=== PATIENT | male | born 1960 ===

== ENCOUNTER 2019-04-30 00:10 | Inpatient (IN) | payer OTHER ==
--- NOTE | 2019-04-30 02:48 | PDOC ---
Attending Attestation - Resident Resident Name: SrinathPaul - ED Attending Attestation I have performed the following: I have examined & evaluated the patient, The case was reviewed & discussed with the resident, I agree w/resident's findings & plan - HPI HPI: 04/30/19 04:22 see resident hpi - Physicial Exam PE: 04/30/19 04:22 agree with resident exam - Medical Decision Making 04/30/19 04:22 58-year-old male with pain and swelling to the left foot Patient has chronic swelling and ulceration to the left great toe but states he had a new injury while visiting [place] Is now painful and swollen On exam foot is vascularly intact but is discolored with deformity and discoloration extending into the distal great toe with ulcer formation Patient will require admission and IV antibiotics
[2019-04-30] MEDS ORDERED: SODIUM CHLORIDE IV ONE (03:00)
--- NOTE | 2019-04-30 03:00 | PDOC ---
History of Present Illness - General Chief Complaint: Edema Stated Complaint: L FOOT SWOLLEN Time Seen by Provider: 04/30/19 02:33 History Source: Patient Exam Limitations: No Limitations - History of Present Illness Initial Comments: 58M PMH IDDM, CAD s/p 5 stents, HTN presenting with pain and swelling of the left foot, especially the great toe, w/ radiation up the salvatore-medial aspect of the LLE since getting off the plane today. Pt was in [place], 2 weeks ago stepped on something that puncture his left great toe, saw MD there and was given abx. Sister at bedside states that left great toe is starting to smell. Pain and swelling started after the plane ride. Endorses 3 days of cough, f/c, and reduced appetite. Denies cp/sob, h/o VTE. No hemoptysis, recent surgery. NKDA No PCP current smoker denies etoh and drugs Past History - Past Medical History Allergies/Adverse Reactions: Allergies Allergy/AdvReac Type Severity Reaction Status Date / Time No Known Allergies Allergy Verified 04/30/19 02:29 Home Medications: Ambulatory Orders Alcohol Antiseptic Pads [Alcohol Prep Pad] 1 each TP TID #50 med..pad 05/04/19 Amoxicillin/Potassium Clav [Augmentin 875-125 Tablet] 1 each PO BID #14 tablet 05/04/19 Aspirin [ASA -] 81 mg PO DAILY #30 tab.chew 05/04/19 Atorvastatin Ca [Lipitor] 40 mg PO DAILY #30 tablet 05/04/19 Insulin Regular [Novolin R Vial -] 14 unit SQ DAILY 30 Days units 05/04/19 Insulin Sliding Scale [Novolog Vial Sliding Scale -] 1 vial SQ ACHS #2 units Lancets 1 each MC AC #50 each 05/04/19 Lisinopril [Zestril] 2.5 mg PO DAILY #30 tablet 05/04/19 Miscellaneous Medical Supply [Glucometer Device] 1 each SQ ASDIR #1 kit Miscellaneous Medical Supply [Glucometer Test Strips #100] 1 each SQ ASDIR #1 box 05/04/19 Mupirocin Ointment [Bactroban] 1 applic TP TID #1 tube 05/04/19 Pen Needle, Diabetic [Lawtey] 1 each MC TID #50 dis.needle 05/04/19 metFORMIN HCL [Metformin HCl] 500 mg PO BID 30 Days #60 tablet 05/04/19 - Psycho Social/Smoking Cessation Hx Smoking History: Never smoked Review of Systems - Review of Systems Able to Perform ROS?: Yes Comments:: CONSTITUTIONAL: Endorses F / C HEENT: Denies sore throat, rhinorrhea RESP: Endorses cough. Denies SOB CARD: Denies chest pain, palpitations GI: Endorses reduced appetite. Denies N / V / D, abdominal pain, bloody stool, inability to tolerate PO : Denies dysuria, hematuria, frequency SKIN: Denies rashes NEURO: Denies numbness, tingling, weakness MSK: Endorses left foot pain and swelling *Physical Exam - Vital Signs Last Vital Signs Temp Pulse Resp BP Pulse Ox 99 F 102 H 18 129/83 98 04/30/19 00:15 04/30/19 00:15 04/30/19 00:15 04/30/19 00:15 04/30/19 00:15 - Physical Exam VS: fever GEN: NAD, comfortable. AAOx3. HEENT: NC/AT. No facial asymmetry. Normal voice. Supple neck w/ FROM. CV: S1/S2, RRR, no m/r/g LUNG: CTAB, no wheezes, crackles, rales, rhonchi. GI: Soft, ndnt, +BS, no guarding, no rebound. No masses. EXTREMITIES: Left foot vascularly intact, swollen w/ 2+ edema w/o crepitus, TTP over the dorsal aspect of the left foot and anteromedial aspect of the ruffin. There is an dry nondraining ulcer at the tip of the left great toe, left great toe is dark compared to rest of foot, there is no sensation of the left great toe. Sensation is intact of the remainder of the LLE. RLE is unremarkable, no ulcers, no discoloration, no TTP, intact sensation, no swelling. No calf tenderness b/l. SKIN: Warm, dry, no rashes appreciated. PSYCH: Normal mood and affect. NEURO: Moving all extremities ED Treatment Course - LABORATORY CBC & Chemistry Diagram: 05/04/19 08:50 05/04/19 08:50 Medical Decision Making - Medical Decision Making 04/30/19 03:00 58M PMH IDDM, CAD s/p 5 stents, HTN presenting with left foot pain and swelling x 1 day in setting of puncturing his left great toe 2 weeks ago. +f/c. +TTP anteromedial aspect of the left ruffin, dorsum of the left foot, edema of the left foot. Dark left great toe w/ nondraining ulcer w/o sensation. DDx - eval for sepsis; concern for OM, septic arthritis, cellulitis, gangrene of the left great toe/foot - sepsis labs - ESR, CRP - fluids - vanc/zosyn (+pseudomonal coverage) - XR left foot 04/30/19 05:47 labs reviewed - WBC 11.7 - CRP 11.8 - Trop 0.06 EKG HR 91 VA 184 QRS 98 QTc 435 NSR, TWI inversions III and aVF; no priors to compare XR concerning for OM - admit med/surg vs tele 04/30/19 06:[address] Raza Discharge - Discharge Information Problems reviewed: Yes Clinical Impression/Diagnosis: Osteomyelitis Qualifiers: Osteomyelitis type: other Osteomyelitis location: foot Laterality: unspecified laterality Qualified Code(s): M86.8X7 - Other osteomyelitis, ankle and foot Condition: Good - Follow up/Referral - Patient Discharge Instructions - Post Discharge Activity
[2019-04-30 04:07] LABS: BASO % 0.8 % (0-2.0); EOS % 0.3 % (0-4.5); HEMATOCRIT 38.4 % (35.4-49); HEMOGLOBIN 12.6 GM/dL (11.7-16.9); LYMPH % 9.2 % (8-40); MCH 26.7 pg (25.7-33.7); MCHC 32.9 g/dl (32.0-35.9); MEAN CELL VOLUME 81.3 fl (80-96); MEAN PLT VOLUME 8.2 fl (7.5-11.1); MONO % 11.5 % (3.8-10.2); NEUT % 78.2 % (42.8-82.8); PLATELET COUNT 383 K/MM3 (134-434); RBC 4.72 M/mm3 (4.00-5.60); RDW 12.7 % (11.9-15.9); WHITE BLOOD COUNT 11.7 K/mm3 (4.0-10.0)
[2019-04-30 04:08] LABS: VENOUS PC02 44.5 mmHg (38-52); VENOUS PH 7.39 (7.31-7.41)
[2019-04-30 04:09] LABS: VENOUS PO2 < 49 mmHg (28-48)
[2019-04-30] MEDS ORDERED: VANCOMYCIN HCL 1,500 MG in DEXTROSE 5%-WATER - 500 ML IVPB ONE (04:12)
[2019-04-30] MEDS ORDERED: PIPERACILLIN/TAZOB 4.5 GM 4.5 GM in DEXTROSE 5%-WATER 100 ML IVPB ONE (04:13)
[2019-04-30] MEDS ORDERED: ACETAMINOPHEN 1000 MG/100 ML VIAL (NON FORMULARY) IVPB ONE (04:16)
[2019-04-30 04:22] LABS: INR 1.23 (0.83-1.09); PROTHROMBIN TIME (PATIENT) 14.6 SEC (9.7-13.0)
[2019-04-30 04:24] LABS: ACTIVATED PTT 31.1 SECONDS (25.2-36.5)
[2019-04-30 04:33] LABS: BILIRUBIN,TOTAL 0.5 mg/dL (0.2-1); BLOOD UREA NITROGEN 14.6 mg/dL (7-18); CALCIUM 8.7 mg/dL (8.5-10.1); CREATININE 1.1 mg/dL (0.55-1.3); POTASSIUM 4.4 mmol/L (3.5-5.1)
[2019-04-30] MEDS ORDERED: PIPERACILLIN/TAZOB 4.5 GM 4.5 GM/100 ML BAG IVPB ONE ×2 (06:18→11:37)
--- NOTE | 2019-04-30 06:59 | PDOC ---
*Physical Exam - Vital Signs Last Vital Signs Temp Pulse Resp BP Pulse Ox 100.3 F H 102 H 18 129/83 98 04/30/19 03:59 04/30/19 00:15 04/30/19 00:15 04/30/19 00:15 04/30/19 00:15 ED Treatment Course - LABORATORY CBC & Chemistry Diagram: 04/30/19 03:40 04/30/19 03:40 - ADDITIONAL ORDERS Additional order review: Laboratory Results 04/30/19 04/30/19 04/30/19 03:40 03:40 03:40 PT with INR INR PTT (Actin FS) VBG pH 7.39 POC VBG pCO2 44.5 POC VBG pO2 < 49 H VBG HCO3 26.5 VBG O2 Sat (Genna) 41.2 L VBG Base Excess 1.8 Sodium Potassium Chloride Carbon Dioxide Anion Gap BUN Creatinine Est GFR (CKD-EPI)AfAm Est GFR (CKD-EPI)NonAf Random Glucose Lactic Acid Calcium Total Bilirubin AST ALT Alkaline Phosphatase Troponin I 0.06 H C-Reactive Protein 11.8 H Total Protein Albumin 04/30/19 04/30/19 04/30/19 03:40 03:40 03:40 PT with INR 14.60 H INR 1.23 H PTT (Actin FS) 31.1 VBG pH POC VBG pCO2 POC VBG pO2 VBG HCO3 VBG O2 Sat (Genna) VBG Base Excess Sodium 130 L Potassium 4.4 Chloride 96 L Carbon Dioxide 28 Anion Gap 6 L BUN 14.6 Creatinine 1.1 Est GFR (CKD-EPI)AfAm 86.52 Est GFR (CKD-EPI)NonAf 74.65 Random Glucose 273 H Lactic Acid 1.2 Calcium 8.7 Total Bilirubin 0.5 AST 14 L ALT 17 Alkaline Phosphatase 85 Troponin I C-Reactive Protein Total Protein 8.0 Albumin 3.0 L 04/30/19 03:40 RBC 4.72 MCV 81.3 MCHC 32.9 RDW 12.7 MPV 8.2 Neutrophils % 78.2 Lymphocytes % 9.2 Monocytes % 11.5 H Eosinophils % 0.3 Basophils % 0.8 - Medications Given in the ED: ED Medications Discontinued Medications Generic Name Dose Route Start Last Admin Trade Name Freq PRN Reason Stop Dose Admin Sodium Chloride 2,478 mls @ 1,239 mls/hr 04/30/19 03:00 04/30/19 04:10 Normal Saline - 30 ml/kg infuse over 2 hr (2478 ml) 04/30/19 04:59 1,239 mls/hr IV Administration ONCE ONE Piperacillin Sod/Tazobactam 100 mls @ 200 mls/hr 04/30/19 04:13 04/30/19 06: 26 Sod 4.5 gm/ Dextrose IVPB 04/30/19 04:42 200 mls/hr ONCE ONE Administration Protocol Medical Decision Making - Medical Decision Making 04/30/19 06:55 Pt received on sign out from Dr. Yo. Pt from [place], had wound to left toe. On flight yesterday and subsequently developed LLE swelling. Absent sensation of left toe. XR shows likely osteo of left toe. CPR elevated 11.8. Trop elevated 0.06. EKG shows T wave inversions in leads III and aVF. Given vanc/zosyn pseudomonal dose. -admit to medicine -2nd trop 04/30/19 0900 D/w the hospitalist team who accepts the patient for admission. Discharge - Discharge Information Problems reviewed: Yes Clinical Impression/Diagnosis: Osteomyelitis Condition: Fair - Admission Yes - Follow up/Referral - Patient Discharge Instructions - Post Discharge Activity
--- NOTE | 2019-04-30 09:08 | HP ---
CHIEF COMPLAINT: L. foot pain and swelling PCP: unknown HISTORY OF PRESENT ILLNESS: Pt. is a 58 y.o. M w. PMHx. of DM2 with peripheral neuropathy(diagnosed 25 years ago), CAD( s/p 5 stents 5-6 years ago), and HTN presents for left hallux pain and swelling over the last 2 weeks. Pt. states that around 2 weeks ago he stepped on something but does not remember what or when. He noticed that his big toes was getting more swollen and had burning sensation at that time so her went to a Physician in [place] who gave him a 5 day course of an antibiotic that he took twice a day (Augmentin). Pt. states that 3 days ago he started to develop cough, fever, chills and decreased PO intake. 2 days ago he started to develop nausea and vomiting. Pt. states that while in [place] and after his big toe injury he did step in sand, soil and water without shoes. Per Pt. sister at bedside, Pt. is an avid diana and frequently gets into accidents from this. Pt. had a left big toe injury 5-6 years ago which required IV antibitics and I&D. Pt. endorses pain that travels from his left toe to just below the medial aspect of his left leg. Pt. states that he has had a flu vaccine but is unsure if he had a tetanus vaccine. Pt. has never had a Pneumonia vaccine or colonoscopy. Pt. has strong family history in his parents and siblings for heart disease and diabetes. Pt. father at 46 from massive LA. Pt. endorses slight numbness on his left foot compared to his right. Pt. currently denies any shortness of breath, chest pain, lower extremity weakness, abdominal pain, diarrhea or constipation. ER course was notable for: (1)Vanc/ Zosyn, BCx., UCx. (2)Foot X-ray, CXR (3) Recent Travel: Just returned from [place] Yesterday PAST MEDICAL HISTORY: As above PAST SURGICAL HISTORY: L. Big toe I&D Social History: SmokinPPD x 30years Alcohol: Denies Drugs: Denies Allergies No Known Allergies Allergy (Verified 04/30/19 02:29) HOME MEDICATIONS: Home Medications Medication Instructions Recorded Aspirin [ASA -] 81 mg PO DAILY 04/30/19 Insulin Regular [NOVOLIN R VIAL 14 unit SQ DAILY 04/30/19 *IVPUSH / ER / ICU Only*] REVIEW OF SYSTEMS As above. PHYSICAL EXAMINATION Vital Signs - 24 hr 04/30/19 04/30/19 04/30/19 00:15 03:59 06:57 Temperature 99 F 100.3 F H 98.3 F Pulse Rate 102 H Pulse Rate [ 88 Left Radial] Respiratory 18 15 Rate Blood Pressure 129/83 Blood Pressure 145/85 [Right Arm] O2 Sat by Pulse 98 98 Oximetry (%) GENERAL: Awake, alert, and fully oriented, in no acute distress. HEAD: Normal with no signs of trauma. EYES: Extraocular movements intact, sclera anicteric, conjunctiva clear. EARS, NOSE, THROAT: Ears normal, nares patent, moist mucous membranes. LUNGS: Breath sounds equal, clear to auscultation bilaterally. No wheezes, and no crackles. No accessory muscle use. HEART: Regular rate and rhythm, normal S1 and S2 without murmur ABDOMEN: Soft, nontender, not distended, normoactive bowel sounds, no guarding, no rebound, no masses. MUSCULOSKELETAL: Normal range of motion at all joints. UPPER EXTREMITIES: 2+ radial pulses, warm, well-perfused. No cyanosis. No clubbing. No peripheral edema. LOWER EXTREMITIES: 2+ dorsal pedal pulses, warm, well-perfused. Tenderness present from the dorsum of the lower extremity to the medial aspect of the left leg to just below the knee. L. Hallux swollen, darkened to metatarsal, non- draining with opened wound, no crepitus palpated NEUROLOGICAL: 5/5 strength througout, mild numbness in Left foot. Sensation intact in upper extremities PSYCHIATRIC: Cooperative. Good eye contact. Appropriate mood and affect. SKIN: Warm, dry, normal turgor, no rashes or lesions noted, normal capillary refill. Laboratory Results - last 24 hr 04/30/19 04/30/19 04/30/19 03:40 03:40 03:40 WBC 11.7 H RBC 4.72 Hgb 12.6 Hct 38.4 MCV 81.3 MCH 26.7 MCHC 32.9 RDW 12.7 Plt Count 383 MPV 8.2 Absolute Neuts (auto) 9.2 H Neutrophils % 78.2 Lymphocytes % 9.2 Monocytes % 11.5 H Eosinophils % 0.3 Basophils % 0.8 Nucleated RBC % 0 ESR PT with INR INR PTT (Actin FS) VBG pH POC VBG pCO2 POC VBG pO2 VBG HCO3 VBG O2 Sat (Genna) VBG Base Excess Sodium 130 L Potassium 4.4 Chloride 96 L Carbon Dioxide 28 Anion Gap 6 L BUN 14.6 Creatinine 1.1 Est GFR (CKD-EPI)AfAm 86.52 Est GFR (CKD-EPI)NonAf 74.65 Random Glucose 273 H Lactic Acid 1.2 Calcium 8.7 Total Bilirubin 0.5 AST 14 L ALT 17 Alkaline Phosphatase 85 Troponin I C-Reactive Protein Total Protein 8.0 Albumin 3.0 L 04/30/19 04/30/19 04/30/19 03:40 03:40 03:40 WBC RBC Hgb Hct MCV MCH MCHC RDW Plt Count MPV Absolute Neuts (auto) Neutrophils % Lymphocytes % Monocytes % Eosinophils % Basophils % Nucleated RBC % ESR PT with INR 14.60 H INR 1.23 H PTT (Actin FS) 31.1 VBG pH 7.39 POC VBG pCO2 44.5 POC VBG pO2 < 49 H VBG HCO3 26.5 VBG O2 Sat (Genna) 41.2 L VBG Base Excess 1.8 Sodium Potassium Chloride Carbon Dioxide Anion Gap BUN Creatinine Est GFR (CKD-EPI)AfAm Est GFR (CKD-EPI)NonAf Random Glucose Lactic Acid Calcium Total Bilirubin AST ALT Alkaline Phosphatase Troponin I 0.06 H C-Reactive Protein Total Protein Albumin 04/30/19 04/30/19 03:40 03:40 WBC RBC Hgb Hct MCV MCH MCHC RDW Plt Count MPV Absolute Neuts (auto) Neutrophils % Lymphocytes % Monocytes % Eosinophils % Basophils % Nucleated RBC % ESR 72 H PT with INR INR PTT (Actin FS) VBG pH POC VBG pCO2 POC VBG pO2 VBG HCO3 VBG O2 Sat (Genna) VBG Base Excess Sodium Potassium Chloride Carbon Dioxide Anion Gap BUN Creatinine Est GFR (CKD-EPI)AfAm Est GFR (CKD-EPI)NonAf Random Glucose Lactic Acid Calcium Total Bilirubin AST ALT Alkaline Phosphatase Troponin I C-Reactive Protein 11.8 H Total Protein Albumin ASSESSMENT/PLAN: Pt. is a 58 y.o. M w. PMHx. of DM2 with peripheral neuropathy(diagnosed 25 years ago), CAD( s/p 5 stents 5-6 years ago), and HTN presents for left hallux pain and swelling over the last 2 weeks. #Diabetic Foot infection Foot X-ray: highly suggestive of OM, with soft tissue air ESR: 72 CRP: 11.8 LA: 1.2 will continue with Vancomycin and Zosyn, because of broad differential of pathogens given multiple environments that Pt. exposed his foot to including Pseudomonas which requires Zosyn at 4.5gm Q6H ID Consult to Dr. Sneed appreiciated Podiatry Consult to Dr. Weiss appreciated Wound Care Consult to Dr. John appreciated #DM2- uncontrolled Initial Glucose 273 Pt. states that in [place] his Glucose was 300, but he only checked once, [place] glucose is usually in the 250s. Will start Insulin sliding scale and calculate a long acting dose to better control glucose levels. Pt. will require outpatient Podiatry and Ophthalmology follow-up. f/u UA for proteinuria #Nicotine Dependance f/u Low dose Chest CT will give Nicotine Patch #CAD (s/p 5-6 stents) Pt. states that he takes ASA 81 mg only and was discontinued off another "blood thinner" by his doctor c/w ASA 81mg #HTN Pt. denies taking any medications for blood pressure. Will continue to monitor, Pt. will likely need to be started on an RIC/ARB prior to discharge for renal protection. f/u Urine Cr. ratio as Pt. has 2+ protein in UA #FEN no IVF, encourage PO intake monitor electrolytes and replete as needed Diabetic Diet #DVT Ppx. Hep SQ TID Visit type - Emergency Visit Emergency Visit: Yes ED Registration Date: 04/30/19 Care time: The patient presented to the Emergency Department on the above date and was hospitalized for further evaluation of their emergent condition. - New Patient This patient is new to me today: Yes Date on this admission: 04/30/19 - Critical Care Critical Care patient: No ATTENDING PHYSICIAN STATEMENT I saw and evaluated the patient. I reviewed the resident's note and discussed the case with the resident. I agree with the resident's findings and plan as documented. SUBJECTIVE: OBJECTIVE: ASSESSMENT AND PLAN:
[2019-04-30] MEDS ORDERED: PIPERACILLIN/TAZOB 4.5 GM 4.5 GM in DEXTROSE 5%-WATER - 100 ML IVPB SCH (10:00)
[2019-04-30] MEDS ORDERED: TETANUS AND DIPHTHERIA TOXOID 0.5 ML DISP.SYRIN IM ONE (10:08)
[2019-04-30] MEDS ORDERED: TETANUS IMMUNE GLOBULIN 250 UNITS DISP.SYRIN IM ONE ×2 (10:45→11:00)
[2019-04-30] MEDS ORDERED: TETANUS TOXOID ADSORBED IM ONE (11:00)
[2019-04-30] MEDS: INSULIN SLIDING SCALE (NOVOLOG) 1 VIAL SQ SCH ×3 (11:30→21:41)
[2019-04-30] MEDS: HEPARIN NA (PORCINE) 5,000 UNITS/ML 1ML VIAL SQ SCH ×2 (11:30→18:38)
[2019-04-30] MEDS: ASPIRIN 81 MG CHEWABLE TABLETS PO SCH (11:30)
[2019-04-30] MEDS ORDERED: ASPIRIN 81 MG CHEWABLE TABLETS ONE (11:36)
[2019-04-30] MEDS ORDERED: HEPARIN NA (PORCINE) 5,000 UNITS/ML 1ML VIAL ONE ×2 (11:36→18:18)
[2019-04-30] MEDS ORDERED: DIPHTH,PERTUSS(ACELL),TET 0.5 ML DISP.SYRIN IM ONE (11:41)
[2019-04-30] MEDS ORDERED: PIPERACILLIN/TAZOB 4.5 GM 4.5 GM in DEXTROSE 5%-WATER 100 ML IVPB SCH (12:00)
--- NOTE | 2019-04-30 12:36 | EKG ---
Test Reason : Blood Pressure : / mmHG Vent. Rate : 091 BPM Atrial Rate : 091 BPM P-R Int : 184 ms QRS Dur : 098 ms QT Int : 354 ms P-R-T Axes : 068 037 006 degrees QTc Int : 435 ms NORMAL SINUS RHYTHM LOW VOLTAGE QRS POSSIBLE INFERIOR INFARCT , AGE UNDETERMINED ABNORMAL ECG Confirmed by MD ARLENE, JULIO ([id number]) on 04/30/2019 12:35:34 PM Referred By: Confirmed By:JULIO JACOBS MD
[2019-04-30 12:46] LABS: URINE APPEARANCE Clear; URINE BILIRUBIN Negative (NEGATIVE); URINE COLOR Yellow; URINE GLUCOSE (UA) 2+ (NEGATIVE); URINE KETONE 1+ (NEGATIVE); URINE LEUK ESTERASE Negative (NEGATIVE); URINE NITRITE Negative (NEGATIVE); URINE PROTEIN 2+ (NEGATIVE); URINE UROBILINOGEN 0.2 mg/dL (0.2-1.0)
[2019-04-30 13:24] LABS: URINE RBC 6.9 /hpf (0-4); URINE WBC 4.1 /hpf (0-5)
[2019-04-30 13:25] LABS: EPI CELLS 1.9 /HPF (0-5/HPF); HYALINE CASTS 0.73 /lpf (0-8); URINE BACTERIA 13.6 /hpf (NEGATIVE)
--- NOTE | 2019-04-30 15:08 | PN ---
Progress Note (short form) - Note Progress Note: ID consult dictated imp/reccd 58 yo man with longstanding DM just returned from [place] with infection of his left first toe was taking oral antiibotics for 5 days piror to admission +fevers and chills [place] foot became more swollen abscess first toe left foot r/o osteo surgery to debride the ulcer mri r/o osteo vanco/zosyn f/u cultures Problem List - Problems (1) Diabetic infection of left foot Code(s): E11.628 - TYPE 2 DIABETES MELLITUS WITH OTHER SKIN COMPLICATIONS; L08.9 - LOCAL INFECTION OF THE SKIN AND SUBCUTANEOUS TISSUE, UNSP (2) Osteomyelitis Code(s): M86.9 - OSTEOMYELITIS, UNSPECIFIED
[2019-04-30] MEDS: PIPERACILLIN/TAZOB 4.5 GM 4.5 GM in DEXTROSE 5%-WATER 100 ML IVPB SCH ×3 (17:16→18:38)
--- NOTE | 2019-04-30 18:43 | PN ---
Teaching Attending Note Name of Resident: Paul Trivedi ATTENDING PHYSICIAN STATEMENT I saw and evaluated the patient. I reviewed the resident's note and discussed the case with the resident. I agree with the resident's findings and plan as documented. SUBJECTIVE: Complains of discomfort L great toe, extending up foot. OBJECTIVE: Low grade fever, Tmax 100.3 Last Vital Signs Temp Pulse Resp BP Pulse Ox 99.9 F H 86 18 118/68 99 04/30/19 17:19 04/30/19 18:39 04/30/19 18:39 04/30/19 18:39 04/30/19 18:39 HEENT - Atraumatic, Normocephalic. Heart - S1, S2, RRR Lungs - clear to auscultation Abdomen - Soft, non-tender. Bowel Sounds normal. Extremities - L foot swelling extending correction up ruffin. Ulcer L great toe with swelling/tenderness and some drainage. No evidence of subcutaneous air in foot clinically. Neuro - AAO x 3. Tone/Power normal all extremities. Laboratory Results - last 24 hr 04/30/19 04/30/19 04/30/19 03:40 03:40 03:40 WBC 11.7 H RBC 4.72 Hgb 12.6 Hct 38.4 MCV 81.3 MCH 26.7 MCHC 32.9 RDW 12.7 Plt Count 383 MPV 8.2 Absolute Neuts (auto) 9.2 H Neutrophils % 78.2 Lymphocytes % 9.2 Monocytes % 11.5 H Eosinophils % 0.3 Basophils % 0.8 Nucleated RBC % 0 ESR PT with INR INR PTT (Actin FS) VBG pH POC VBG pCO2 POC VBG pO2 VBG HCO3 VBG O2 Sat (Genna) VBG Base Excess Sodium 130 L Potassium 4.4 Chloride 96 L Carbon Dioxide 28 Anion Gap 6 L BUN 14.6 Creatinine 1.1 Est GFR (CKD-EPI)AfAm 86.52 Est GFR (CKD-EPI)NonAf 74.65 POC Glucometer Random Glucose 273 H Lactic Acid 1.2 Calcium 8.7 Total Bilirubin 0.5 AST 14 L ALT 17 Alkaline Phosphatase 85 Troponin I C-Reactive Protein Total Protein 8.0 Albumin 3.0 L Urine Color Urine Appearance Urine pH Ur Specific [place] Urine Protein Urine Glucose (UA) Urine Ketones Urine Blood Urine Nitrite Urine Bilirubin Urine Urobilinogen Ur Leukocyte Esterase Urine WBC (Auto) Urine RBC (Auto) Urine Casts (Auto) U Epithel Cells (Auto) Urine Bacteria (Auto) 04/30/19 04/30/19 04/30/19 03:40 03:40 03:40 WBC RBC Hgb Hct MCV MCH MCHC RDW Plt Count MPV Absolute Neuts (auto) Neutrophils % Lymphocytes % Monocytes % Eosinophils % Basophils % Nucleated RBC % ESR PT with INR 14.60 H INR 1.23 H PTT (Actin FS) 31.1 VBG pH 7.39 POC VBG pCO2 44.5 POC VBG pO2 < 49 H VBG HCO3 26.5 VBG O2 Sat (Genna) 41.2 L VBG Base Excess 1.8 Sodium Potassium Chloride Carbon Dioxide Anion Gap BUN Creatinine Est GFR (CKD-EPI)AfAm Est GFR (CKD-EPI)NonAf POC Glucometer Random Glucose Lactic Acid Calcium Total Bilirubin AST ALT Alkaline Phosphatase Troponin I 0.06 H C-Reactive Protein Total Protein Albumin Urine Color Urine Appearance Urine pH Ur Specific [place] Urine Protein Urine Glucose (UA) Urine Ketones Urine Blood Urine Nitrite Urine Bilirubin Urine Urobilinogen Ur Leukocyte Esterase Urine WBC (Auto) Urine RBC (Auto) Urine Casts (Auto) U Epithel Cells (Auto) Urine Bacteria (Auto) 04/30/19 04/30/19 04/30/19 03:40 03:40 08:37 WBC RBC Hgb Hct MCV MCH MCHC RDW Plt Count MPV Absolute Neuts (auto) Neutrophils % Lymphocytes % Monocytes % Eosinophils % Basophils % Nucleated RBC % ESR 72 H PT with INR INR PTT (Actin FS) VBG pH POC VBG pCO2 POC VBG pO2 VBG HCO3 VBG O2 Sat (Genna) VBG Base Excess Sodium Potassium Chloride Carbon Dioxide Anion Gap BUN Creatinine Est GFR (CKD-EPI)AfAm Est GFR (CKD-EPI)NonAf POC Glucometer Random Glucose Lactic Acid Calcium Total Bilirubin AST ALT Alkaline Phosphatase Troponin I 0.06 H C-Reactive Protein 11.8 H Total Protein Albumin Urine Color Urine Appearance Urine pH Ur Specific [place] Urine Protein Urine Glucose (UA) Urine Ketones Urine Blood Urine Nitrite Urine Bilirubin Urine Urobilinogen Ur Leukocyte Esterase Urine WBC (Auto) Urine RBC (Auto) Urine Casts (Auto) U Epithel Cells (Auto) Urine Bacteria (Auto) 04/30/19 04/30/19 04/30/19 08:37 11:32 12:00 WBC RBC Hgb Hct MCV MCH MCHC RDW Plt Count MPV Absolute Neuts (auto) Neutrophils % Lymphocytes % Monocytes % Eosinophils % Basophils % Nucleated RBC % ESR PT with INR INR PTT (Actin FS) VBG pH POC VBG pCO2 POC VBG pO2 VBG HCO3 VBG O2 Sat (Genna) VBG Base Excess Sodium Potassium Chloride Carbon Dioxide Anion Gap BUN Creatinine Est GFR (CKD-EPI)AfAm Est GFR (CKD-EPI)NonAf POC Glucometer 227 Random Glucose Lactic Acid 1.2 Calcium Total Bilirubin AST ALT Alkaline Phosphatase Troponin I C-Reactive Protein Total Protein Albumin Urine Color Yellow Urine Appearance Clear Urine pH 6.0 Ur Specific [place] 1.020 Urine Protein 2+ H Urine Glucose (UA) 2+ H Urine Ketones 1+ H Urine Blood Trace-lysed Urine Nitrite Negative Urine Bilirubin Negative Urine Urobilinogen 0.2 Ur Leukocyte Esterase Negative Urine WBC (Auto) 4.1 Urine RBC (Auto) 6.9 Urine Casts (Auto) 0.73 U Epithel Cells (Auto) 1.9 Urine Bacteria (Auto) 13.6 04/30/19 04/30/19 12:45 17:52 WBC RBC Hgb Hct MCV MCH MCHC RDW Plt Count MPV Absolute Neuts (auto) Neutrophils % Lymphocytes % Monocytes % Eosinophils % Basophils % Nucleated RBC % ESR PT with INR INR PTT (Actin FS) VBG pH POC VBG pCO2 POC VBG pO2 VBG HCO3 VBG O2 Sat (Genna) VBG Base Excess Sodium Potassium Chloride Carbon Dioxide Anion Gap BUN Creatinine Est GFR (CKD-EPI)AfAm Est GFR (CKD-EPI)NonAf POC Glucometer 251 Random Glucose Lactic Acid Calcium Total Bilirubin AST ALT Alkaline Phosphatase Troponin I 0.07 H C-Reactive Protein Total Protein Albumin Urine Color Urine Appearance Urine pH Ur Specific [place] Urine Protein Urine Glucose (UA) Urine Ketones Urine Blood Urine Nitrite Urine Bilirubin Urine Urobilinogen Ur Leukocyte Esterase Urine WBC (Auto) Urine RBC (Auto) Urine Casts (Auto) U Epithel Cells (Auto) Urine Bacteria (Auto) Current Medications Generic Name Dose Route Start Last Admin Trade Name Freq PRN Reason Stop Dose Admin Aspirin 81 mg 04/30/19 10:45 04/30/19 11:30 Asa - PO 81 mg DAILY DORIAN Administration Heparin Sodium (Porcine) 5,000 unit 04/30/19 10:00 04/30/19 18:38 Heparin - SQ 5,000 unit Q8H-IV DORIAN Administration Vancomycin HCl 1,250 mg/ 250 mls @ 166.667 mls/hr 04/30/19 19:00 Dextrose IVPB Q12H DORIAN Protocol Piperacillin Sod/Tazobactam 100 mls @ 200 mls/hr 04/30/19 18:00 04/30/19 18: 38 Sod 4.5 gm/ Dextrose IVPB 200 mls/hr Q8H-IV DORIAN Administration Protocol Insulin Aspart 1 vial 04/30/19 11:00 04/30/19 18:00 Novolog Vial Sliding Scale - SQ 4 units ACHS DORIAN Administration Protocol Nicotine 7 mg 04/30/19 13:00 Nicoderm Patch - TD DAILY [facility] Home Medications Medication Instructions Recorded Aspirin [ASA -] 81 mg PO DAILY 04/30/19 Insulin Regular [NOVOLIN R VIAL 14 unit SQ DAILY 04/30/19 *IVPUSH / ER / ICU Only*] ASSESSMENT AND PLAN: 58 year old male with DM2 with peripheral neuropathy, CAD (s/p 5 stents 5-6 years ago), and HTN presents with pain/swelling/tenderness L great toe with associated fever/chills after traumatic injury/puncture 2 weeks ago. 1. Infected L Great Toe with Cellulitis and concern for OM Xray L foot - findings suggestive of OM distal phalynx MRI pending Continue Zosyn/Vanco Wound Cx/Blood Cx ordered ID following Podiatry/Wound Care eval requested. 2. DM 2, uncontrolled. Maintain on Insulin sliding scale. 3. CAD s/p PCI/Stent x 5 Continue Aspirin. Not on Statin, reason unclear. Mild flat elevation in Troponins. Cardiology eval for optimization of medications. 4. 6mm calcified RUL granloma, unclear past TB exposure. No active pulmonary disease currently. For Pulm eval as out-patient. DVT Px - Heparin SQ
[2019-04-30] MEDS ORDERED: VANCOMYCIN 1,500 MG in DEXTROSE 5%-WATER - 500 ML IVPB SCH (19:00)
[2019-04-30] MEDS ORDERED: VANCOMYCIN HCL 1,500 MG in DEXTROSE 5%-WATER - 500 ML IVPB SCH (19:15)
[2019-04-30] MEDS: CLINDAMYCIN 600MG PREMIX IVPB 600 MG/50 ML BAG IVPB SCH (19:58)
[2019-04-30] MEDS: NICOTINE 7 MG/24 HOURS TOPICAL PATCH TD SCH (19:58)
[2019-04-30] MEDS: VANCOMYCIN 1,250 MG in DEXTROSE 5%-WATER - 250 ML IVPB SCH (20:28)
[2019-04-30] MEDS ORDERED: MORPHINE SULFATE 2 MG/ML VIAL IVPUSH PRN (20:38)
[2019-04-30] MEDS ORDERED: SODIUM CHLORIDE 1,000 ML IV SCH (20:45)
[2019-05-01 00:11] VITALS: BMI 25.1
[2019-05-01] MEDS ORDERED: DEXTROSE 5%-WATER 100 ML IVPB ONE ×3 (01:24→17:47)
[2019-05-01] MEDS ORDERED: PIPERACILLIN/TAZOBACTAM 4.5 GM VIAL IVPB ONE ×3 (01:24→17:47)
[2019-05-01] MEDS: PIPERACILLIN/TAZOB 4.5 GM 4.5 GM in DEXTROSE 5%-WATER 100 ML IVPB SCH ×3 (01:29→18:01)
[2019-05-01] MEDS: HEPARIN NA (PORCINE) 5,000 UNITS/ML 1ML VIAL SQ SCH ×3 (01:38→21:24)
[2019-05-01] MEDS: CLINDAMYCIN 600MG PREMIX IVPB 600 MG/50 ML BAG IVPB SCH ×2 (02:04→09:36)
[2019-05-01] MEDS: VANCOMYCIN 1,250 MG in DEXTROSE 5%-WATER - 250 ML IVPB SCH ×2 (06:03→18:47)
[2019-05-01] MEDS: INSULIN SLIDING SCALE (NOVOLOG) 1 VIAL SQ SCH ×4 (06:05→21:24)
[2019-05-01 08:01] LABS: INR 1.29 (0.83-1.09); PROTHROMBIN TIME (PATIENT) 15.3 SEC (9.7-13.0)
[2019-05-01 08:04] LABS: BASO % 0.6 % (0-2.0); EOS % 1.3 % (0-4.5); HEMATOCRIT 31.7 % (35.4-49); HEMOGLOBIN 10.5 GM/dL (11.7-16.9); LYMPH % 11.1 % (8-40); MCH 26.7 pg (25.7-33.7); MCHC 33.2 g/dl (32.0-35.9); MEAN CELL VOLUME 80.4 fl (80-96); MEAN PLT VOLUME 8.2 fl (7.5-11.1); MONO % 12.1 % (3.8-10.2); NEUT % 74.9 % (42.8-82.8); PLATELET COUNT 347 K/MM3 (134-434); RBC 3.95 M/mm3 (4.00-5.60); RDW 12.6 % (11.9-15.9); WHITE BLOOD COUNT 11.4 K/mm3 (4.0-10.0)
[2019-05-01 08:31] LABS: ALBUMIN 2.2 g/dl (3.4-5.0); BILIRUBIN,TOTAL 0.5 mg/dL (0.2-1); BLOOD UREA NITROGEN 12.1 mg/dL (7-18); CALCIUM 7.9 mg/dL (8.5-10.1); CREATININE 0.9 mg/dL (0.55-1.3); MAGNESIUM 1.8 mg/dL (1.8-2.4); PHOSPHOROUS 2.3 mg/dL (2.5-4.9); POTASSIUM 4.5 mmol/L (3.5-5.1); TOT PROT 6.2 g/dl (6.4-8.2)
[2019-05-01] MEDS ORDERED: SODIUM PHOSPHATE - 15 MM in SODIUM CHLORIDE 250 ML IVPB ONE (10:00)
[2019-05-01] MEDS: ASPIRIN 81 MG CHEWABLE TABLETS PO SCH ×2 (10:06→10:27)
[2019-05-01] MEDS: NICOTINE 7 MG/24 HOURS TOPICAL PATCH TD SCH (10:06)
--- NOTE | 2019-05-01 10:15 | CONSULT ---
- Consultation REQUESTING PROVIDER: CONSULT REQUEST: We have been asked to surgically evaluate this patient for Vascular evaluation Lt great toe wound PCP:Omar Scott MD HISTORY OF PRESENT ILLNESS: 58yo M was admitted for Lt great toe wound and swelling. Pt states that he has been having on going wound on Lt great toe for several months had multiple debridements of toe in the past, both in [place]. Pt states that the swelling and pain got worse so came to the ED for evaluation. Pt has history of DM that is not well controlled. Pt also smokes 1ppd for 35yrs. Pt denies fever, chills , n/v. PMHx: DM Home Medications Medication Instructions Recorded Aspirin [ASA -] 81 mg PO DAILY 04/30/19 Insulin Regular [NOVOLIN R VIAL 14 unit SQ DAILY 04/30/19 *IVPUSH / ER / ICU Only*] Allergies Allergy/AdvReac Type Severity Reaction Status Date / Time No Known Allergies Allergy Verified 04/30/19 02:29 PHYSICAL EXAM: GENERAL: Awake, alert, and fully oriented, in no acute distress. HEAD: Normal with no signs of trauma. EYES: PERRL, sclera anicteric, conjunctiva clear. NECK: Normal ROM, supple without lymphadenopathy, JVD, or masses. LUNGS:Breathing comfortably HEART: Regular rate and rhythm. UPPER EXTREMITIES: warm, well-perfused. No cyanosis. Cap refill <2 seconds. No peripheral edema. LOWER EXTREMITIES: 2+ pulses, warm, well-perfused. No calf tenderness. No peripheral edema. Left great toe is boggy and swollen, tender to palpation, + erythema NEUROLOGICAL: Normal speech, gait not observed. PSYCH: Cooperative. Good eye contact. Appropriate mood and affect. SKIN: Warm, dry, normal turgor, no rashes or lesions noted. Vital Signs Temperature 98.5 F 05/01/19 06:00 Pulse Rate 76 05/01/19 06:00 Respiratory Rate 20 05/01/19 06:00 Blood Pressure 119/69 05/01/19 06:00 O2 Sat by Pulse Oximetry (%) 99 04/30/19 19:30 Lab Results WBC 11.4 K/mm3 (4.0-10.0) H 05/01/19 07:24 RBC 3.95 M/mm3 (4.00-5.60) L 05/01/19 07:24 Hgb 10.5 GM/dL (11.7-16.9) L 05/01/19 07:24 Hct 31.7 % (35.4-49) L D 05/01/19 07:24 MCV 80.4 fl (80-96) 05/01/19 07:24 MCHC 33.2 g/dl (32.0-35.9) 05/01/19 07:24 RDW 12.6 % (11.9-15.9) 05/01/19 07:24 Plt Count 347 K/MM3 (134-434) 05/01/19 07:24 Sodium 133 mmol/L (136-145) L 05/01/19 07:24 Potassium 4.5 mmol/L (3.5-5.1) 05/01/19 07:24 Chloride 101 mmol/L (98-107) 05/01/19 07:24 Carbon Dioxide 26 mmol/L (21-32) 05/01/19 07:24 Anion Gap 6 MMOL/L (8-16) L 05/01/19 07:24 BUN 12.1 mg/dL (7-18) 05/01/19 07:24 Creatinine 0.9 mg/dL (0.55-1.3) 05/01/19 07:24 Random Glucose 175 mg/dL (74-106) H 05/01/19 07:24 Calcium 7.9 mg/dL (8.5-10.1) L 05/01/19 07:24 INR 1.29 (0.83-1.09) H 05/01/19 07:24 Problem List - Problems (1) Diabetic infection of left foot Assessment/Plan: Plan -no signs of vascular disease, but pt will need debridement of great toe recommend Podiatry consult. -advised pt to quit tobacco and tight glycemic control to improve wound healing -pt may follow up with wound clinic as outpatient Pt discussed with Dr. John who agrees with plan. Code(s): E11.628 - TYPE 2 DIABETES MELLITUS WITH OTHER SKIN COMPLICATIONS; L08.9 - LOCAL INFECTION OF THE SKIN AND SUBCUTANEOUS TISSUE, UNSP
--- NOTE | 2019-05-01 10:47 | PN ---
Progress Note (short form) - Note Progress Note: Podiatry Consultation: 58 year old poorly controlled diabetic (Hga1c in hospital 12.1%) presents for admission for left great toe diabetic infection. Patient endorses a history of injury to the left great toe while he was hunting in his home country of [place] 2 weeks prior. He noted increased drainage to the toe where a puncture site is. He was prescribed PO abx while in [place] and the condition did not improve. He reported fever/chills while away. Currently afebrile. PMHx: poorly controlled diabetes mellitus, diabetic neuropathy, HTN, CAD s/p stent 5-6 years ago Meds: noted ALL: NKMA MANOLO: L foot: pedal pulses palpable 2/4, TG warm-warm, CFT brisk to all toes. There is a diabetic ulcer distal tuft of the left hallux, probing to bone, (+) purulence noted, (+) digital swelling noted, no soft tissue crepitus, no streaking cellulitis. Minimal tenderness to palpation of the left great toe. MRI: (+) osteomyelitis left hallux L foot XR: destructive process left hallux proximal and distal phalanx Imp: 58 year old poorly controlled diabetic male with left hallux diabetic infection and osteomyelitis 1. IV abx per infectious disease 2. Continue local care 3. Vascular input appreciated 4. Discussed treatment options at length with patient. He does not want to lose the toe and wishes to proceed with I&D with bone biopsy. He understands that he will need intravenous abx for 6 weeks. Will take deep cultures/path and follow perioperatively. Patient is currently NPO. Will plan for surgery around 2 PM today. Thank you for the courtesy of this consultation. Chet Weiss DPM
[2019-05-01] MEDS ORDERED: INSULIN (NOVOLOG) ASPART 100 UNITS/ML 10ML VIAL ONE (11:04)
[2019-05-01] MEDS ORDERED: PT OWN MED DRAWER 7, Y5N ONE ×2 (11:28→18:45)
--- NOTE | 2019-05-01 11:34 | CON.CARD ---
Consult Consult Specialty:: Cardiology Referred by:: Medicine Reason for Consultation:: preop, hx CAD - History of Present Illness Chief Complaint: foot pain History of Present Illness: 58M h/o DM, CAD s/p 5 stents 5-6 years ago, HTN p/w foot pain and swelling for two weeks. 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 Injured his foot while out hunting. Has osteomyelitis of toe with plan for debridement. - Alcohol/Substance Use Hx Alcohol Use: No - Smoking History Smoking history: Never smoked Home Medications - Allergies Allergies/Adverse Reactions: Allergies Allergy/AdvReac Type Severity Reaction Status Date / Time No Known Allergies Allergy Verified 04/30/19 02:29 - Home Medications Home Medications: Ambulatory Orders Aspirin [ASA -] 81 mg PO DAILY 04/30/19 Insulin Regular [NOVOLIN R VIAL *IVPUSH / ER / ICU Only*] 14 unit SQ DAILY 04/30 Family Medical History Family History: Unremarkable Review of Systems - Review of Systems Constitutional: reports: No Symptoms Eyes: reports: No Symptoms HENT: reports: No Symptoms Neck: reports: No Symptoms Cardiovascular: reports: No Symptoms Respiratory: reports: No Symptoms Gastrointestinal: reports: No Symptoms Genitourinary: reports: No Symptoms Musculoskeletal: reports: No Symptoms Integumentary: reports: No Symptoms Neurological: reports: No Symptoms Endocrine: reports: No Symptoms Hematology/Lymphatic: reports: No Symptoms Psychiatric: reports: No Symptoms Vital Signs: Vital Signs Temperature 98.5 F 05/01/19 06:00 Pulse Rate 76 05/01/19 06:00 Respiratory Rate 05/01/19 06:00 Blood Pressure 119/69 05/01/19 06:00 O2 Sat by Pulse Oximetry (%) 99 04/30/19 19:30 Constitutional: Yes: Well Nourished, No Distress, Calm Eyes: Yes: Conjunctiva Clear, EOM Intact HENT: Yes: Atraumatic, Normocephalic Neck: Yes: Supple, Trachea Midline Respiratory: Yes: Regular, CTA Bilaterally Gastrointestinal: Yes: Normal Bowel Sounds, Soft Cardiovascular: Yes: Regular Rate and Rhythm JVD: No Heart Sounds: Yes: S1, S2 Edema: No Integumentary: No: Jaundice Neurological: Yes: Alert, Oriented Psychiatric: No: Agitated - Other Data Labs, Other Data: CBC, BMP 05/01/19 07:24 05/01/19 07:24 INR, PTT INR 1.29 (0.83-1.09) H 05/01/19 07:24 Troponin, BNP 04/30/19 04/30/19 12:45 21:00 Troponin I 0.07 H 0.06 H Troponin, BNP 04/30/19 04/30/19 12:45 21:00 Troponin I 0.07 H 0.06 H Assessment/Plan EKG: sinus, low voltage, old inf infarct no prior CT chest: calcification of coronary arteries, RUL nodule CAD s/p stents, elevated trop - no recent cardiac follow up - trop 0.06 indeterminate range, flat trend - likely demand in setting of osteomyelitis - check echo - cont aspirin, start statin (was not taking in the past, not sure why not) DM foot infection, preop evaluation - plan for debridement of foot today - abx per ID - if benign findings on echo above, no contraindication to debridement smoking - encouraged cessation DM - manage per primary HTN - stable, not on meds
--- NOTE | 2019-05-01 13:22 | PN ---
Progress Note (short form) - Note Progress Note: awaiting surgery no complaints cor-rrr lungs clear abd soft,nt ext foot is the aysha no crepitance noted a/p abscess first toe left foot osteo diabetes surgery to debride the ulcer today vanco/zosyn f/u cultures Problem List - Problems (1) Diabetic infection of left foot Code(s): E11.628 - TYPE 2 DIABETES MELLITUS WITH OTHER SKIN COMPLICATIONS; L08.9 - LOCAL INFECTION OF THE SKIN AND SUBCUTANEOUS TISSUE, UNSP (2) Osteomyelitis Code(s): M86.9 - OSTEOMYELITIS, UNSPECIFIED
--- NOTE | 2019-05-01 13:49 | ECHO ---
Name: BENOIT SHEFFIELD Exam:Adult Echocardiogram Study Date: 05/01/2019 11:55 AM Age: 58 yrs Height: 70 in Weight: 175 lb BSA: 2.0 m2 MMode/2D Measurements & Calculations IVSd: 1.2 cm Ao root diam: 2.8 cm LVIDd: 4.2 cm LA dimension: 4.1 cm LVIDs: 2.8 cm ACS: 1.8 cm LVPWd: 0.93 cm EDV(Teich): 80.0 ml LVOT diam: 1.8 cm ESV(Teich): 29.8 ml RV S Gómez: 9.5 cm/sec Doppler Measurements & Calculations MV E max gómez: 86.9 cm/sec Ao V2 max: 120.9 cm/sec MV A max gómez: 84.4 cm/sec Ao max P.8 mmHg MV E/A: 1.0 Ao V2 mean: 90.5 cm/sec MV dec time: 0.16 sec Ao mean P.4 mmHg Ao V2 VTI: 25.6 cm KIERAN(I,D): 1.9 cm2 KIERAN(V,D): 1.7 cm2 LV V1 max P.5 mmHg MR max gómez: 198.9 cm/sec LV V1 mean P.4 mmHg MR max P.8 mmHg LV V1 max: 79.0 cm/sec LV V1 mean: 57.4 cm/sec LV V1 VTI: 18.4 cm SV(LVOT): 49.2 ml TR max gómez: 181.9 cm/sec TR max P.2 mmHg PA V2 max: 59.2 cm/sec Med Peak E' Gómez: 10.0 cm/sec PA max P.4 mmHg Med E/e': 8.7 Lat Peak E' Gómez: 16.0 cm/sec Lat E/e': 5.4 Procedure A two-dimensional transthoracic echocardiogram with color flow and Doppler was performed. Left Ventricle The left ventricular size, thickness and function are normal. The left ventricular ejection fraction is normal. Left Ventricular Filling pattern is normal for age. The left ventricular wall motion is roxana l. Right Ventricle The right ventricle is normal in size and function. Atria The left atrium is mildly dilated. The right atrium is mildly dilated. Mitral Valve The mitral valve is normal in structure and function. There is no mitral valve stenosis. There is tra ce mitral regurgitation. Tricuspid Valve The tricuspid valve is normal in structure and function. There is no tricuspid stenosis. There is tra ce tricuspid regurgitation. Right ventricular systolic pressure is normal. Aortic Valve The aortic valve is normal in structure and function. No hemodynamically significant valvular aortic stenosis. No aortic regurgitation is present. Pulmonic Valve The pulmonic valve is not well visualized. Great Vessels The aortic root is normal size. Pericardium/Pleura There is no pericardial effusion. Interpretation Summary The left ventricular size, thickness and function are normal The left ventricular ejection fraction is normal. The left ventricular wall motion is normal. The left atrium is mildly dilated. The right atrium is mildly dilated. Left Ventricular Filling pattern is normal for age. There is trace mitral regurgitation. There is trace tricuspid regurgitation. Right ventricular systolic pressure is normal. MD Sinan Turcios 05/01/2019 01:48 PM
[2019-05-01] MEDS ORDERED: ONDANSETRON 4 MG/2 ML VIAL IVPUSH PRN ×4 (13:52→15:45)
[2019-05-01] MEDS ORDERED: LACTATED RINGERS SOLUTION 1,000 ML IV SCH ×2 (14:00→15:45)
[2019-05-01] MEDS ORDERED: LIDOCAINE HCL 2% (20ML MULTI-DOSE VIAL) ONE (14:05)
[2019-05-01] MEDS ORDERED: SUCCINYLCHOLINE CHLORIDE 200 MG/10 ML SYRINGE ONE (14:13)
[2019-05-01] MEDS ORDERED: PROPOFOL 20 ML ONE (14:13)
[2019-05-01] MEDS ORDERED: MIDAZOLAM HCL 2 MG/2 ML SINGLE DOSE VIAL ONE (14:13)
--- NOTE | 2019-05-01 14:14 | PN ---
Progress Note (short form) - Note Progress Note: DISCUSSED CASE AND FINDINGS WITH PATIENT AGAIN AT LENGTH GIVEN EXTENT OF SOFT TISSUE DESTRUCTION WILL PLAN FOR HALLUX AMP AND PATIENT AGREES; WANTS BEST SHOT FOR GETTING INFECTION CLEARED AND NOT TO HAVE TO GO ON IV ABX. FOR AMPUATION TO OR NPO VERIFIED
[2019-05-01] MEDS ORDERED: oxyCODONE HCL 5 MG TABLET PO PRN (15:17)
[2019-05-01] MEDS ORDERED: PROMETHAZINE HCL 25 MG/1 ML VIAL IVPUSH PRN ×2 (15:17→15:45)
--- NOTE | 2019-05-01 15:21 | OP ---
Operative Note - Note: Operative Date: 05/01/19 Pre-Operative Diagnosis: Left foot osteo; abscess Operation: Left hallux amputatoin , I and D Findings: see dictation Post-Operative Diagnosis: Same as Pre-op Surgeon: Amilcar Pratt Anesthesia: Local, MAC Estimated Blood Loss (mls): 5 Operative Report Dictated: Yes
[2019-05-01] MEDS ORDERED: LIDOCAINE HCL 2% (50ML VIAL) INF ONE (15:22)
--- NOTE | 2019-05-01 15:57 | OP ---
DATE OF OPERATION: 05/01/2019 PREOPERATIVE DIAGNOSIS: Left foot hallux osteomyelitis/abscess. POSTOPERATIVE DIAGNOSIS: Left foot hallux osteomyelitis/abscess. PROCEDURE PERFORMED: Left foot hallux amputation with further incision and drainage. SURGEON: Amilcar Pratt DPM ANESTHESIA: Local with IV sedation. INDICATIONS: Patient is a 58-year-old male with the above-mentioned diagnosis. Patient exhausted all forms of conservative treatment at this time and requires immediate surgical interventions for the conditions listed above. After careful explanation of risks, benefits for the procedure, the patient signed the consent form. All questions, concerns were addressed at this time. Prior to taking the patient to the OR, n.p.o. status was verified, and preoperative antibiotics had been given on the floor. DESCRIPTION OF PROCEDURE: Patient brought to the operating room and placed on operative table in supine position. A pneumatic ankle tourniquet was utilized for the patient's left ankle in supramalleolar position at 250 mmHg given patient's good vascular status. At this time following anesthesia, a local injection of 17 mL of 2% lidocaine plain was injected in a local block-type fashion in the left hallux in [facility]. After local anesthetic, the left foot was prepped and draped in normal sterile manner and procedure began. Procedure number 1, left foot incision and drainage and hallux amputation. At this time, attention was directed to the patient's left hallux where there was grossly noted to be a deformed hallux with pruritic draining from the distal tip and the distal aspect of the hallux a roughly 3.5-cm long incision was made starting from the midshaft of the hallux dorsomedially carried distally fish mouthing around the hallux. The incision was then carried deep, and the hallux was exposed. All soft tissue attachments were freed from the base of the proximal phalanx, and the hallux was disarticulated at the 1st metatarsophalangeal joint. It was noted there was a gross amount of soft tissue disturbance. The soft tissue was noted to be in liquefactive present, and there was a gross amount of purulence noted to be draining from the surgical site. This tracked along medially along the 1st metatarsal as well as into the 1st interspace, so with manual decompression and use of a [place] elevator, all sinus tracts were explored, and all purulence was manually decompressed as much as possible. Following this, a pulse lavage was used to fully irrigate the area, 3 L of saline with bacteria mixed in was utilized. Prior to this though, it should be noted that a microbiology sample was taken and sent for cultures to identify bacteria in the wound. Following the pulse lavage, the head of the 1st metatarsal was then resected and passed from the operative field. This will be sent for pathology and microbiology for evaluation of proximal margins of bone to rule out osteomyelitis proximally. At this time, the decision was made given the gross amount of purulence that was in the wound to leave the wound partially open distally, so the wound was 3/[address] with 3-0 Prolene in normal sterile manner and left open distally to allow for draining. The wound was packed with 1/4-inch iodoform packing to allow for any absorption of bleeding and/or further purulent formation. At this time, prognosis is guarded given the fact of destructive nature of the process, and discussion was had with the patient after procedure for possible need to go back down to the OR early next week for a further flush, incision and drainage, and possible closure of the wound. POSTOPERATIVE CONDITION: Patient tolerated anesthesia and procedure well and was transferred to recovery room with vital signs stable, neurovascular status intact to the left foot. This patient will be followed on the floor as previously discussed. JOSÉ JERNIGAN/[id number]
[2019-05-01] MEDS: SODIUM CHLORIDE 1,000 ML IV SCH (16:36)
--- NOTE | 2019-05-01 16:42 | PN ---
Physical Exam: SUBJECTIVE: Patient seen and examined 58 y/o M pmh of DM2 with peripheral neuropathy(diagnosed 25 years ago), CAD( s/ p 5 stents 5-6 years ago), and HTN presents for left hallux pain and swelling over the last 2 weeks admitted for osteomylitis of the toe confirmed on MRI. Pt is well and c/o of only mild pain. Admits to decreased sensation of the toe. Pt is afebrile and symptomatic without any overnight events. Denies f/c/n/v/d/ chest pain. OBJECTIVE: Vital Signs Period Temp Pulse Resp BP Sys/Ohara Pulse Ox Last 24 Hr 97.2 F-99.9 F 68-88 14-20 118-145/60-82 98-100 GENERAL: The patient is awake, alert, and fully oriented, in no acute distress. EYES: PERRL, extraocular movements intact, No ptosis. ENT:oropharynx clear without exudates, moist mucous membranes. NECK: Trachea midline, supple. LUNGS: Breath sounds equal, clear to auscultation bilaterally, no wheezes, no crackles HEART: Regular rate and rhythm, S1, S2 without murmur, rub or gallop. ABDOMEN: Soft, nontender, nondistended, normoactive bowel sounds, no guarding, EXTREMITIES: Right LE: 2+ pulses, warm, well-perfused, no edema. Left LE: erythema, swelling and tenderness beginning mid calf and extends to the first big toe. Great toe appears necrotic and dry, with peeling skin and a small eschar present. Decreased sensation on the toe. NEUROLOGICAL: Normal speech, gait not observed. SKIN: Warm, dry, normal turgor, no rashes or lesions noted Laboratory Results - last 24 hr CBC,CMP WBC 11.4 K/mm3 (4.0-10.0) H 05/01/19 07:24 RBC 3.95 M/mm3 (4.00-5.60) L 05/01/19 07:24 Hgb 10.5 GM/dL (11.7-16.9) L 05/01/19 07:24 Hct 31.7 % (35.4-49) L D 05/01/19 07:24 MCV 80.4 fl (80-96) 05/01/19 07:24 MCH 26.7 pg (25.7-33.7) 05/01/19 07:24 MCHC 33.2 g/dl (32.0-35.9) 05/01/19 07:24 RDW 12.6 % (11.9-15.9) 05/01/19 07:24 Plt Count 347 K/MM3 (134-434) 05/01/19 07:24 MPV 8.2 fl (7.5-11.1) 05/01/19 07:24 Absolute Neuts (auto) 8.5 K/mm3 (1.5-8.0) H 05/01/19 07:24 Neutrophils % 74.9 % (42.8-82.8) 05/01/19 07:24 Lymphocytes % 11.1 % (8-40) D 05/01/19 07:24 Monocytes % 12.1 % (3.8-10.2) H 05/01/19 07:24 Eosinophils % 1.3 % (0-4.5) D 05/01/19 07:24 Basophils % 0.6 % (0-2.0) 05/01/19 07:24 Nucleated RBC % 0 % (0-0) 05/01/19 07:24 ESR 72 mm/hr (0-20) H 04/30/19 03:40 Sodium 133 mmol/L (136-145) L 05/01/19 07:24 Potassium 4.5 mmol/L (3.5-5.1) 05/01/19 07:24 Chloride 101 mmol/L (98-107) 05/01/19 07:24 Carbon Dioxide 26 mmol/L (21-32) 05/01/19 07:24 Anion Gap 6 MMOL/L (8-16) L 05/01/19 07:24 BUN 12.1 mg/dL (7-18) 05/01/19 07:24 Creatinine 0.9 mg/dL (0.55-1.3) 05/01/19 07:24 Est GFR (CKD-EPI)AfAm 110.27 05/01/19 07:24 Est GFR (CKD-EPI)NonAf 95.14 05/01/19 07:24 POC Glucometer 173 UNITS (80-120) 05/01/19 11:06 Random Glucose 175 mg/dL (74-106) H 05/01/19 07:24 Hemoglobin A1c % 12.1 % (4.2-6.3) H 04/30/19 03:40 Lactic Acid 1.2 mmol/L (0.4-2.0) 04/30/19 08:37 Calcium 7.9 mg/dL (8.5-10.1) L 05/01/19 07:24 Phosphorus 2.3 mg/dL (2.5-4.9) L 05/01/19 07:24 Magnesium 1.8 mg/dL (1.8-2.4) 05/01/19 07:24 Total Bilirubin 0.5 mg/dL (0.2-1) 05/01/19 07:24 AST 10 U/L (15-37) L 05/01/19 07:24 ALT 15 U/L (13-61) 05/01/19 07:24 Alkaline Phosphatase 61 U/L (45-117) 05/01/19 07:24 Troponin I 0.06 ng/ml (0.00-0.05) H 04/30/19 21:00 C-Reactive Protein 11.8 MG/DL (0.00-0.3) H 04/30/19 03:40 Total Protein 6.2 g/dl (6.4-8.2) L 05/01/19 07:24 Albumin 2.2 g/dl (3.4-5.0) L 05/01/19 07:24 Active Medications Current Medications Aspirin (Asa -) 81 mg PO DAILY [facility] Atorvastatin Calcium (Lipitor -) 40 mg PO HS [facility] Fentanyl (Sublimaze Injection -) 50 mcg IVPUSH Q5M PRN PRN Reason: PAIN-PACU ORDER X 4 DOSES ONLY Fentanyl (Sublimaze Injection -) 50 mcg IVPUSH Q5M PRN PRN Reason: PAIN-PACU ORDER X 4 DOSES ONLY Heparin Sodium (Porcine) (Heparin -) 5,000 unit SQ TID [facility] Sodium Chloride (Normal Saline -) 1,000 mls @ 100 mls/hr IV ASDIR [facility] Vancomycin HCl 1,250 mg/ (Dextrose) 250 mls @ 166.667 mls/hr IVPB Q12H [facility]; Protocol Piperacillin Sod/Tazobactam (Sod 4.5 gm/ Dextrose) 100 mls @ 200 mls/hr IVPB Q8H-IV [facility]; Protocol Insulin Aspart (Novolog Vial Sliding Scale -) 1 vial SQ ACHS [facility]; Protocol Insulin Aspart (Novolog Vial) 14 units SQ ACBK [facility] Morphine Sulfate (Morphine Sulfate) 2 mg IVPUSH Q4H PRN PRN Reason: PAIN LEVEL 4 - 6 Nicotine (Nicoderm Patch -) 7 mg TD DAILY [facility] Ondansetron HCl (Zofran Injection) 4 mg IVPUSH Q6H PRN PRN Reason: NAUSEA AND/OR VOMITING Oxycodone HCl (Roxicodone -) 10 mg PO Q4H PRN PRN Reason: PAIN LEVEL 6-10 Stop: 05/02/19 15:16 Promethazine HCl (Phenergan Injection -) 12.5 mg IVPUSH Q6H PRN PRN Reason: NAUSEA-FOR RESCUE AFTER 15 MIN Home Medications Medication Instructions Recorded Aspirin [ASA -] 81 mg PO DAILY 04/30/19 Insulin Regular [NOVOLIN R VIAL 14 unit SQ DAILY 04/30/19 *IVPUSH / ER / ICU Only*] Microbiology 04/30/19 12:00 Urine - Urine Clean Catch Urine Culture - Preliminary Group D Strep Or Entero Coccus 04/30/19 03:40 Blood - Peripheral Venous Blood Culture - Preliminary NO GROWTH OBTAINED AFTER 24 HOURS, INCUBATION TO CONTINUE FOR 4 DAYS. 04/30/19 03:40 Blood - Peripheral Venous Blood Culture - Preliminary NO GROWTH OBTAINED AFTER 24 HOURS, INCUBATION TO CONTINUE FOR 4 DAYS. ASSESSMENT/PLAN: 58 y/o M pmh of DM2 with peripheral neuropathy(diagnosed 25 years ago), CAD( s/ p 5 stents 5-6 years ago), and HTN presents for left hallux pain and swelling over the last 2 weeks admitted for osteomylitis of the toe confirmed on MRI #Osteomylelitis of the left Hallux MRI confirmed osteomylelitis ID recommended clindamycin one dose but then d/nicole On zosyn and vanc Podiatry consulted- will perform amputation of the toe, pt agrees. Cardiology cleared pt for OR if echo comes back negative ECHO- normal findings, no acute pathology seen Pt is undergoing procedure. Oxycodone for pain #CAD s/p PCI Started on ASA and atorvastatin 40 #DM Maintain on Insulin sliding scale. Cardiology consulted- pending #RUL Granuloma seen on imaging TB exposure unclear- likely due to travel from [place] Pulm eval as out-patient. DVT Ppx Heparin SQ FEN IVF @ 100 monitor lytes Diabetic diet Dispo: f/u s/p surgery, cont abx, discuss with podiatry for likely d/c Visit type - Emergency Visit Emergency Visit: Yes ED Registration Date: 04/30/19 Care time: The patient presented to the Emergency Department on the above date and was hospitalized for further evaluation of their emergent condition. - New Patient This patient is new to me today: Yes Date on this admission: 05/02/19 - Critical Care Critical Care patient: No - Discharge Referral Referred to [facility] No ATTENDING PHYSICIAN STATEMENT I saw and evaluated the patient. I reviewed the resident's note and discussed the case with the resident. I agree with the resident's findings and plan as documented. SUBJECTIVE: OBJECTIVE: ASSESSMENT AND PLAN:
--- NOTE | 2019-05-01 17:20 | PN ---
Teaching Attending Note Name of Resident: Omer Beach ATTENDING PHYSICIAN STATEMENT I saw and evaluated the patient. I reviewed the resident's note and discussed the case with the resident. I agree with the resident's findings and plan as documented. SUBJECTIVE: Complains of ongoing discomfort L great toe, extending up foot. OBJECTIVE: Low grade fever resolved. Hemodynamically stable. Last Vital Signs Temp Pulse Resp BP Pulse Ox 97.2 F L 68 14 139/72 99 05/01/19 15:58 05/01/19 15:58 05/01/19 15:58 05/01/19 15:58 05/01/19 15:58 Heart - S1, S2, RRR Lungs - clear to auscultation Abdomen - Soft, non-tender. Bowel Sounds normal. Extremities - L foot swelling extending usp up ruffin. Ulcer on tip of L great toe with cutaneous destruction and some drainage. No evidence of subcutaneous air in foot clinically. Neuro - AAO x 3. Tone/Power normal all extremities. Laboratory Results - last 24 hr 04/30/19 04/30/19 04/30/19 03:40 17:52 21:00 WBC RBC Hgb Hct MCV MCH MCHC RDW Plt Count MPV Absolute Neuts (auto) Neutrophils % Lymphocytes % Monocytes % Eosinophils % Basophils % Nucleated RBC % PT with INR INR Sodium Potassium Chloride Carbon Dioxide Anion Gap BUN Creatinine Est GFR (CKD-EPI)AfAm Est GFR (CKD-EPI)NonAf POC Glucometer 251 Random Glucose Hemoglobin A1c % 12.1 H Calcium Phosphorus Magnesium Total Bilirubin AST ALT Alkaline Phosphatase Troponin I 0.06 H Total Protein Albumin U Random Total Protein Urine Creatinine Protein/Creatinin Ratio 04/30/19 05/01/19 05/01/19 21:40 06:04 06:07 WBC RBC Hgb Hct MCV MCH MCHC RDW Plt Count MPV Absolute Neuts (auto) Neutrophils % Lymphocytes % Monocytes % Eosinophils % Basophils % Nucleated RBC % PT with INR INR Sodium Potassium Chloride Carbon Dioxide Anion Gap BUN Creatinine Est GFR (CKD-EPI)AfAm Est GFR (CKD-EPI)NonAf POC Glucometer 259 142 398 Random Glucose Hemoglobin A1c % Calcium Phosphorus Magnesium Total Bilirubin AST ALT Alkaline Phosphatase Troponin I Total Protein Albumin U Random Total Protein Urine Creatinine Protein/Creatinin Ratio 05/01/19 05/01/19 05/01/19 06:24 07:24 07:24 WBC 11.4 H RBC 3.95 L Hgb 10.5 L Hct 31.7 L D MCV 80.4 MCH 26.7 MCHC 33.2 RDW 12.6 Plt Count 347 MPV 8.2 Absolute Neuts (auto) 8.5 H Neutrophils % 74.9 Lymphocytes % 11.1 D Monocytes % 12.1 H Eosinophils % 1.3 D Basophils % 0.6 Nucleated RBC % 0 PT with INR 15.30 H INR 1.29 H Sodium Potassium Chloride Carbon Dioxide Anion Gap BUN Creatinine Est GFR (CKD-EPI)AfAm Est GFR (CKD-EPI)NonAf POC Glucometer Random Glucose Hemoglobin A1c % Calcium Phosphorus Magnesium Total Bilirubin AST ALT Alkaline Phosphatase Troponin I Total Protein Albumin U Random Total Protein 34.4 H Urine Creatinine 86.0 Protein/Creatinin Ratio 0.4 05/01/19 05/01/19 05/01/19 07:24 11:06 16:32 WBC RBC Hgb Hct MCV MCH MCHC RDW Plt Count MPV Absolute Neuts (auto) Neutrophils % Lymphocytes % Monocytes % Eosinophils % Basophils % Nucleated RBC % PT with INR INR Sodium 133 L Potassium 4.5 Chloride 101 Carbon Dioxide 26 Anion Gap 6 L BUN 12.1 Creatinine 0.9 Est GFR (CKD-EPI)AfAm 110.27 Est GFR (CKD-EPI)NonAf 95.14 POC Glucometer 173 149 Random Glucose 175 H Hemoglobin A1c % Calcium 7.9 L Phosphorus 2.3 L Magnesium 1.8 Total Bilirubin 0.5 AST 10 L ALT 15 Alkaline Phosphatase 61 Troponin I Total Protein 6.2 L Albumin 2.2 L U Random Total Protein Urine Creatinine Protein/Creatinin Ratio Current Medications Generic Name Dose Route Start Last Admin Trade Name Freq PRN Reason Stop Dose Admin Aspirin 81 mg 05/02/19 10:00 Asa - PO DAILY [facility] Atorvastatin Calcium 40 mg 05/01/19 22:00 Lipitor - PO HS DORIAN Fentanyl 50 mcg 05/01/19 15:45 Sublimaze Injection - IVPUSH Q5M PRN PAIN-PACU ORDER X 4 DOSES ONLY Fentanyl 50 mcg 05/01/19 15:45 Sublimaze Injection - IVPUSH Q5M PRN PAIN-PACU ORDER X 4 DOSES ONLY Heparin Sodium (Porcine) 5,000 unit 05/01/19 22:00 Heparin - SQ TID [facility] Sodium Chloride 1,000 mls @ 100 mls/hr 05/01/19 15:45 05/01/19 16:36 Normal Saline - IV 100 mls/hr ASDIR DORIAN Administration Vancomycin HCl 1,250 mg/ 250 mls @ 166.667 mls/hr 05/01/19 19:00 Dextrose IVPB Q12H [facility] Protocol Piperacillin Sod/Tazobactam 100 mls @ 200 mls/hr 05/01/19 18:00 Sod 4.5 gm/ Dextrose IVPB Q8H-IV [facility] Protocol Insulin Aspart 1 vial 05/01/19 16:30 05/01/19 16:33 Novolog Vial Sliding Scale - SQ Not Given ACHS [facility] Protocol Insulin Aspart 14 units 05/02/19 07:00 Novolog Vial SQ ACBK [facility] Morphine Sulfate 2 mg 05/01/19 15:45 Morphine Sulfate IVPUSH Q4H PRN PAIN LEVEL 4 - 6 Nicotine 7 mg 05/02/19 10:00 Nicoderm Patch - TD DAILY [facility] Ondansetron HCl 4 mg 05/01/19 15:45 Zofran Injection IVPUSH Q6H PRN NAUSEA AND/OR VOMITING Oxycodone HCl 10 mg 05/01/19 15:45 Roxicodone - PO 05/02/19 15:16 Q4H PRN PAIN LEVEL 6-10 Promethazine HCl 12.5 mg 05/01/19 15:45 Phenergan Injection - IVPUSH Q6H PRN NAUSEA-FOR RESCUE AFTER 15 MIN Home Medications Medication Instructions Recorded Aspirin [ASA -] 81 mg PO DAILY 04/30/19 Insulin Regular [NOVOLIN R VIAL 14 unit SQ DAILY 04/30/19 *IVPUSH / ER / ICU Only*] ASSESSMENT AND PLAN: 58 year old male with DM2 with peripheral neuropathy, CAD (s/p 5 stents 5-6 years ago), and HTN presents with pain/swelling/tenderness L great toe with associated fever/chills after traumatic injury/puncture 2 weeks ago. 1. Acute Osteomyelitis L Great Toe with Cellulitis Xray L foot - findings suggestive of OM distal phalynx MRI - soft tissue swelling 1st toe and bone marrow edema consistent with OM. Wound Cx pending. Blood Cx negative. ID and Podiatry following. Scheduled for toe amputation today. Continue Zosyn/Vanco 2. DM 2, uncontrolled. A1C 12.8 Maintain on Insulin sliding scale. 3. CAD s/p PCI/Stent x 5 Continue Aspirin. Not on Statin, reason unclear. Mild flat elevation in Troponins. Cardiology eval for optimization of medications - recommend Echo and starting Statin. 4. 6mm calcified RUL granuloma, unclear past TB exposure. No active pulmonary disease currently. For Pulm eval as out-patient. 5. Hypophosphatemia - repleted. DVT Px - Heparin SQ
[2019-05-01] MEDS ORDERED: HEPARIN NA (PORCINE) 5,000 UNITS/ML 1ML VIAL SQ SCH (18:00)
[2019-05-01] MEDS: oxyCODONE HCL 5 MG TABLET PO PRN (18:11)
[2019-05-01] MEDS: ATORVASTATIN CA 40 MG TABLET (FP) PO SCH (21:20)
[2019-05-01] MEDS: MORPHINE SULFATE 2 MG/ML VIAL IVPUSH PRN (21:34)
[2019-05-01] MEDS ORDERED: ATORVASTATIN CA 40 MG TABLET (FP) PO SCH (22:00)
[2019-05-02] MEDS ORDERED: PIPERACILLIN/TAZOBACTAM 4.5 GM VIAL IVPB ONE ×5 (01:52→18:01)
[2019-05-02] MEDS ORDERED: DEXTROSE 5%-WATER 100 ML IVPB ONE ×5 (01:52→18:01)
[2019-05-02] MEDS: PIPERACILLIN/TAZOB 4.5 GM 4.5 GM in DEXTROSE 5%-WATER 100 ML IVPB SCH ×3 (02:06→18:10)
[2019-05-02] MEDS: oxyCODONE HCL 5 MG TABLET PO PRN (02:07)
[2019-05-02] MEDS ORDERED: PT OWN MED DRAWER 7, Y5N ONE ×4 (05:24→22:18)
[2019-05-02] MEDS: HEPARIN NA (PORCINE) 5,000 UNITS/ML 1ML VIAL SQ SCH ×3 (05:46→22:53)
[2019-05-02] MEDS: INSULIN (NOVOLOG) ASPART 100 UNITS/ML 10ML VIAL SQ SCH (06:05)
[2019-05-02] MEDS: INSULIN SLIDING SCALE (NOVOLOG) 1 VIAL SQ SCH ×4 (06:06→23:00)
[2019-05-02] MEDS: VANCOMYCIN 1,250 MG in DEXTROSE 5%-WATER - 250 ML IVPB SCH ×2 (06:06→20:00)
[2019-05-02 07:37] LABS: HEMATOCRIT 30.8 % (35.4-49); HEMOGLOBIN 10.1 GM/dL (11.7-16.9); MCH 26.5 pg (25.7-33.7); MCHC 32.8 g/dl (32.0-35.9); MEAN CELL VOLUME 80.7 fl (80-96); PLATELET COUNT 363 K/MM3 (134-434); RBC 3.82 M/mm3 (4.00-5.60); RDW 12.4 % (11.9-15.9); WHITE BLOOD COUNT 11.2 K/mm3 (4.0-10.0)
[2019-05-02 08:12] LABS: BILIRUBIN,TOTAL 0.5 mg/dL (0.2-1); BLOOD UREA NITROGEN 9.9 mg/dL (7-18); CALCIUM 7.8 mg/dL (8.5-10.1); POTASSIUM 3.9 mmol/L (3.5-5.1)
[2019-05-02] MEDS: NICOTINE 7 MG/24 HOURS TOPICAL PATCH TD SCH (09:24)
[2019-05-02] MEDS: ASPIRIN 81 MG CHEWABLE TABLETS PO SCH (09:24)
--- NOTE | 2019-05-02 09:57 | PN ---
Progress Note (short form) - Note Progress Note: Podiatry F/U: Seen/evaluated at bedside NAD. Denies F/V/N/C/SOB/CP. Low grade temp, currently afebrile. Notes pain is controlled to the left foot with PO medication. S/p left hallux amputation for diabetic infection and osteomyelitis POD#1. MANOLO: L foot: Dressing clean, dry, intact; no active bleeding, no bandage strikethrough. Pedal pulses 2/4, TG wnl. Sutures are well coapted, packing in place. There is no postoperative dehiscence noted, no purulent drainage, no fluctuance, no soft tissue crepitus, no streaking cellulitis, no signs of acute infection. There is some slough distally at the packing site. Mild tenderness to palpation. OR Cx: pending Imp: 58 year old poorly controlled diabetic male s/p left hallux amputation POD# 1 1. IV abx per infectious disease 2. Packing removed, DSD L foot placed 3. Physical therapy: partial WB left heel with surgical shoe 4. F/u OR cultures 5. Will follow Chet Weiss DPM
[2019-05-02] MEDS ORDERED: INSULIN REGULAR SQ SCH (10:00)
--- NOTE | 2019-05-02 15:31 | PN ---
Physical Exam: SUBJECTIVE: Patient seen and examined. Pt is afebrile and asymptomatic. Pt states he has mild pain but otherwise he is doing well. Denies f/c/n/v/d/sob/ chest pain. OBJECTIVE: Vital Signs Period Temp Pulse Resp BP Sys/Ohara Pulse Ox Last 24 Hr 97.2 F-99.6 F 68-83 14-20 113-145/59-82 99-100 GENERAL: The patient is awake, alert, and fully oriented, in no acute distress. EYES: PERRL, extraocular movements intact, No ptosis. ENT:oropharynx clear without exudates, moist mucous membranes. NECK: Trachea midline, supple. LUNGS: Breath sounds equal, clear to auscultation bilaterally, no wheezes, no crackles HEART: Regular rate and rhythm, S1, S2 without murmur, rub or gallop. ABDOMEN: Soft, nontender, nondistended, normoactive bowel sounds, no guarding, EXTREMITIES: Right LE: 2+ pulses, warm, well-perfused, no edema. Left LE: Foot is wrapped, POD2, LE is still erythematous and tender NEUROLOGICAL: Normal speech, gait not observed. SKIN: Warm, dry, normal turgor, no rashes or lesions noted Laboratory Results - last 24 hr CBC,CMP WBC 11.2 K/mm3 (4.0-10.0) H 05/02/19 07:00 RBC 3.82 M/mm3 (4.00-5.60) L 05/02/19 07:00 Hgb 10.1 GM/dL (11.7-16.9) L 05/02/19 07:00 Hct 30.8 % (35.4-49) L 05/02/19 07:00 MCV 80.7 fl (80-96) 05/02/19 07:00 MCH 26.5 pg (25.7-33.7) 05/02/19 07:00 MCHC 32.8 g/dl (32.0-35.9) 05/02/19 07:00 RDW 12.4 % (11.9-15.9) 05/02/19 07:00 Plt Count 363 K/MM3 (134-434) 05/02/19 07:00 MPV 8.0 fl (7.5-11.1) 05/02/19 07:00 Absolute Neuts (auto) 8.5 K/mm3 (1.5-8.0) H 05/01/19 07:24 Neutrophils % 74.9 % (42.8-82.8) 05/01/19 07:24 Lymphocytes % 11.1 % (8-40) D 05/01/19 07:24 Monocytes % 12.1 % (3.8-10.2) H 05/01/19 07:24 Eosinophils % 1.3 % (0-4.5) D 05/01/19 07:24 Basophils % 0.6 % (0-2.0) 05/01/19 07:24 Nucleated RBC % 0 % (0-0) 05/01/19 07:24 ESR 72 mm/hr (0-20) H 04/30/19 03:40 Sodium 132 mmol/L (136-145) L 05/02/19 07:00 Potassium 3.9 mmol/L (3.5-5.1) 05/02/19 07:00 Chloride 100 mmol/L (98-107) 05/02/19 07:00 Carbon Dioxide 27 mmol/L (21-32) 05/02/19 07:00 Anion Gap 5 MMOL/L (8-16) L 05/02/19 07:00 BUN 9.9 mg/dL (7-18) 05/02/19 07:00 Creatinine 1.0 mg/dL (0.55-1.3) 05/02/19 07:00 Est GFR (CKD-EPI)AfAm 97.08 05/02/19 07:00 Est GFR (CKD-EPI)NonAf 83.76 05/02/19 07:00 POC Glucometer 208 UNITS (80-120) 05/02/19 13:05 Random Glucose 161 mg/dL (74-106) H 05/02/19 07:00 Hemoglobin A1c % 12.1 % (4.2-6.3) H 04/30/19 03:40 Lactic Acid 1.2 mmol/L (0.4-2.0) 04/30/19 08:37 Calcium 7.8 mg/dL (8.5-10.1) L 05/02/19 07:00 Phosphorus 2.3 mg/dL (2.5-4.9) L 05/01/19 07:24 Magnesium 2.0 mg/dL (1.8-2.4) 05/02/19 07:00 Total Bilirubin 0.5 mg/dL (0.2-1) 05/02/19 07:00 AST 9 U/L (15-37) L 05/02/19 07:00 ALT 13 U/L (13-61) 05/02/19 07:00 Alkaline Phosphatase 60 U/L (45-117) 05/02/19 07:00 Troponin I 0.06 ng/ml (0.00-0.05) H 04/30/19 21:00 C-Reactive Protein 11.8 MG/DL (0.00-0.3) H 04/30/19 03:40 Total Protein 6.0 g/dl (6.4-8.2) L 05/02/19 07:00 Albumin 2.0 g/dl (3.4-5.0) L 05/02/19 07:00 Active Medications Current Medications Aspirin (Asa -) 81 mg PO DAILY [facility] Last Admin: 05/02/19 09:24 Dose: 81 mg Atorvastatin Calcium (Lipitor -) 40 mg PO HS [facility] Last Admin: 05/01/19 21:20 Dose: 40 mg Fentanyl (Sublimaze Injection -) 50 mcg IVPUSH Q5M PRN PRN Reason: PAIN-PACU ORDER X 4 DOSES ONLY Fentanyl (Sublimaze Injection -) 50 mcg IVPUSH Q5M PRN PRN Reason: PAIN-PACU ORDER X 4 DOSES ONLY Heparin Sodium (Porcine) (Heparin -) 5,000 unit SQ TID [facility] Last Admin: 05/02/19 14:56 Dose: 5,000 unit Sodium Chloride (Normal Saline -) 1,000 mls @ 100 mls/hr IV ASDIR [facility] Last Admin: 05/01/19 16:36 Dose: 100 mls/hr Vancomycin HCl 1,250 mg/ (Dextrose) 250 mls @ 166.667 mls/hr IVPB Q12H [facility]; Protocol Last Admin: 05/02/19 06:06 Dose: 166.667 mls/hr Piperacillin Sod/Tazobactam (Sod 4.5 gm/ Dextrose) 100 mls @ 200 mls/hr IVPB Q8H-IV [facility]; Protocol Last Admin: 05/02/19 09:23 Dose: 200 mls/hr Insulin Aspart (Novolog Vial Sliding Scale -) 1 vial SQ ACHS [facility]; Protocol Last Admin: 05/02/19 13:16 Dose: 4 units Insulin Aspart (Novolog Vial) 14 units SQ ACBK [facility] Last Admin: 05/02/19 06:05 Dose: 14 units Morphine Sulfate (Morphine Sulfate) 2 mg IVPUSH Q4H PRN PRN Reason: PAIN LEVEL 4 - 6 Last Admin: 05/01/19 21:34 Dose: 2 mg Nicotine (Nicoderm Patch -) 7 mg TD DAILY [facility] Last Admin: 05/02/19 09:24 Dose: 7 mg Ondansetron HCl (Zofran Injection) 4 mg IVPUSH Q6H PRN PRN Reason: NAUSEA AND/OR VOMITING Promethazine HCl (Phenergan Injection -) 12.5 mg IVPUSH Q6H PRN PRN Reason: NAUSEA-FOR RESCUE AFTER 15 MIN Home Medications Medication Instructions Recorded Aspirin [ASA -] 81 mg PO DAILY 04/30/19 Insulin Regular [NOVOLIN R VIAL 14 unit SQ DAILY 04/30/19 *IVPUSH / ER / ICU Only*] Microbiology 04/30/19 12:00 Urine - Urine Clean Catch Urine Culture - Final Enterococcus Faecalis 04/30/19 03:40 Blood - Peripheral Venous Blood Culture - Preliminary NO GROWTH OBTAINED AFTER 48 HOURS, INCUBATION TO CONTINUE FOR 3 DAYS. 04/30/19 03:40 Blood - Peripheral Venous Blood Culture - Preliminary NO GROWTH OBTAINED AFTER 48 HOURS, INCUBATION TO CONTINUE FOR 3 DAYS. ASSESSMENT/PLAN: 58 y/o M pmh of DM2 with peripheral neuropathy(diagnosed 25 years ago), CAD( s/ p 5 stents 5-6 years ago), and HTN presents for left hallux pain and swelling over the last 2 weeks admitted for osteomylitis of the toe confirmed on MRI #Osteomylelitis of the left Hallux POD2 MRI confirmed osteomylelitis On zosyn and vanc Discussed with Dr. Pratt, who stated that the leg appeared worse during surgery than on radiological report, containing sinus tracts that extended up the LE. Will require pt to be monitored and might need a second look and wash out. Pending Pathology report for bx of the toe- pathology lab states likely monday for the result. Oxycodone for pain Fentanyl 50 mcg Zofran Promethazine Will need Physical therapy- partial WB left heel with surgical shoe #CAD s/p PCI Started on ASA and atorvastatin 40 #DM Maintain on Insulin sliding scale. Cardiology consulted- pending #RUL Granuloma seen on imaging TB exposure unclear- likely due to travel from [facility] as out-patient. DVT Ppx Heparin SQ FEN IVF @ 100 monitor lytes Diabetic diet Dispo: f/u s/p surgery, cont abx, discuss with podiatry for likely d/c Visit type - Emergency Visit Emergency Visit: Yes ED Registration Date: 04/30/19 Care time: The patient presented to the Emergency Department on the above date and was hospitalized for further evaluation of their emergent condition. - New Patient This patient is new to me today: Yes Date on this admission: 05/04/19 - Critical Care Critical Care patient: No - Discharge Referral Referred to [facility] No ATTENDING PHYSICIAN STATEMENT I saw and evaluated the patient. I reviewed the resident's note and discussed the case with the resident. I agree with the resident's findings and plan as documented. SUBJECTIVE: OBJECTIVE: ASSESSMENT AND PLAN:
--- NOTE | 2019-05-02 16:15 | PN ---
Teaching Attending Note Name of Resident: Omer Beach ATTENDING PHYSICIAN STATEMENT I saw and evaluated the patient. I reviewed the resident's note and discussed the case with the resident. I agree with the resident's findings and plan as documented. SUBJECTIVE: Complains of some ongoing discomfort L great toe surgical site, well controlled. POD 1 s/p L great toe amputation and I&D. OBJECTIVE: Low grade fever resolved. Hemodynamically stable. Last Vital Signs Temp Pulse Resp BP Pulse Ox 98.4 F 76 18 116/59 L 99 05/02/19 14:00 05/02/19 14:00 05/02/19 14:00 05/02/19 14:00 05/02/19 09:00 Heart - S1, S2, RRR Lungs - clear to auscultation Abdomen - Soft, non-tender. Bowel Sounds normal. Extremities - L foot swelling extending residential up ruffin. Surgical L great toe amputation site dressed. Neuro - AAO x 3. Tone/Power normal all extremities. Laboratory Results - last 24 hr 05/01/19 05/01/19 05/02/19 16:32 21:19 05:43 WBC RBC Hgb Hct MCV MCH MCHC RDW Plt Count MPV Sodium Potassium Chloride Carbon Dioxide Anion Gap BUN Creatinine Est GFR (CKD-EPI)AfAm Est GFR (CKD-EPI)NonAf POC Glucometer 149 335 152 Random Glucose Calcium Magnesium Total Bilirubin AST ALT Alkaline Phosphatase Total Protein Albumin 05/02/19 05/02/19 05/02/19 07:00 07:00 13:05 WBC 11.2 H RBC 3.82 L Hgb 10.1 L Hct 30.8 L MCV 80.7 MCH 26.5 MCHC 32.8 RDW 12.4 Plt Count 363 MPV 8.0 Sodium 132 L Potassium 3.9 Chloride 100 Carbon Dioxide 27 Anion Gap 5 L BUN 9.9 Creatinine 1.0 Est GFR (CKD-EPI)AfAm 97.08 Est GFR (CKD-EPI)NonAf 83.76 POC Glucometer 208 Random Glucose 161 H Calcium 7.8 L Magnesium 2.0 Total Bilirubin 0.5 AST 9 L ALT 13 Alkaline Phosphatase 60 Total Protein 6.0 L Albumin 2.0 L Current Medications Generic Name Dose Route Start Last Admin Trade Name Freq PRN Reason Stop Dose Admin Aspirin 81 mg 05/02/19 10:00 05/02/19 09:24 Asa - PO 81 mg DAILY [facility] Administration Atorvastatin Calcium 40 mg 05/01/19 22:00 05/01/19 21:20 Lipitor - PO 40 mg HS [facility] Administration Fentanyl 50 mcg 05/01/19 15:45 Sublimaze Injection - IVPUSH Q5M PRN PAIN-PACU ORDER X 4 DOSES ONLY Fentanyl 50 mcg 05/01/19 15:45 Sublimaze Injection - IVPUSH Q5M PRN PAIN-PACU ORDER X 4 DOSES ONLY Heparin Sodium (Porcine) 5,000 unit 05/01/19 22:00 05/02/19 14:56 Heparin - SQ 5,000 unit TID [facility] Administration Sodium Chloride 1,000 mls @ 100 mls/hr 05/01/19 15:45 05/01/19 16:36 Normal Saline - IV 100 mls/hr ASDIR [facility] Administration Vancomycin HCl 1,250 mg/ 250 mls @ 166.667 mls/hr 05/01/19 19:00 05/02/19 06: 06 Dextrose IVPB 166.667 mls/hr Q12H [facility] Administration Protocol Piperacillin Sod/Tazobactam 100 mls @ 200 mls/hr 05/01/19 18:00 05/02/19 09: 23 Sod 4.5 gm/ Dextrose IVPB 200 mls/hr Q8H-IV [facility] Administration Protocol Insulin Aspart 1 vial 05/01/19 16:30 05/02/19 13:16 Novolog Vial Sliding Scale - SQ 4 units ACHS [facility] Administration Protocol Insulin Aspart 14 units 05/02/19 07:00 05/02/19 06:05 Novolog Vial SQ 14 units ACBK [facility] Administration Morphine Sulfate 2 mg 05/01/19 15:45 05/01/19 21:34 Morphine Sulfate IVPUSH 2 mg Q4H PRN Administration PAIN LEVEL 4 - 6 Nicotine 7 mg 05/02/19 10:00 05/02/19 09:24 Nicoderm Patch - TD 7 mg DAILY [facility] Administration Ondansetron HCl 4 mg 05/01/19 15:45 Zofran Injection IVPUSH Q6H PRN NAUSEA AND/OR VOMITING Promethazine HCl 12.5 mg 05/01/19 15:45 Phenergan Injection - IVPUSH Q6H PRN NAUSEA-FOR RESCUE AFTER 15 MIN Home Medications Medication Instructions Recorded Aspirin [ASA -] 81 mg PO DAILY 04/30/19 Insulin Regular [NOVOLIN R VIAL 14 unit SQ DAILY 04/30/19 *IVPUSH / ER / ICU Only*] ASSESSMENT AND PLAN: 58 year old male with DM2 with peripheral neuropathy, CAD (s/p 5 stents 5-6 years ago), and HTN presents with pain/swelling/tenderness L great toe with associated fever/chills after traumatic injury/puncture 2 weeks ago. 1. Acute Osteomyelitis L Great Toe with Cellulitis - POD 1 s/p L great toe amputation/I and D Xray L foot - findings suggestive of OM distal phalynx MRI - soft tissue swelling 1st toe and bone marrow edema consistent with OM. Surgical Cultures pending. Blood Cx negative. Follow surgical pathology. Continue Zosyn/Vanco ID and Podiatry following - dressings and assessment for further intervention as per Podiatry. PT 2. DM 2, uncontrolled. A1C 12.8 Maintain on Insulin sliding scale. 3. CAD s/p PCI/Stent x 5 Continue Aspirin. Not on Statin, reason unclear. Mild flat elevation in Troponins. Echo - normal EF Evaluated by Cardio - recommend starting Statin. 4. 6mm calcified RUL granuloma, unclear past TB exposure. No active pulmonary disease currently. For Pulm eval as out-patient. 5. Hypophosphatemia - repleted. Repeat level pending. DVT Px - Heparin SQ
--- NOTE | 2019-05-02 16:29 | PN ---
Progress Note (short form) - Note Progress Note: s: no chest pain, palps, dizziness, dyspnea. s/p amputation of L hallux Current Medications Aspirin (Asa -) 81 mg PO DAILY [facility] Last Admin: 05/02/19 09:24 Dose: 81 mg Atorvastatin Calcium (Lipitor -) 40 mg PO HS [facility] Last Admin: 05/01/19 21:20 Dose: 40 mg Fentanyl (Sublimaze Injection -) 50 mcg IVPUSH Q5M PRN PRN Reason: PAIN-PACU ORDER X 4 DOSES ONLY Fentanyl (Sublimaze Injection -) 50 mcg IVPUSH Q5M PRN PRN Reason: PAIN-PACU ORDER X 4 DOSES ONLY Heparin Sodium (Porcine) (Heparin -) 5,000 unit SQ TID [facility] Last Admin: 05/02/19 14:56 Dose: 5,000 unit Sodium Chloride (Normal Saline -) 1,000 mls @ 100 mls/hr IV ASDIR [facility] Last Admin: 05/01/19 16:36 Dose: 100 mls/hr Vancomycin HCl 1,250 mg/ (Dextrose) 250 mls @ 166.667 mls/hr IVPB Q12H [facility]; Protocol Last Admin: 05/02/19 06:06 Dose: 166.667 mls/hr Piperacillin Sod/Tazobactam (Sod 4.5 gm/ Dextrose) 100 mls @ 200 mls/hr IVPB Q8H-IV [facility]; Protocol Last Admin: 05/02/19 09:23 Dose: 200 mls/hr Insulin Aspart (Novolog Vial Sliding Scale -) 1 vial SQ ACHS [facility]; Protocol Last Admin: 05/02/19 13:16 Dose: 4 units Insulin Aspart (Novolog Vial) 14 units SQ ACBK [facility] Last Admin: 05/02/19 06:05 Dose: 14 units Morphine Sulfate (Morphine Sulfate) 2 mg IVPUSH Q4H PRN PRN Reason: PAIN LEVEL 4 - 6 Last Admin: 05/01/19 21:34 Dose: 2 mg Nicotine (Nicoderm Patch -) 7 mg TD DAILY [facility] Last Admin: 05/02/19 09:24 Dose: 7 mg Ondansetron HCl (Zofran Injection) 4 mg IVPUSH Q6H PRN PRN Reason: NAUSEA AND/OR VOMITING Promethazine HCl (Phenergan Injection -) 12.5 mg IVPUSH Q6H PRN PRN Reason: NAUSEA-FOR RESCUE AFTER 15 MIN Vital Signs Period Temp Pulse Resp BP Sys/Ohara Pulse Ox Last 24 Hr 98 F-99.6 F 76-83 18-20 113-144/59-81 99 Constitutional: Yes: Well Nourished, No Distress, Calm Eyes: Yes: Conjunctiva Clear, EOM Intact HENT: Yes: Atraumatic, Normocephalic Neck: Yes: Supple, Trachea Midline Respiratory: Yes: Regular, CTA Bilaterally Gastrointestinal: Yes: Normal Bowel Sounds, Soft Cardiovascular: Yes: Regular Rate and Rhythm JVD: No Heart Sounds: Yes: S1, S2 Edema: No Integumentary: No: Jaundice Neurological: Yes: Alert, Oriented Psychiatric: No: Agitated Assessment/Plan EKG: sinus, low voltage, old inf infarct no prior echo 04/2019 nl LV/RV function, mildly dilated LA/RA, tr MR, tr TR CT chest: calcification of coronary arteries, RUL nodule CAD s/p stents, elevated trop - no recent cardiac follow up - trop 0.06 indeterminate range, flat trend - likely demand in setting of osteomyelitis - echo unremarkable - cont aspirin, started statin DM foot infection, preop evaluation - s/p L hallux amputation, tolerated well - abx per ID smoking - encouraged cessation DM - manage per primary HTN - stable, not on meds
[2019-05-02] MEDS: SODIUM CHLORIDE 1,000 ML IV SCH (18:12)
[2019-05-02] MEDS: MORPHINE SULFATE 2 MG/ML VIAL IVPUSH PRN ×2 (19:30→23:02)
[2019-05-02] MEDS: ATORVASTATIN CA 40 MG TABLET (FP) PO SCH (22:54)
[2019-05-03] MEDS ORDERED: DEXTROSE 5%-WATER 100 ML IVPB ONE ×4 (01:44→17:24)
[2019-05-03] MEDS ORDERED: PIPERACILLIN/TAZOBACTAM 4.5 GM VIAL IVPB ONE ×4 (01:44→17:23)
[2019-05-03] MEDS: PIPERACILLIN/TAZOB 4.5 GM 4.5 GM in DEXTROSE 5%-WATER 100 ML IVPB SCH ×3 (02:15→17:49)
[2019-05-03] MEDS: INSULIN (NOVOLOG) ASPART 100 UNITS/ML 10ML VIAL SQ SCH (06:38)
[2019-05-03] MEDS: HEPARIN NA (PORCINE) 5,000 UNITS/ML 1ML VIAL SQ SCH ×3 (06:38→21:01)
[2019-05-03] MEDS: INSULIN SLIDING SCALE (NOVOLOG) 1 VIAL SQ SCH ×4 (06:38→21:07)
[2019-05-03] MEDS: MORPHINE SULFATE 2 MG/ML VIAL IVPUSH PRN ×2 (06:39→19:41)
[2019-05-03] MEDS ORDERED: INSULIN (NOVOLOG) ASPART 100 UNITS/ML 10ML VIAL ONE ×2 (06:57→17:46)
[2019-05-03] MEDS ORDERED: PT OWN MED DRAWER 7, Y5N ONE ×2 (07:32→10:41)
[2019-05-03] MEDS: VANCOMYCIN 1,250 MG in DEXTROSE 5%-WATER - 250 ML IVPB SCH ×2 (07:37→19:40)
[2019-05-03 08:25] LABS: HEMATOCRIT 34.7 % (35.4-49); HEMOGLOBIN 11.6 GM/dL (11.7-16.9); MCHC 33.5 g/dl (32.0-35.9); MEAN CELL VOLUME 80.7 fl (80-96); MEAN PLT VOLUME 8.1 fl (7.5-11.1); PLATELET COUNT 417 K/MM3 (134-434); RBC 4.31 M/mm3 (4.00-5.60); RDW 12.6 % (11.9-15.9); WHITE BLOOD COUNT 7.7 K/mm3 (4.0-10.0)
[2019-05-03 08:53] LABS: ALBUMIN 2.1 g/dl (3.4-5.0); BILIRUBIN,TOTAL 0.3 mg/dL (0.2-1); BLOOD UREA NITROGEN 10.4 mg/dL (7-18); CALCIUM 8.4 mg/dL (8.5-10.1); CREATININE 1.2 mg/dL (0.55-1.3); POTASSIUM 4.3 mmol/L (3.5-5.1); TOT PROT 6.1 g/dl (6.4-8.2)
[2019-05-03] MEDS: ASPIRIN 81 MG CHEWABLE TABLETS PO SCH (10:58)
[2019-05-03] MEDS: NICOTINE 7 MG/24 HOURS TOPICAL PATCH TD SCH (10:59)
--- NOTE | 2019-05-03 11:55 | PATH ---
Surgical Pathology Report Patient Name: BENOIT SHEFFIELD Med. Rec. #: [id number] /Age/Gender: 1960 (Age: 58) / M Account: [id number] Location: [facility] MED/SURG Taken: 05/01/2019 Received: 05/02/2019 Reported: 05/03/2019 Physicians: Amilcar Pratt DPM Specimen(s) Received A: LEFT GREAT TOE B: LEFT METATARSAL PROXIMAL MARGIN Clinical History Left great toe osteomyelitis Final Diagnosis A. Left great toe, amputation: Gangrenous necrosis with acute osteomyelitis. SKIN AND SOFT TISSUE FROM MARGIN SHOWS GANGRENOUS NECROSIS. BONE FROM PROXIMAL ASPECT FREE OF OSTEOMYELITIS (see Specimen B for final bone margin). B. Bone, left great toe proximal margin, excision: Unremarkable bone and cartilage. No osteomyelitis identified. Electronically Signed Timo Walters M.D. Gross Description A. Received in formalin labeled "left great toe," is an 8.0 x 3.8 x 3.5 cm toe amputation. The distal aspect displays a 3.5 x 3.1 cm ulcerated lesion involving the underlying bone. The lesion appears to focally involve the skin and soft tissue margin. Strip Deburrer sections are submitted in 3 cassettes as follows: 1-lesion with underlying bone, following decalcification; 2-bone margin, following decalcification; 3-skin and soft tissue margin. B. Received in formalin labeled "proximal left great toe margin," is a 1.8 x 1.0 x 0.7 cm castro-yellow, irregular portion of bone which is partially surfaced by articular cartilage at one end. The specimen is serially sectioned and entirely submitted in one cassette, following decalcification. /05/02/2019 [facility]/05/02/2019
--- NOTE | 2019-05-03 14:24 | PN ---
Teaching Attending Note Name of Resident: Omer Beach ATTENDING PHYSICIAN STATEMENT I saw and evaluated the patient. I reviewed the resident's note and discussed the case with the resident. I agree with the resident's findings and plan as documented. SUBJECTIVE: Pain well controlled L great toe surgical site. POD 2 s/p L great toe amputation and I&D. OBJECTIVE: Low grade fever T 99.7 ovenight. Hemodynamically stable. Last Vital Signs Temp Pulse Resp BP Pulse Ox 98.3 F 75 18 133/77 99 05/03/19 11:04 05/03/19 11:04 05/03/19 11:04 05/03/19 11:04 05/03/19 09:00 Heart - S1, S2, RRR Lungs - clear to auscultation Abdomen - Soft, non-tender. Bowel Sounds normal. Extremities - Some improvement in L foot swelling/tenderness. Surgical L great toe amputation site dressed. Neuro - AAO x 3. Tone/Power normal all extremities. Laboratory Results - last 24 hr 05/02/19 05/02/19 05/03/19 17:16 19:00 06:34 WBC RBC Hgb Hct MCV MCH MCHC RDW Plt Count MPV Sodium Potassium Chloride Carbon Dioxide Anion Gap BUN Creatinine Est GFR (CKD-EPI)AfAm Est GFR (CKD-EPI)NonAf POC Glucometer 134 275 Random Glucose Calcium Total Bilirubin AST ALT Alkaline Phosphatase Total Protein Albumin Vancomycin Pre-Dose 13.4 L 05/03/19 05/03/19 05/03/19 07:42 07:42 11:38 WBC 7.7 RBC 4.31 Hgb 11.6 L Hct 34.7 L MCV 80.7 MCH 27.0 MCHC 33.5 RDW 12.6 Plt Count 417 MPV 8.1 Sodium 137 Potassium 4.3 Chloride 106 Carbon Dioxide 28 Anion Gap 4 L BUN 10.4 Creatinine 1.2 Est GFR (CKD-EPI)AfAm 77.88 Est GFR (CKD-EPI)NonAf 67.19 POC Glucometer 158 Random Glucose 206 H Calcium 8.4 L Total Bilirubin 0.3 AST 13 L ALT 14 Alkaline Phosphatase 60 Total Protein 6.1 L Albumin 2.1 L Vancomycin Pre-Dose Current Medications Generic Name Dose Route Start Last Admin Trade Name Freq PRN Reason Stop Dose Admin Aspirin 81 mg 05/02/19 10:00 05/03/19 10:58 Asa - PO 81 mg DAILY [facility]ORIAN Administration Atorvastatin Calcium 40 mg 05/01/19 22:00 05/02/19 22:54 Lipitor - PO 40 mg HS [facility] Administration Fentanyl 50 mcg 05/01/19 15:45 Sublimaze Injection - IVPUSH Q5M PRN PAIN-PACU ORDER X 4 DOSES ONLY Fentanyl 50 mcg 05/01/19 15:45 Sublimaze Injection - IVPUSH Q5M PRN PAIN-PACU ORDER X 4 DOSES ONLY Heparin Sodium (Porcine) 5,000 unit 05/01/19 22:00 05/03/19 06:38 Heparin - SQ 5,000 unit TID DORIAN Administration Sodium Chloride 1,000 mls @ 100 mls/hr 05/01/19 15:45 05/02/19 18:12 Normal Saline - IV 100 mls/hr ASDIR [facility] Administration Vancomycin HCl 1,250 mg/ 250 mls @ 166.667 mls/hr 05/01/19 19:00 05/03/19 07: 37 Dextrose IVPB 166.667 mls/hr Q12H [facility] Administration Protocol Piperacillin Sod/Tazobactam 100 mls @ 200 mls/hr 05/01/19 18:00 05/03/19 10: 58 Sod 4.5 gm/ Dextrose IVPB 200 mls/hr Q8H-IV [facility] Administration Protocol Insulin Aspart 1 vial 05/01/19 16:30 05/03/19 11:48 Novolog Vial Sliding Scale - SQ 2 units ACHS DORIAN Administration Protocol Insulin Aspart 14 units 05/02/19 07:00 05/03/19 06:38 Novolog Vial SQ 14 units ACBK [facility] Administration Morphine Sulfate 2 mg 05/01/19 15:45 05/03/19 06:39 Morphine Sulfate IVPUSH 2 mg Q4H PRN Administration PAIN LEVEL 4 - 6 Nicotine 7 mg 05/02/19 10:00 05/03/19 10:59 Nicoderm Patch - TD 7 mg DAILY [facility] Administration Ondansetron HCl 4 mg 05/01/19 15:45 Zofran Injection IVPUSH Q6H PRN NAUSEA AND/OR VOMITING Promethazine HCl 12.5 mg 05/01/19 15:45 Phenergan Injection - IVPUSH Q6H PRN NAUSEA-FOR RESCUE AFTER 15 MIN Home Medications Medication Instructions Recorded Aspirin [ASA -] 81 mg PO DAILY 04/30/19 Insulin Regular [NOVOLIN R VIAL 14 unit SQ DAILY 04/30/19 *IVPUSH / ER / ICU Only*] ASSESSMENT AND PLAN: 58 year old male with DM2 with peripheral neuropathy, CAD (s/p 5 stents 5-6 years ago), and HTN presents with pain/swelling/tenderness L great toe with associated fever/chills after traumatic injury/puncture 2 weeks ago. 1. Acute Osteomyelitis L Great Toe with Cellulitis - POD 2 s/p L great toe amputation/I and D Xray L foot - findings suggestive of OM distal phalynx MRI - soft tissue swelling 1st toe and bone marrow edema consistent with OM. Surgical Cultures polymicrobial - LFNB, GpD Strep, Proteus. Blood Cx negative. Surgical pathology - bone margins clear of osteomyelitis. Amutated toe pos for acute osteo and overlying skin necrosis/gangrene. Continue Zosyn/Vanco pending further ID eval. Podiatry following - dressings and assessment for further intervention as per Podiatry. Ongoing PT Dispo unclear due to need for PT/Wound Care with no insurance. 2. DM 2, uncontrolled. A1C 12.8 Maintain on Insulin sliding scale. 3. CAD s/p PCI/Stent x 5 Mild flat elevation in Troponins. Echo - normal EF Evaluated by Cardio - continued on Aspirin, started on Statin. 4. 6mm calcified RUL granuloma, unclear past TB exposure. No active pulmonary disease currently. For Pulm eval as out-patient. 5. Hypophosphatemia - repleted. Will recheck. DVT Px - Heparin SQ
--- NOTE | 2019-05-03 14:48 | PN ---
Physical Exam: SUBJECTIVE: Patient seen and examined. Pt is afebrile and asymptomatic. Pt states he has mild pain but otherwise he is doing well. Denies f/c/n/v/d/sob/ chest pain. OBJECTIVE: Vital Signs Period Temp Pulse Resp BP Sys/Ohara Pulse Ox Last 24 Hr 98.2 F-99.7 F 75-79 18-20 122-134/63-77 99-99 GENERAL: The patient is awake, alert, and fully oriented, in no acute distress. EYES: PERRL, extraocular movements intact, No ptosis. ENT:oropharynx clear without exudates, moist mucous membranes. NECK: Trachea midline, supple. LUNGS: Breath sounds equal, clear to auscultation bilaterally, no wheezes, no crackles HEART: Regular rate and rhythm, S1, S2 without murmur, rub or gallop. ABDOMEN: Soft, nontender, nondistended, normoactive bowel sounds, no guarding, EXTREMITIES: Right LE: 2+ pulses, warm, well-perfused, no edema. Left LE: Foot is wrapped, POD2, LE is still erythematous and tender NEUROLOGICAL: Normal speech, gait not observed. SKIN: Warm, dry, normal turgor, no rashes or lesions noted Laboratory Results - last 24 hr CBC,CMP WBC 7.7 K/mm3 (4.0-10.0) 05/03/19 07:42 RBC 4.31 M/mm3 (4.00-5.60) 05/03/19 07:42 Hgb 11.6 GM/dL (11.7-16.9) L 05/03/19 07:42 Hct 34.7 % (35.4-49) L 05/03/19 07:42 MCV 80.7 fl (80-96) 05/03/19 07:42 MCH 27.0 pg (25.7-33.7) 05/03/19 07:42 MCHC 33.5 g/dl (32.0-35.9) 05/03/19 07:42 RDW 12.6 % (11.9-15.9) 05/03/19 07:42 Plt Count 417 K/MM3 (134-434) 05/03/19 07:42 MPV 8.1 fl (7.5-11.1) 05/03/19 07:42 Absolute Neuts (auto) 8.5 K/mm3 (1.5-8.0) H 05/01/19 07:24 Neutrophils % 74.9 % (42.8-82.8) 05/01/19 07:24 Lymphocytes % 11.1 % (8-40) D 05/01/19 07:24 Monocytes % 12.1 % (3.8-10.2) H 05/01/19 07:24 Eosinophils % 1.3 % (0-4.5) D 05/01/19 07:24 Basophils % 0.6 % (0-2.0) 05/01/19 07:24 Nucleated RBC % 0 % (0-0) 05/01/19 07:24 ESR 72 mm/hr (0-20) H 04/30/19 03:40 Sodium 137 mmol/L (136-145) 05/03/19 07:42 Potassium 4.3 mmol/L (3.5-5.1) 05/03/19 07:42 Chloride 106 mmol/L (98-107) 05/03/19 07:42 Carbon Dioxide 28 mmol/L (21-32) 05/03/19 07:42 Anion Gap 4 MMOL/L (8-16) L 05/03/19 07:42 BUN 10.4 mg/dL (7-18) 05/03/19 07:42 Creatinine 1.2 mg/dL (0.55-1.3) 05/03/19 07:42 Est GFR (CKD-EPI)AfAm 77.88 05/03/19 07:42 Est GFR (CKD-EPI)NonAf 67.19 05/03/19 07:42 POC Glucometer 158 UNITS (80-120) 05/03/19 11:38 Random Glucose 206 mg/dL (74-106) H 05/03/19 07:42 Hemoglobin A1c % 12.1 % (4.2-6.3) H 04/30/19 03:40 Lactic Acid 1.2 mmol/L (0.4-2.0) 04/30/19 08:37 Calcium 8.4 mg/dL (8.5-10.1) L 05/03/19 07:42 Phosphorus 2.3 mg/dL (2.5-4.9) L 05/01/19 07:24 Magnesium 2.0 mg/dL (1.8-2.4) 05/02/19 07:00 Total Bilirubin 0.3 mg/dL (0.2-1) 05/03/19 07:42 AST 13 U/L (15-37) L 05/03/19 07:42 ALT 14 U/L (13-61) 05/03/19 07:42 Alkaline Phosphatase 60 U/L (45-117) 05/03/19 07:42 Troponin I 0.06 ng/ml (0.00-0.05) H 04/30/19 21:00 C-Reactive Protein 11.8 MG/DL (0.00-0.3) H 04/30/19 03:40 Total Protein 6.1 g/dl (6.4-8.2) L 05/03/19 07:42 Albumin 2.1 g/dl (3.4-5.0) L 05/03/19 07:42 Active Medications Current Medications Aspirin (Asa -) 81 mg PO DAILY [facility] Last Admin: 05/03/19 10:58 Dose: 81 mg Atorvastatin Calcium (Lipitor -) 40 mg PO HS [facility] Last Admin: 05/02/19 22:54 Dose: 40 mg Fentanyl (Sublimaze Injection -) 50 mcg IVPUSH Q5M PRN PRN Reason: PAIN-PACU ORDER X 4 DOSES ONLY Fentanyl (Sublimaze Injection -) 50 mcg IVPUSH Q5M PRN PRN Reason: PAIN-PACU ORDER X 4 DOSES ONLY Heparin Sodium (Porcine) (Heparin -) 5,000 unit SQ TID [facility] Last Admin: 05/03/19 06:38 Dose: 5,000 unit Sodium Chloride (Normal Saline -) 1,000 mls @ 100 mls/hr IV ASDIR [facility] Last Admin: 05/02/19 18:12 Dose: 100 mls/hr Vancomycin HCl 1,250 mg/ (Dextrose) 250 mls @ 166.667 mls/hr IVPB Q12H [facility]; Protocol Last Admin: 05/03/19 07:37 Dose: 166.667 mls/hr Piperacillin Sod/Tazobactam (Sod 4.5 gm/ Dextrose) 100 mls @ 200 mls/hr IVPB Q8H-IV [facility]; Protocol Last Admin: 05/03/19 10:58 Dose: 200 mls/hr Insulin Aspart (Novolog Vial Sliding Scale -) 1 vial SQ ACHS [facility]; Protocol Last Admin: 05/03/19 11:48 Dose: 2 units Insulin Aspart (Novolog Vial) 14 units SQ ACBK [facility] Last Admin: 05/03/19 06:38 Dose: 14 units Morphine Sulfate (Morphine Sulfate) 2 mg IVPUSH Q4H PRN PRN Reason: PAIN LEVEL 4 - 6 Last Admin: 05/03/19 06:39 Dose: 2 mg Nicotine (Nicoderm Patch -) 7 mg TD DAILY [facility] Last Admin: 05/03/19 10:59 Dose: 7 mg Ondansetron HCl (Zofran Injection) 4 mg IVPUSH Q6H PRN PRN Reason: NAUSEA AND/OR VOMITING Promethazine HCl (Phenergan Injection -) 12.5 mg IVPUSH Q6H PRN PRN Reason: NAUSEA-FOR RESCUE AFTER 15 MIN Home Medications Medication Instructions Recorded Aspirin [ASA -] 81 mg PO DAILY 04/30/19 Insulin Regular [NOVOLIN R VIAL 14 unit SQ DAILY 04/30/19 *IVPUSH / ER / ICU Only*] Microbiology 05/01/19 15:13 Bone Gram Stain - Final 05/01/19 15:13 Bone Tissue Culture - Preliminary 05/01/19 15:05 Toe - Left Hallux Gram Stain - Final 05/01/19 15:05 Toe - Left Hallux Wound Culture - Preliminary Lactose Fermenting Neg Bacilli Proteus Species Group D Strep Or Entero Coccus 04/30/19 03:40 Blood - Peripheral Venous Blood Culture - Preliminary NO GROWTH OBTAINED AFTER 72 HOURS, INCUBATION TO CONTINUE FOR 2 DAYS. 04/30/19 03:40 Blood - Peripheral Venous Blood Culture - Preliminary NO GROWTH OBTAINED AFTER 72 HOURS, INCUBATION TO CONTINUE FOR 2 DAYS. 04/30/19 12:00 Urine - Urine Clean Catch Urine Culture - Final Enterococcus Faecalis ASSESSMENT/PLAN: 58 y/o M pmh of DM2 with peripheral neuropathy(diagnosed 25 years ago), CAD( s/ p 5 stents 5-6 years ago), and HTN presents for left hallux pain and swelling over the last 2 weeks admitted for osteomylitis of the toe confirmed on MRI #Osteomylelitis of the left Hallux POD3 MRI confirmed osteomylelitis cont zosyn and vanc Discussed with Dr. Pratt, who stated that the leg appeared worse during surgery than on radiological report, containing sinus tracts that extended up the LE. Will require pt to be monitored and might need a second look and wash out. Wound Cx: lactose fermenting neg bacilli, proteus, Group D strep Urine Cx- entrococcus faecalis BCx neg x2 Surgical Pathology report: bone margins clear of osteomyelitis. Will need Physical therapy- partial WB left heel with surgical shoe #CAD s/p PCI Started on ASA and atorvastatin 40 #DM Maintain on Insulin sliding scale. Cardiology consult appreciated #RUL Granuloma seen on imaging TB exposure unclear- likely due to travel from [facility] as out-patient. DVT Ppx Heparin SQ FEN IVF @ 100 monitor lytes Diabetic diet Dispo: cont abx, discuss with podiatry for likely d/c Visit type - Emergency Visit Emergency Visit: Yes ED Registration Date: 04/30/19 Care time: The patient presented to the Emergency Department on the above date and was hospitalized for further evaluation of their emergent condition. - New Patient This patient is new to me today: Yes Date on this admission: 05/04/19 - Critical Care Critical Care patient: No - Discharge Referral Referred to [facility] Med P.C.: No ATTENDING PHYSICIAN STATEMENT I saw and evaluated the patient. I reviewed the resident's note and discussed the case with the resident. I agree with the resident's findings and plan as documented. SUBJECTIVE: OBJECTIVE: ASSESSMENT AND PLAN:
--- NOTE | 2019-05-03 15:34 | PN ---
Progress Note (short form) - Note Progress Note: s: no chest pain, palps, dizziness, dyspnea. Current Medications Generic Name Dose Route Start Last Admin Trade Name Freq PRN Reason Stop Dose Admin Aspirin 81 mg 05/02/19 10:00 05/03/19 10:58 Asa - PO 81 mg DAILY DORIAN Administration Atorvastatin Calcium 40 mg 05/01/19 22:00 05/02/19 22:54 Lipitor - PO 40 mg HS DORIAN Administration Fentanyl 50 mcg 05/01/19 15:45 Sublimaze Injection - IVPUSH Q5M PRN PAIN-PACU ORDER X 4 DOSES ONLY Fentanyl 50 mcg 05/01/19 15:45 Sublimaze Injection - IVPUSH Q5M PRN PAIN-PACU ORDER X 4 DOSES ONLY Heparin Sodium (Porcine) 5,000 unit 05/01/19 22:00 05/03/19 14:56 Heparin - SQ 5,000 unit TID DORIAN Administration Sodium Chloride 1,000 mls @ 100 mls/hr 05/01/19 15:45 05/02/19 18:12 Normal Saline - IV 100 mls/hr ASDIR DORIAN Administration Vancomycin HCl 1,250 mg/ 250 mls @ 166.667 mls/hr 05/01/19 19:00 05/03/19 07: 37 Dextrose IVPB 166.667 mls/hr Q12H DORIAN Administration Protocol Piperacillin Sod/Tazobactam 100 mls @ 200 mls/hr 05/01/19 18:00 05/03/19 10: 58 Sod 4.5 gm/ Dextrose IVPB 200 mls/hr Q8H-IV DORIAN Administration Protocol Insulin Aspart 1 vial 05/01/19 16:30 05/03/19 11:48 Novolog Vial Sliding Scale - SQ 2 units ACHS DORIAN Administration Protocol Insulin Aspart 14 units 05/02/19 07:00 05/03/19 06:38 Novolog Vial SQ 14 units ACBK DORIAN Administration Morphine Sulfate 2 mg 05/01/19 15:45 05/03/19 06:39 Morphine Sulfate IVPUSH 2 mg Q4H PRN Administration PAIN LEVEL 4 - 6 Nicotine 7 mg 05/02/19 10:00 05/03/19 10:59 Nicoderm Patch - TD 7 mg DAILY DORIAN Administration Ondansetron HCl 4 mg 05/01/19 15:45 Zofran Injection IVPUSH Q6H PRN NAUSEA AND/OR VOMITING Promethazine HCl 12.5 mg 05/01/19 15:45 Phenergan Injection - IVPUSH Q6H PRN NAUSEA-FOR RESCUE AFTER 15 MIN Vital Signs Period Temp Pulse Resp BP Sys/Ohara Pulse Ox Last 24 Hr 98.2 F-99.7 F 75-79 18-20 122-134/63-77 99-99 Constitutional: Yes: Well Nourished, No Distress, Calm Eyes: Yes: Conjunctiva Clear, EOM Intact HENT: Yes: Atraumatic, Normocephalic Neck: Yes: Supple, Trachea Midline Respiratory: Yes: Regular, CTA Bilaterally Gastrointestinal: Yes: Normal Bowel Sounds, Soft Cardiovascular: Yes: Regular Rate and Rhythm JVD: No Heart Sounds: Yes: S1, S2 Edema: No Integumentary: No: Jaundice Neurological: Yes: Alert, Oriented Psychiatric: No: Agitated CBC, BMP 05/03/19 07:42 05/03/19 07:42 Assessment/Plan EKG: sinus, low voltage, old inf infarct no prior echo 04/2019 nl LV/RV function, mildly dilated LA/RA, tr MR, tr TR CT chest: calcification of coronary arteries, RUL nodule CAD s/p stents, elevated trop - no recent cardiac follow up - trop 0.06 indeterminate range, flat trend - likely demand in setting of osteomyelitis - echo unremarkable - cont aspirin, started statin DM foot infection, preop evaluation - s/p L hallux amputation, tolerated well - abx per ID smoking - encouraged cessation DM - manage per primary HTN - stable, not on meds
--- NOTE | 2019-05-03 15:43 | PN ---
Progress Note (short form) - Note Progress Note: no complaints Vital Signs Period Temp Pulse Resp BP Sys/Ohara Pulse Ox Last 24 Hr 98.2 F-99.7 F 75-79 18-20 122-134/63-77 99-99 cor-rrr lungs clear abd soft,nt ext foot wound is clean and dry, sutures intact Microbiology 05/01/19 15:05 Toe - Left Hallux Gram Stain - Final 05/01/19 15:05 Toe - Left Hallux Wound Culture - Preliminary Lactose Fermenting Neg Bacilli Proteus Species Group D Strep Or Entero Coccus 05/01/19 15:13 Bone Gram Stain - Final 05/01/19 15:13 Bone Tissue Culture - Preliminary 04/30/19 03:40 Blood - Peripheral Venous Blood Culture - Preliminary NO GROWTH OBTAINED AFTER 72 HOURS, INCUBATION TO CONTINUE FOR 2 DAYS. 04/30/19 03:40 Blood - Peripheral Venous Blood Culture - Preliminary NO GROWTH OBTAINED AFTER 72 HOURS, INCUBATION TO CONTINUE FOR 2 DAYS. 04/30/19 12:00 Urine - Urine Clean Catch Urine Culture - Final Enterococcus Faecalis vanco 13.4 a/p s/p amputation of the first toe diabetes continue vanco/zosyn f/u cultures f/u pathology Problem List - Problems (1) Diabetic infection of left foot Code(s): E11.628 - TYPE 2 DIABETES MELLITUS WITH OTHER SKIN COMPLICATIONS; L08.9 - LOCAL INFECTION OF THE SKIN AND SUBCUTANEOUS TISSUE, UNSP (2) Osteomyelitis Code(s): M86.9 - OSTEOMYELITIS, UNSPECIFIED
[2019-05-03] MEDS: SODIUM CHLORIDE 1,000 ML IV SCH (17:57)
--- NOTE | 2019-05-03 17:59 | PN ---
Progress Note (short form) - Note Progress Note: Podiatry F/U: Seen/evaluated at bedside NAD. Denies F/V/N/C/SOB/CP. Doing well today.S/p amputation. Feeling much better. MANOLO: L foot: Dressing clean, dry, intact; no active bleeding, no bandage strikethrough. Pedal pulses 2/4, TG wnl. Sutures are well coapted, packing in place. There is no postoperative dehiscence noted, no purulent drainage, no fluctuance, no soft tissue crepitus, no streaking cellulitis, no signs of acute infection. There is some slough distally at the packing site and distallyleft open for drainage to occur if needed, OR Cx: pending Imp: 58 year old poorly controlled diabetic male s/p left hallux amputation POD# 1 Evaluated and reviewed f/u cultures for possible need for retirement iv abx surgical site looks very good; will not need to go down for secondary flush at this time Once cultures are in patietn is stable from pod point for d/c Will need to have f/u in the wound care center after d/c as well for continued care and wound healing. Will follow.
[2019-05-03] MEDS: ATORVASTATIN CA 40 MG TABLET (FP) PO SCH (21:01)
[2019-05-04] MEDS ORDERED: DEXTROSE 5%-WATER 100 ML IVPB ONE ×2 (01:17→10:15)
[2019-05-04] MEDS ORDERED: PIPERACILLIN/TAZOBACTAM 4.5 GM VIAL IVPB ONE ×2 (01:17→10:15)
[2019-05-04] MEDS: PIPERACILLIN/TAZOB 4.5 GM 4.5 GM in DEXTROSE 5%-WATER 100 ML IVPB SCH ×2 (01:25→10:18)
[2019-05-04] MEDS: MORPHINE SULFATE 2 MG/ML VIAL IVPUSH PRN (02:17)
[2019-05-04] MEDS: HEPARIN NA (PORCINE) 5,000 UNITS/ML 1ML VIAL SQ SCH ×2 (06:11→13:19)
[2019-05-04] MEDS: INSULIN SLIDING SCALE (NOVOLOG) 1 VIAL SQ SCH ×3 (06:11→18:10)
[2019-05-04] MEDS: INSULIN (NOVOLOG) ASPART 100 UNITS/ML 10ML VIAL SQ SCH (06:11)
[2019-05-04] MEDS: VANCOMYCIN 1,250 MG in DEXTROSE 5%-WATER - 250 ML IVPB SCH (06:20)
--- NOTE | 2019-05-04 07:02 | PN ---
Progress Note (short form) - Note Progress Note: Podiatry F/U: Seen/evaluated at bedside NAD. Pain controlled, denies F/V/N/C/SOB/CP. AFebrile. S/p Left hallux amputation. MANOLO: L foot: pedal pulses palpable, TG wnl. Dressing C/D/I, no active bleeding. Sutures coapted with some dehiscence distally, underlying fibrogranular base, regular borders, no probing to bone, no purulent drainage, no fluctuance, no streaking cellulitis, no signs of active infection. OR Cx: group d strep entero, proteus bone cx: pending OR Path: margins negative for osteomyelitis Imp: 58 year old diabetic male s/p left hallux amputation for osteomyelitis 1. Abx per ID 2. Can use bactroban to the incision site changed daily 3. Partial WB L heel with surgical shoe 4. Once insurance issues rectified okay for discharge from my standpoint. Can f/ u in wound healing center with me upon discharge. Chet Weiss DPM
[2019-05-04] MEDS ORDERED: PT OWN MED DRAWER 7, Y5N ONE ×2 (10:15→18:19)
[2019-05-04 10:16] LABS: HEMATOCRIT 37.3 % (35.4-49); HEMOGLOBIN 12.4 GM/dL (11.7-16.9); MCH 26.9 pg (25.7-33.7); MCHC 33.3 g/dl (32.0-35.9); MEAN CELL VOLUME 80.7 fl (80-96); MEAN PLT VOLUME 8.2 fl (7.5-11.1); PLATELET COUNT 471 K/MM3 (134-434); RBC 4.62 M/mm3 (4.00-5.60); RDW 12.6 % (11.9-15.9); WHITE BLOOD COUNT 8.5 K/mm3 (4.0-10.0)
[2019-05-04] MEDS: ASPIRIN 81 MG CHEWABLE TABLETS PO SCH (10:17)
[2019-05-04] MEDS: NICOTINE 7 MG/24 HOURS TOPICAL PATCH TD SCH (10:20)
[2019-05-04 10:30] LABS: ALBUMIN 2.4 g/dl (3.4-5.0); BILIRUBIN,TOTAL 0.3 mg/dL (0.2-1); BLOOD UREA NITROGEN 11.4 mg/dL (7-18); CALCIUM 8.7 mg/dL (8.5-10.1); CREATININE 1.4 mg/dL (0.55-1.3); MAGNESIUM 2.2 mg/dL (1.8-2.4); POTASSIUM 4.6 mmol/L (3.5-5.1); TOT PROT 6.9 g/dl (6.4-8.2)
--- NOTE | 2019-05-04 12:40 | PN ---
Teaching Attending Note Name of Resident: [place]mer [place] ATTENDING PHYSICIAN STATEMENT I saw and evaluated the patient. I reviewed the resident's note and discussed the case with the resident. I agree with the resident's findings and plan as documented. SUBJECTIVE: Pain well controlled L great toe surgical site. POD 3 s/p L great toe amputation and I&D. OBJECTIVE: Afebrile, Hemodynamically stable. Last Vital Signs Temp Pulse Resp BP Pulse Ox 98.0 F 76 20 157/86 99 05/03/19 19:52 05/03/19 19:52 05/03/19 22:47 05/03/19 19:52 05/03/19 22:47 Heart - S1, S2, RRR Lungs - clear to auscultation Abdomen - Soft, non-tender. Bowel Sounds normal. Extremities - Continued improvement in L foot swelling/tenderness. Surgical L great toe amputation site dressed. Neuro - AAO x 3. Tone/Power normal all extremities. Laboratory Results - last 24 hr 05/03/19 05/03/19 05/04/19 17:43 21:06 06:09 WBC RBC Hgb Hct MCV MCH MCHC RDW Plt Count MPV Sodium Potassium Chloride Carbon Dioxide Anion Gap BUN Creatinine Est GFR (CKD-EPI)AfAm Est GFR (CKD-EPI)NonAf POC Glucometer 264 338 193 Random Glucose Calcium Phosphorus Magnesium Total Bilirubin AST ALT Alkaline Phosphatase Total Protein Albumin 05/04/19 05/04/19 08:50 08:50 WBC 8.5 RBC 4.62 Hgb 12.4 Hct 37.3 MCV 80.7 MCH 26.9 MCHC 33.3 RDW 12.6 Plt Count 471 H MPV 8.2 Sodium 136 Potassium 4.6 Chloride 101 Carbon Dioxide 29 Anion Gap 5 L BUN 11.4 Creatinine 1.4 H Est GFR (CKD-EPI)AfAm 64.63 Est GFR (CKD-EPI)NonAf 55.77 POC Glucometer Random Glucose 177 H Calcium 8.7 Phosphorus 3.0 Magnesium 2.2 Total Bilirubin 0.3 AST 16 ALT 18 Alkaline Phosphatase 60 Total Protein 6.9 Albumin 2.4 L Current Medications Generic Name Dose Route Start Last Admin Trade Name Freq PRN Reason Stop Dose Admin Aspirin 81 mg 05/02/19 10:00 05/04/19 10:17 Asa - PO 81 mg DAILY DORIAN Administration Atorvastatin Calcium 40 mg 05/01/19 22:00 05/03/19 21:01 Lipitor - PO 40 mg HS DORIAN Administration Fentanyl 50 mcg 05/01/19 15:45 Sublimaze Injection - IVPUSH Q5M PRN PAIN-PACU ORDER X 4 DOSES ONLY Fentanyl 50 mcg 05/01/19 15:45 Sublimaze Injection - IVPUSH Q5M PRN PAIN-PACU ORDER X 4 DOSES ONLY Heparin Sodium (Porcine) 5,000 unit 05/01/19 22:00 05/04/19 06:11 Heparin - SQ 5,000 unit TID DORIAN Administration Sodium Chloride 1,000 mls @ 100 mls/hr 05/01/19 15:45 05/03/19 17:57 Normal Saline - IV 100 mls/hr ASDIR DORIAN Administration Vancomycin HCl 1,250 mg/ 250 mls @ 166.667 mls/hr 05/01/19 19:00 05/04/19 06: 20 Dextrose IVPB 166.667 mls/hr Q12H DORIAN Administration Protocol Piperacillin Sod/Tazobactam 100 mls @ 200 mls/hr 05/01/19 18:00 05/04/19 10: 18 Sod 4.5 gm/ Dextrose IVPB 200 mls/hr Q8H-IV DORIAN Administration Protocol Insulin Aspart 1 vial 05/01/19 16:30 05/04/19 12:39 Novolog Vial Sliding Scale - SQ 4 units ACHS DORIAN Administration Protocol Insulin Aspart 14 units 05/02/19 07:00 05/04/19 06:11 Novolog Vial SQ 14 units ACBK DORIAN Administration Morphine Sulfate 2 mg 05/01/19 15:45 05/04/19 02:17 Morphine Sulfate IVPUSH 2 mg Q4H PRN Administration PAIN LEVEL 4 - 6 Nicotine 7 mg 05/02/19 10:00 05/04/19 10:20 Nicoderm Patch - TD 7 mg DAILY DORIAN Administration Ondansetron HCl 4 mg 05/01/19 15:45 Zofran Injection IVPUSH Q6H PRN NAUSEA AND/OR VOMITING Promethazine HCl 12.5 mg 05/01/19 15:45 Phenergan Injection - IVPUSH Q6H PRN NAUSEA-FOR RESCUE AFTER 15 MIN Home Medications Medication Instructions Recorded Aspirin [ASA -] 81 mg PO DAILY 04/30/19 Insulin Regular [NOVOLIN R VIAL 14 unit SQ DAILY 04/30/19 *IVPUSH / ER / ICU Only*] RX: Atorvastatin Ca [Lipitor] 80 mg PO DAILY 05/03/19 RX: Lisinopril [Zestril] 2.5 mg PO DAILY 05/03/19 metFORMIN HCL [Metformin HCl] 500 mg PO BID 05/03/19 ASSESSMENT AND PLAN: 58 year old male with DM2 with peripheral neuropathy, CAD (s/p 5 stents 5-6 years ago), and HTN presents with pain/swelling/tenderness L great toe with associated fever/chills after traumatic injury/puncture 2 weeks ago. 1. Acute Osteomyelitis L Great Toe with Cellulitis - POD 3 s/p L great toe amputation/I and D Xray L foot - findings suggestive of OM distal phalynx MRI - soft tissue swelling 1st toe and bone marrow edema consistent with OM. Surgical Cultures polymicrobial - Proteus/Klebsiella/StrepB/Strep D or Enterococcus. Bone Cx pos for Proteus/Kelabsiella. Blood Cx negative. Surgical pathology - bone margins clear of osteomyelitis. Amputated toe pos for acute osteomyelitis and overlying skin necrosis/gangrene. On Zosyn/Vanco - Vanco stopped. Continued on Zosyn pending further ID eval. Podiatry following - dressings as per Podiatry with local bactroban. For out- patient wound care clinic as per Podiatry. Ongoing PT Dispo unclear due to need for ? IV Abx/PT/Wound Care with no insurance. 2. DM 2, uncontrolled. A1C 12.8 Maintain on Insulin sliding scale. 3. CAD s/p PCI/Stent x 5 Mild flat elevation in Troponins. Echo - normal EF Evaluated by Cardio - continued on Aspirin, started on Statin. 4. 6mm calcified RUL granuloma, unclear past TB exposure. No active pulmonary disease currently. For Pulm eval as out-patient. 5. Hypophosphatemia - repleted. 6. Mild elevation in Creat - will hydrate and monitor. Vancomycin discontinued. DVT Px - Heparin SQ
[2019-05-04] MEDS ORDERED: SODIUM CHLORIDE 1,000 ML IV STA (12:58)
--- NOTE | 2019-05-04 13:20 | PN ---
Progress Note (short form) - Note Progress Note: s: no chest pain, palps, dizziness, dyspnea. Current Medications Generic Name Dose Route Start Last Admin Trade Name Freq PRN Reason Stop Dose Admin Aspirin 81 mg 05/02/19 10:00 05/04/19 10:17 Asa - PO 81 mg DAILY DORIAN Administration Atorvastatin Calcium 40 mg 05/01/19 22:00 05/03/19 21:01 Lipitor - PO 40 mg HS DORIAN Administration Fentanyl 50 mcg 05/01/19 15:45 Sublimaze Injection - IVPUSH Q5M PRN PAIN-PACU ORDER X 4 DOSES ONLY Fentanyl 50 mcg 05/01/19 15:45 Sublimaze Injection - IVPUSH Q5M PRN PAIN-PACU ORDER X 4 DOSES ONLY Heparin Sodium (Porcine) 5,000 unit 05/01/19 22:00 05/04/19 13:19 Heparin - SQ 5,000 unit TID DORIAN Administration Sodium Chloride 1,000 mls @ 100 mls/hr 05/01/19 15:45 05/03/19 17:57 Normal Saline - IV 100 mls/hr ASDIR DORIAN Administration Piperacillin Sod/Tazobactam 100 mls @ 200 mls/hr 05/01/19 18:00 05/04/19 10: 18 Sod 4.5 gm/ Dextrose IVPB 200 mls/hr Q8H-IV DORIAN Administration Protocol Sodium Chloride 1,000 mls @ 1,000 mls/hr 05/04/19 12:58 05/04/19 13:15 Normal Saline - IV 05/04/19 13:57 1,000 mls/hr ASDIR STA Administration Insulin Aspart 1 vial 05/01/19 16:30 05/04/19 12:39 Novolog Vial Sliding Scale - SQ 4 units ACHS DORIAN Administration Protocol Insulin Aspart 14 units 05/02/19 07:00 05/04/19 06:11 Novolog Vial SQ 14 units ACBK DORIAN Administration Morphine Sulfate 2 mg 05/01/19 15:45 05/04/19 02:17 Morphine Sulfate IVPUSH 2 mg Q4H PRN Administration PAIN LEVEL 4 - 6 Nicotine 7 mg 05/02/19 10:00 05/04/19 10:20 Nicoderm Patch - TD 7 mg DAILY DORIAN Administration Ondansetron HCl 4 mg 05/01/19 15:45 Zofran Injection IVPUSH Q6H PRN NAUSEA AND/OR VOMITING Promethazine HCl 12.5 mg 05/01/19 15:45 Phenergan Injection - IVPUSH Q6H PRN NAUSEA-FOR RESCUE AFTER 15 MIN Vital Signs Period Temp Pulse Resp BP Sys/Ohara Pulse Ox Last 24 Hr 98.0 F-98.7 F 75-76 18-20 128-157/76-88 99 Constitutional: Yes: Well Nourished, No Distress, Calm Eyes: Yes: Conjunctiva Clear, EOM Intact HENT: Yes: Atraumatic, Normocephalic Neck: Yes: Supple, Trachea Midline Respiratory: Yes: Regular, CTA Bilaterally Gastrointestinal: Yes: Normal Bowel Sounds, Soft Cardiovascular: Yes: Regular Rate and Rhythm JVD: No Heart Sounds: Yes: S1, S2 Edema: No Integumentary: No: Jaundice Neurological: Yes: Alert, Oriented Psychiatric: No: Agitated CBC, BMP 05/04/19 08:50 05/04/19 08:50 Assessment/Plan EKG: sinus, low voltage, old inf infarct no prior echo 04/2019 nl LV/RV function, mildly dilated LA/RA, tr MR, tr TR CT chest: calcification of coronary arteries, RUL nodule CAD s/p stents, elevated trop - no recent cardiac follow up - trop 0.06 indeterminate range, flat trend - likely demand in setting of osteomyelitis - echo unremarkable - cont aspirin, started statin DM foot infection, preop evaluation - s/p L hallux amputation, tolerated well - abx per ID smoking - encouraged cessation DM - manage per primary HTN - stable, not on meds
--- NOTE | 2019-05-04 13:31 | PN ---
Progress Note, Physician History of Present Illness: AWAKE, ALERT NO C/O FOOT PAIN PATH REPORT SHOWS CLEAR BONE MARGINS - Current Medication List Current Medications: Active Medications Aspirin (Asa -) 81 mg PO DAILY [facility] Last Admin: 05/04/19 10:17 Dose: 81 mg Atorvastatin Calcium (Lipitor -) 40 mg PO HS [facility] Last Admin: 05/03/19 21:01 Dose: 40 mg Fentanyl (Sublimaze Injection -) 50 mcg IVPUSH Q5M PRN PRN Reason: PAIN-PACU ORDER X 4 DOSES ONLY Fentanyl (Sublimaze Injection -) 50 mcg IVPUSH Q5M PRN PRN Reason: PAIN-PACU ORDER X 4 DOSES ONLY Heparin Sodium (Porcine) (Heparin -) 5,000 unit SQ TID [facility] Last Admin: 05/04/19 13:19 Dose: 5,000 unit Sodium Chloride (Normal Saline -) 1,000 mls @ 100 mls/hr IV ASDIR [facility] Last Admin: 05/03/19 17:57 Dose: 100 mls/hr Sodium Chloride (Normal Saline -) 1,000 mls @ 1,000 mls/hr IV ASDIR STA Stop: 05/04/19 13:57 Last Admin: 05/04/19 13:15 Dose: 1,000 mls/hr Insulin Aspart (Novolog Vial Sliding Scale -) 1 vial SQ ACHS [facility]; Protocol Last Admin: 05/04/19 12:39 Dose: 4 units Insulin Aspart (Novolog Vial) 14 units SQ ACBK [facility] Last Admin: 05/04/19 06:11 Dose: 14 units Morphine Sulfate (Morphine Sulfate) 2 mg IVPUSH Q4H PRN PRN Reason: PAIN LEVEL 4 - 6 Last Admin: 05/04/19 02:17 Dose: 2 mg Nicotine (Nicoderm Patch -) 7 mg TD DAILY [facility] Last Admin: 05/04/19 10:20 Dose: 7 mg Ondansetron HCl (Zofran Injection) 4 mg IVPUSH Q6H PRN PRN Reason: NAUSEA AND/OR VOMITING Promethazine HCl (Phenergan Injection -) 12.5 mg IVPUSH Q6H PRN PRN Reason: NAUSEA-FOR RESCUE AFTER 15 MIN - Objective Vital Signs: Vital Signs Temperature 98.0 F 05/03/19 19:52 Pulse Rate 76 05/03/19 19:52 Respiratory Rate 20 05/03/19 22:47 Blood Pressure 157/86 05/03/19 19:52 O2 Sat by Pulse Oximetry (%) 99 05/03/19 22:47 Cardiovascular: Yes: Regular Rate and Rhythm, S1, S2 Respiratory: Yes: CTA Bilaterally Gastrointestinal: Yes: Normal Bowel Sounds, Soft. No: Tenderness Extremities: Yes: Other (GREAT TOE AMP SITE NO ERYTHEMA/ DRAINAGE) Labs: CBC, BMP 05/04/19 08:50 05/04/19 08:50 INR, PTT INR 1.29 (0.83-1.09) H 05/01/19 07:24 Assessment/Plan S/P AMPUTATION GREAT TOE PATH REPORT SHOWS CLEAR BONE MARGINS SUBSTITUTE PO AUGMENTIN 875MG PO BID X7D OUTPATIENT FOLLOW UP
[2019-05-04] MEDS: SODIUM CHLORIDE 1,000 ML IV SCH (15:39)
--- NOTE | 2019-05-04 17:11 | DS ---
Physical Exam: SUBJECTIVE: Patient seen and examined Pt is afebrile and asymptomatic. Pt states he has mild pain but otherwise he is doing well. Denies f/c/n/v/d/sob/chest pain. OBJECTIVE: Vital Signs Period Temp Pulse Resp BP Sys/Ohara Pulse Ox Last 24 Hr 98 F-98.2 F 68-76 18-20 114-157/62-88 99 PHYSICAL EXAM GENERAL: The patient is awake, alert, and fully oriented, in no acute distress. EYES: PERRL, extraocular movements intact, No ptosis. ENT:oropharynx clear without exudates, moist mucous membranes. NECK: Trachea midline, supple. LUNGS: Breath sounds equal, clear to auscultation bilaterally, no wheezes, no crackles HEART: Regular rate and rhythm, S1, S2 without murmur, rub or gallop. ABDOMEN: Soft, nontender, nondistended, normoactive bowel sounds, no guarding, EXTREMITIES: Right LE: 2+ pulses, warm, well-perfused, no edema. Left LE: Foot is wrapped, POD2, LE is still erythematous and tender NEUROLOGICAL: Normal speech, gait not observed. SKIN: Warm, dry, normal turgor, no rashes or lesions noted LABS Laboratory Results - last 24 hr 05/04/19 05/04/19 05/04/19 08:50 08:50 12:36 WBC 8.5 RBC 4.62 Hgb 12.4 Hct 37.3 MCV 80.7 MCH 26.9 MCHC 33.3 RDW 12.6 Plt Count 471 H MPV 8.2 Sodium 136 Potassium 4.6 Chloride 101 Carbon Dioxide 29 Anion Gap 5 L BUN 11.4 Creatinine 1.4 H Est GFR (CKD-EPI)AfAm 64.63 Est GFR (CKD-EPI)NonAf 55.77 POC Glucometer 230 Random Glucose 177 H Calcium 8.7 Phosphorus 3.0 Magnesium 2.2 Total Bilirubin 0.3 AST 16 ALT 18 Alkaline Phosphatase 60 Total Protein 6.9 Albumin 2.4 L Current Medications Amoxicillin/Clavulanate Potassium (Augmentin - 875mg Tablet) 1 tab PO BID@0800, 1730 [facility] Aspirin (Asa -) 81 mg PO DAILY [facility] Last Admin: 05/04/19 10:17 Dose: 81 mg Atorvastatin Calcium (Lipitor -) 40 mg PO HS [facility] Last Admin: 05/03/19 21:01 Dose: 40 mg Fentanyl (Sublimaze Injection -) 50 mcg IVPUSH Q5M PRN PRN Reason: PAIN-PACU ORDER X 4 DOSES ONLY Fentanyl (Sublimaze Injection -) 50 mcg IVPUSH Q5M PRN PRN Reason: PAIN-PACU ORDER X 4 DOSES ONLY Heparin Sodium (Porcine) (Heparin -) 5,000 unit SQ TID [facility] Last Admin: 05/04/19 13:19 Dose: 5,000 unit Sodium Chloride (Normal Saline -) 1,000 mls @ 100 mls/hr IV ASDIR [facility] Last Admin: 05/04/19 15:39 Dose: 100 mls/hr Insulin Aspart (Novolog Vial Sliding Scale -) 1 vial SQ ACHS [facility]; Protocol Last Admin: 05/04/19 12:39 Dose: 4 units Insulin Aspart (Novolog Vial) 14 units SQ ACBK [facility] Last Admin: 05/04/19 06:11 Dose: 14 units Nicotine (Nicoderm Patch -) 7 mg TD DAILY [facility] Last Admin: 05/04/19 10:20 Dose: 7 mg Ondansetron HCl (Zofran Injection) 4 mg IVPUSH Q6H PRN PRN Reason: NAUSEA AND/OR VOMITING Last Admin: 05/04/19 15:35 Dose: 4 mg Promethazine HCl (Phenergan Injection -) 12.5 mg IVPUSH Q6H PRN PRN Reason: NAUSEA-FOR RESCUE AFTER 15 MIN Home Medications Medication Instructions Recorded Alcohol Antiseptic Pads [Alcohol 1 each TP TID #50 med..pad 05/04/19 Prep Pad] Amoxicillin/Potassium Clav 1 each PO BID #14 tablet 05/04/19 [Augmentin 875-125 Tablet] Aspirin [ASA -] 81 mg PO DAILY #30 tab.chew 05/04/19 Atorvastatin Ca [Lipitor] 40 mg PO DAILY #30 tablet 05/04/19 Insulin Regular [Novolin R Vial -] 14 unit SQ DAILY 30 Days units 05/04/19 Insulin Sliding Scale [Novolog 1 vial SQ ACHS #2 units 05/04/19 Vial Sliding Scale -] Lancets 1 each MC AC #50 each 05/04/19 Lisinopril [Zestril] 2.5 mg PO DAILY #30 tablet 05/04/19 Miscellaneous Medical Supply 1 each SQ ASDIR #1 kit 05/04/19 [Glucometer Device] Miscellaneous Medical Supply 1 each SQ ASDIR #1 box 05/04/19 [Glucometer Test Strips #100] Mupirocin Ointment [Bactroban] 1 applic TP TID #1 tube 05/04/19 Pen Needle, Diabetic [[place]] 1 each MC TID #50 dis.needle 05/04/19 metFORMIN HCL [Metformin HCl] 500 mg PO BID 30 Days #60 tablet 05/04/19 Microbiology 05/01/19 15:05 Toe - Left Hallux Gram Stain - Final 05/01/19 15:05 Toe - Left Hallux Wound Culture - Preliminary Klebsiella Pneumoniae Proteus Mirabilis Strep Agalactiae Group B Group D Strep Or Entero Coccus 05/01/19 15:13 Bone Gram Stain - Final 05/01/19 15:13 Bone Tissue Culture - Preliminary Proteus Mirabilis Klebsiella Pneumoniae 05/01/19 15:13 Bone Anaerobic Culture - Final NO ANAEROBES WERE ISOLATED 04/30/19 03:40 Blood - Peripheral Venous Blood Culture - Preliminary NO GROWTH OBTAINED AFTER 96 HOURS, INCUBATION TO CONTINUE FOR 1 DAYS. 04/30/19 03:40 Blood - Peripheral Venous Blood Culture - Preliminary NO GROWTH OBTAINED AFTER 96 HOURS, INCUBATION TO CONTINUE FOR 1 DAYS. 04/30/19 12:00 Urine - Urine Clean Catch Urine Culture - Final Enterococcus Faecalis HOSPITAL COURSE: Date of Admission:04/30/19 58 y/o M pmh of DM2 with peripheral neuropathy(diagnosed 25 years ago), CAD( s/ p 5 stents 5-6 years ago), and HTN presents for left hallux pain and swelling over the last 2 weeks admitted for osteomylitis of the toe confirmed on MRI, which showed soft tissue swelling 1st toe and bone marrow edema consistent with OM. We started pt on zosyn and vancomycin. Podiatry consulted, took pt to surgery and performed left hallux resection. Podiatry confirmed that the bone margins were clear of OM. Surgical Cultures polymicrobial showed Proteus/ Klebsiella/StrepB/Strep D or Enterococcus. Surgical pathology showed bone margins clear of osteomyelitis. Amputated toe positive for acute osteomyelitis and overlying skin necrosis/gangrene. Pt's symptoms improved significantly s/p surgery and abx. Abx was switched to augmentin 875mg twice a day for 7 days on discharge. Pt was also found to be diabetic and hypertensive on no medications so we prescribed him metformin, insulin novolog, lisinopril, aspirin, lipitor and glucometer kit. We also prescribed him bactroban and referrals to f/u at the vascular clinic. He has never seen a physician in the [place], so he was given referral for preschool assistant principal, primary care and cardiology along with his disease management nurse referral EKG HR 91 SD 184 QRS 98 QTc 435 NSR, TWI inversions III and aVF; no priors to compare Echo - normal EF Xray L foot - findings suggestive of OM distal phalynx MRI - soft tissue swelling 1st toe and bone marrow edema consistent with OM. Surgical Cultures polymicrobial - Proteus/Klebsiella/StrepB/Strep D or Enterococcus. Bone Cx pos for Proteus/Kelabsiella. Blood Cx negative. Surgical pathology - bone margins clear of osteomyelitis. Amputated toe pos for acute osteomyelitis and overlying skin necrosis/gangrene. Date of Discharge: 05/04/19 Minutes to complete discharge: 40 Discharge Summary Problems reviewed: Yes Reason For Visit: DIABETIC ULCER OF FOOT,CELLULITS,INVOLVMENT Condition: Good - Instructions Diet, Activity, Other Instructions: You were admitted to the hospital for left first toe pain While in the hospital, we evaluated you with lab work, blood work, imaging including MRI of your foot. We found that your symptoms were caused by an infection of your toe. You underwent surgery for the removal of your toe and were treated with antibiotics, which improved your symptoms. To complete the treatment of your infection, please take the following medications: Augmentin 875 mg twice a day for 7 more days We also Started you on new medications to prevent cardiovascular disease. Please take the following medications Aspirin 81 mg daily Lisinopril 2.5 mg daily Lipitor 80 mg daily While you were here we had to control your sugars with medication For your diabetes continue: Metformin 500 mg twice a day by mouth every day Novilin 14 units every day in the morning You should check your sugars before every meal, if your sugar is high take the Novolog as found in the chart below You can take the Novolog up to three times a day before meals Sugar Level Dose of Insulin 100-150 0 units 151-200 2 units 201-250 4 units 251-300 6 units 301-350 8 units 351-400 10 units 400+ 12 units and call your doctor You will need follow up at Dr. Pratt's wound clinic for regular check up and wound care of your feet. Ensure that you keep your foot clean and dry, with proper clean dressing. Keep your foot wrapped with Tommy wrap until its fully healed. Use your surgical shoe to reduce weight bearing to your foot. You must control your blood sugar levels adequately with medications and appropriate follow up with your primary care physician You must control your diet with low carbohydrate and low sugar based foods Exercising regularly helps with diabetes as well. Please take all your medications as prescribed Please follow up with your Insert Operator Dr. Pratt within 1 week at his wound clinic. Please follow up with the preschool assistant principal, Dr. Carreno within 1 week, to ensure that you are adequately controlling your blood sugar levels. Please follow up with your primary care physician within 1 week Return to the emergency room, if you experience worsening of your symptoms, chest pain, foot pain, or any worsening of your symptoms. Referrals: [facility] [place] [facility] [place] [facility] [place] [Provider Group] - 1 Week Clarice Sneed MD [Staff Physician] - Noris Reyes MD [Staff Physician] - Amilcar Pratt DPM [Staff Physician] - Carmen Carreno MD [Staff Physician] - 1 Week Disposition: HOME - Home Medications Comprehensive Discharge Medication List: Ambulatory Orders Alcohol Antiseptic Pads [Alcohol Prep Pad] 1 each TP TID #50 med..pad 05/04/19 Amoxicillin/Potassium Clav [Augmentin 875-125 Tablet] 1 each PO BID #14 tablet 05/04/19 Aspirin [ASA -] 81 mg PO DAILY #30 tab.chew 05/04/19 Atorvastatin Ca [Lipitor] 40 mg PO DAILY #30 tablet 05/04/19 Insulin Regular [Novolin R Vial -] 14 unit SQ DAILY 30 Days units 05/04/19 Insulin Sliding Scale [Novolog Vial Sliding Scale -] 1 vial SQ ACHS #2 units Lancets 1 each MC AC #50 each 05/04/19 Lisinopril [Zestril] 2.5 mg PO DAILY #30 tablet 05/04/19 Miscellaneous Medical Supply [Glucometer Device] 1 each SQ ASDIR #1 kit Miscellaneous Medical Supply [Glucometer Test Strips #100] 1 each SQ ASDIR #1 box 05/04/19 Mupirocin Ointment [Bactroban] 1 applic TP TID #1 tube 05/04/19 Pen Needle, Diabetic [[place]] 1 each MC TID #50 dis.needle 05/04/19 metFORMIN HCL [Metformin HCl] 500 mg PO BID 30 Days #60 tablet 05/04/19 This patient is new to me today: Yes Date on this admission: 05/04/19 Emergency Visit: Yes ED Registration Date: 04/30/19 Care time: The patient presented to the Emergency Department on the above date and was hospitalized for further evaluation of their emergent condition. Critical Care patient: No - Discharge Referral Referred to [facility] Med P.C.: No ATTENDING PHYSICIAN STATEMENT I saw and evaluated the patient. I reviewed the resident's note and discussed the case with the resident. I agree with the resident's findings and plan as documented. SUBJECTIVE: OBJECTIVE: ASSESSMENT AND PLAN:
[2019-05-04] MEDS ORDERED: AMOX TR/POT CLAV 875MG/125MG TABLETS (FP) PO SCH (17:30)
[2019-05-04 18:36] VITALS: BP 127/70; PULSE 80; TEMP 98.1
== END 2019-05-04 20:05 | disposition home or self-care (01) | DRG 314 ==
LOC: JER 00:10 → JERBED 04:14 → J8W 19:06
PROC: 0J9R0ZX Drainage of Left Foot Subcutaneous Tissue and Fascia, Open Approach, Diagnostic (ICD-10-PCS; 2019-05-01)
PROC: 0Y6Q0Z1 Detachment at Left 1st Toe, High, Open Approach (ICD-10-PCS; principal; 2019-05-01 14:00)
DX: E11.69 Type 2 diabetes mellitus with other specified complication (principal); E11.621 Type 2 diabetes mellitus with foot ulcer; L97.528 Non-pressure chronic ulcer of other part of left foot with other specified severity; I25.10 Atherosclerotic heart disease of native coronary artery without angina pectoris; M86.172 Other acute osteomyelitis, left ankle and foot; I10 Essential (primary) hypertension; B96.1 Klebsiella pneumoniae [K. pneumoniae] as the cause of diseases classified elsewhere; B96.4 Proteus (mirabilis) (morganii) as the cause of diseases classified elsewhere; B95.1 Streptococcus, group B, as the cause of diseases classified elsewhere; E11.42 Type 2 diabetes mellitus with diabetic polyneuropathy; E11.65 Type 2 diabetes mellitus with hyperglycemia; E11.628 Type 2 diabetes mellitus with other skin complications; E11.52 Type 2 diabetes mellitus with diabetic peripheral angiopathy with gangrene; L08.9 Local infection of the skin and subcutaneous tissue, unspecified; I96 Gangrene, not elsewhere classified; N39.0 Urinary tract infection, site not specified; B95.2 Enterococcus as the cause of diseases classified elsewhere; L92.8 Other granulomatous disorders of the skin and subcutaneous tissue; L03.032 Cellulitis of left toe; Z95.5 Presence of coronary angioplasty implant and graft; E83.39 Other disorders of phosphorus metabolism
CPT/HCPCS: 36415; 71045-TC-FY; 71250-TC; 73630-TC-LT; 73720-LT; 80053; 81003; 82570; 82803; 82962; 83036; 83605; 83735; 84100; 84156; 84484; 85025; 85027; 85610; 85651; 85730; 86140; 87040; 87070; 87075; 87086; 87186; 87205; 88305-TC; 88311-TC; 93005; 93010; 93306-TC; 94760; 97116-GP; 97161-GP; 99284-25; G0480; J1644; J1670; J7030

== ENCOUNTER 2019-05-07 15:46 | Emergency (ER) | payer OTHER ==
[2019-05-07] MEDS ORDERED: ONDANSETRON 4 MG/2 ML VIAL IVPUSH ONE (15:50)
[2019-05-07 15:52] VITALS: BMI 25.8
--- NOTE | 2019-05-07 15:52 | PDOC ---
Rapid Medical Evaluation Time Seen by Provider: 05/07/19 15:48 Medical Evaluation: Allergies Allergy/AdvReac Type Severity Reaction Status Date / Time No Known Allergies Allergy Verified 04/30/19 02:29 05/07/19 15:51 cc: nausea and vomiting HPI: Patient reports nausea and vomiting since discharge from hospital on Monday. Denies diarrhea PE: NAD unlabored breathing non tender abdomen orders: labs This patient will proceed to the main emergency department for further evaluation Discharge Disposition - Diagnosis Nausea & vomiting - Referrals - Patient Instructions - Post Discharge Activity
[2019-05-07] MEDS ORDERED: SODIUM CHLORIDE 1,000 ML IV SCH (16:00)
[2019-05-07] MEDS ORDERED: ONDANSETRON 4 MG/2 ML VIAL ONE (16:32)
[2019-05-07 17:19] LABS: BASO % 0.4 % (0-2.0); EOS % 0.9 % (0-4.5); HEMATOCRIT 35.2 % (35.4-49); HEMOGLOBIN 11.5 GM/dL (11.7-16.9); LYMPH % 7.8 % (8-40); MCH 26.3 pg (25.7-33.7); MCHC 32.6 g/dl (32.0-35.9); MEAN CELL VOLUME 80.6 fl (80-96); MEAN PLT VOLUME 7.8 fl (7.5-11.1); MONO % 10.9 % (3.8-10.2); PLATELET COUNT 495 K/MM3 (134-434); RBC 4.36 M/mm3 (4.00-5.60); RDW 13.1 % (11.9-15.9)
[2019-05-07 17:23] LABS: PH,URINE 6.5 (5.0-8.0); URINE APPEARANCE CLOUDY; URINE BILIRUBIN NEGATIVE (NEGATIVE); URINE COLOR YELLOW; URINE GLUCOSE (UA) NEGATIVE (NEGATIVE); URINE KETONE NEGATIVE (NEGATIVE); URINE LEUK ESTERASE NEGATIVE (NEGATIVE); URINE NITRITE NEGATIVE (NEGATIVE); URINE PROTEIN NEGATIVE (NEGATIVE); URINE UROBILINOGEN 0.2 mg/dL (0.2-1.0)
[2019-05-07 17:44] LABS: ALBUMIN 2.6 g/dl (3.4-5.0); BILIRUBIN,TOTAL 0.2 mg/dL (0.2-1); BLOOD UREA NITROGEN 22.7 mg/dL (7-18); CALCIUM 8.6 mg/dL (8.5-10.1); CREATININE 3.3 mg/dL (0.55-1.3); POTASSIUM 4.9 mmol/L (3.5-5.1)
--- NOTE | 2019-05-07 18:21 | PDOC ---
History of Present Illness - General Chief Complaint: Nausea/Vomiting Stated Complaint: VOMITING Time Seen by Provider: 05/07/19 15:48 History Source: Patient Exam Limitations: No Limitations - History of Present Illness Travel History: No Initial Comments: 05/07/19 18:16 58-year-old male with history of left foot wound was sent from wound care clinic for evaluation of intermittent nausea and productive cough. Patient denies fever, chills, difficulty breathing, abdominal pain, diarrhea, or dysuria. Patient states glucose has been in the low 200s patient denies change in medications, recent illness, recent travel. Timing/Duration: reports: intermittent Quality: reports: mild Aggravating Factors: improves with: None Alleviating Factors: improves with: None Past History - Travel Traveled outside of the country in the last 30 days: No Close contact w/someone who was outside of country & ill: No - Past Medical History Allergies/Adverse Reactions: Allergies Allergy/AdvReac Type Severity Reaction Status Date / Time No Known Allergies Allergy Verified 05/07/19 15:52 Home Medications: Ambulatory Orders Alcohol Antiseptic Pads [Alcohol Prep Pad] 1 each TP TID #50 med..pad 05/04/19 Amoxicillin/Potassium Clav [Augmentin 875-125 Tablet] 1 each PO BID #14 tablet 05/04/19 Aspirin [ASA -] 81 mg PO DAILY #30 tab.chew 05/04/19 Atorvastatin Ca [Lipitor] 40 mg PO DAILY #30 tablet 05/04/19 Insulin Regular [Novolin R Vial -] 14 unit SQ DAILY 30 Days units 05/04/19 Insulin Sliding Scale [Novolog Vial Sliding Scale -] 1 vial SQ ACHS #2 units Lancets 1 each MC AC #50 each 05/04/19 Lisinopril [Zestril] 2.5 mg PO DAILY #30 tablet 05/04/19 Miscellaneous Medical Supply [Glucometer Device] 1 each SQ ASDIR #1 kit Miscellaneous Medical Supply [Glucometer Test Strips #100] 1 each SQ ASDIR #1 box 05/04/19 Mupirocin Ointment [Bactroban] 1 applic TP TID #1 tube 05/04/19 Pen Needle, Diabetic [[place]] 1 each MC TID #50 dis.needle 05/04/19 metFORMIN HCL [Metformin HCl] 500 mg PO BID 30 Days #60 tablet 05/04/19 COPD: No Diabetes: Yes HTN: Yes Hypercholesterolemia: Yes - Surgical History Cardiac Surgery: Yes (STENT) - Psycho Social/Smoking Cessation Hx Smoking History: Never smoked Hx Alcohol Use: No Drug/Substance Use Hx: No Patient Lives Alone: No Lives with/in: spouse/SO Review of Systems - Review of Systems Able to Perform ROS?: Yes Constitutional: No: Symptoms Reported HEENTM: No: Symptoms Reported Respiratory: Yes: Productive cough Cardiac (ROS): No: Symptoms Reported ABD/GI: Yes: Nausea, Vomiting (Intermittent with thick whitish phlegm) : No: Symptoms Reported Musculoskeletal: No: Symptoms Reported Integumentary: No: Symptoms Reported Neurological: No: Symptoms reported Hematologic/Lymphatic: No: Symptoms Reported *Physical Exam - Vital Signs Last Vital Signs Temp Pulse Resp BP Pulse Ox 98.3 F 77 18 115/76 98 05/07/19 15:46 05/07/19 15:46 05/07/19 15:46 05/07/19 15:46 05/07/19 15:46 - Physical Exam General Appearance: Yes: Nourished, Appropriately Dressed. No: Apparent Distress HEENT: negative: Pale Conjunctivae Neck: positive: Supple Respiratory/Chest: positive: Lungs Clear, Normal Breath Sounds. negative: Respiratory Distress, Accessory Muscle Use Cardiovascular: positive: Regular Rhythm, Regular Rate. negative: Murmur Gastrointestinal/Abdominal: positive: Soft. negative: Tenderness Musculoskeletal: negative: CVA Tenderness Extremity: positive: Normal Inspection Integumentary: positive: Normal Color, Warm, Moist Neurologic: positive: Normal Mood/Affect, Motor Strength 5/5 (Ambulatory with a cane) ED Treatment Course - LABORATORY CBC & Chemistry Diagram: 05/07/19 15:57 05/07/19 15:57 - ADDITIONAL ORDERS Additional order review: Laboratory Results 05/07/19 05/07/19 17:00 15:57 Sodium 136 Potassium 4.9 Chloride 101 Carbon Dioxide 28 Anion Gap 6 L BUN 22.7 H Creatinine 3.3 H Est GFR (CKD-EPI)AfAm 22.92 Est GFR (CKD-EPI)NonAf 19.78 Random Glucose 140 H Calcium 8.6 Total Bilirubin 0.2 AST 34 ALT 43 Alkaline Phosphatase 54 Total Protein 7.0 Albumin 2.6 L Urine Color Yellow Urine Appearance Cloudy Urine pH 6.5 Ur Specific [place] 1.008 L Urine Protein Negative Urine Glucose (UA) Negative Urine Ketones Negative Urine Blood Negative Urine Nitrite Negative Urine Bilirubin Negative Urine Urobilinogen 0.2 Ur Leukocyte Esterase Negative 05/07/19 15:57 RBC 4.36 MCV 80.6 MCHC 32.6 RDW 13.1 MPV 7.8 Neutrophils % 80.0 Lymphocytes % 7.8 L D Monocytes % 10.9 H Eosinophils % 0.9 Basophils % 0.4 - RADIOLOGY Radiology Studies Ordered: Category Date Time Status CHEST X-RAY PORTABLE* [RAD] Stat Radiology 05/07/19 16:36 Completed - Medications Given in the ED: ED Medications Discontinued Medications Generic Name Dose Route Start Last Admin Trade Name Freq PRN Reason Stop Dose Admin Ondansetron HCl 4 mg 05/07/19 15:50 05/07/19 17:12 Zofran Injection IVPUSH 05/07/19 15:51 4 mg ONCE ONE Administration Medical Decision Making - Medical Decision Making 05/07/19 17:18 Chief complaint intermittent nausea accompanied with productive cough which aggravates the nausea for the past 2 weeks exam: Vital signs stable lungs clear to auscultation no active vomiting but noted moist cough here in the ER. Plan: Labs, urine, chest x-ray, IV fluids and antiemetics ordered 05/07/19 18:19 Laboratory Tests 05/07/19 05/07/19 05/07/19 15:57 15:57 17:00 WBC 10.0 Hgb 11.5 L Hct 35.2 L Plt Count 495 H Lymphocytes % 7.8 L D Monocytes % 10.9 H Sodium 136 Potassium 4.9 Chloride 101 Carbon Dioxide 28 Anion Gap 6 L BUN 22.7 H Creatinine 3.3 H Est GFR (CKD-EPI)AfAm 22.92 Est GFR (CKD-EPI)NonAf 19.78 Random Glucose 140 H Calcium 8.6 Total Bilirubin 0.2 AST 34 ALT 43 Alkaline Phosphatase 54 Total Protein 7.0 Albumin 2.6 L Urine Color Yellow Urine Appearance Cloudy Ur Specific [place] 1.008 L Urine Protein Negative Urine Glucose (UA) Negative Urine Ketones Negative Urine Blood Negative Urine Nitrite Negative Urine Bilirubin Negative Ur Leukocyte Esterase Negative Chest x-ray shows stable nodule to the right lobe. Patient states feeling much better and requesting to go home. Patient will be discharged home with Zofran Discharge - Discharge Information Problems reviewed: Yes Clinical Impression/Diagnosis: Nausea & vomiting Condition: Improved Disposition: HOME - Follow up/Referral - Patient Discharge Instructions Patient Printed Discharge Instructions: DI for Nausea -- Adult, DI for Cough - - Adult Additional Instructions: Take Zofran as needed for nausea. Keep nasal passages clear drink plenty of fluids and follow-up with your primary care physician as needed. Otherwise return to emergency room if your symptoms worsen - Post Discharge Activity
[2019-05-07 18:35] VITALS: BP 120/78; PULSE 80; TEMP 97.6
== END 2019-05-07 18:33 | disposition home or self-care (01) ==
LOC: JER 15:46
PROC: 3E033GC Introduction of Other Therapeutic Substance into Peripheral Vein, Percutaneous Approach (ICD-10-PCS; principal; 2019-05-07)
DX: R11.2 Nausea with vomiting, unspecified (principal); I25.10 Atherosclerotic heart disease of native coronary artery without angina pectoris; I10 Essential (primary) hypertension; Z95.5 Presence of coronary angioplasty implant and graft; E11.9 Type 2 diabetes mellitus without complications; Z79.84 Long term (current) use of oral hypoglycemic drugs; E78.00 Pure hypercholesterolemia, unspecified
CPT/HCPCS: 36415; 71045-TC-FY; 80053; 81003; 85025; 87086; 96374; 99283-25; G0463-25; J7030

== ENCOUNTER 2019-05-21 09:26 | Inpatient (IN) | payer OTHER ==
--- NOTE | 2019-05-21 11:10 | PDOC ---
History of Present Illness - General Chief Complaint: Nausea Stated Complaint: WOUND Time Seen by Provider: 05/21/19 09:59 - History of Present Illness Initial Comments: 05/21/19 12:01 59 y/o M hx of CAD x/p 5 stent placements, peripheral neuropathy, HTN, T2DM presents to the ER with persistent nausea and projectile vomiting for the last 17 days. He was recently admitted treated for osteomyelitis (left toe amputation + antibiotics) and was dischargedo n the 05/04/2019. He has presented to the ER on where he was treated with Zofran and sent home with some Zofran. Past History - Past Medical History Allergies/Adverse Reactions: Allergies Allergy/AdvReac Type Severity Reaction Status Date / Time No Known Allergies Allergy Verified 05/21/19 09:34 Home Medications: Ambulatory Orders Aspirin [ASA -] 81 mg PO DAILY #30 tab.chew 05/04/19 Atorvastatin Ca [Lipitor] 40 mg PO DAILY #30 tablet 05/04/19 metFORMIN HCL [Metformin HCl] 500 mg PO BID 30 Days #60 tablet 05/04/19 Lisinopril [Prinivil] 2.5 mg PO DAILY #30 tablet 05/24/19 Melatonin 5 mg PO HS PRN tab 05/24/19 Pantoprazole Sodium [Protonix -] 40 mg PO DAILY #30 tablet.ec 05/24/19 Insulin Lispro [Humalog Kwikpen U-100] 12 unit SQ DAILY 05/28/19 COPD: No Diabetes: Yes HTN: Yes Hypercholesterolemia: Yes - Surgical History Cardiac Surgery: Yes (STENT) - Psycho Social/Smoking Cessation Hx Smoking History: Unknown if ever smoked Have you smoked in the past 12 months: No Hx Alcohol Use: No Drug/Substance Use Hx: No *Physical Exam - Vital Signs Last Vital Signs Temp Pulse Resp BP Pulse Ox 98.1 F 73 18 124/69 100 05/21/19 09:37 05/21/19 09:37 05/21/19 09:37 05/21/19 09:37 05/21/19 09:37 - Physical Exam 05/21/19 13:24 GENERAL: Awake, alert, and fully oriented, in no acute distress HEAD: No signs of trauma, normocephalic, atraumatic EYES: PERRLA, EOMI, sclera anicteric, conjunctiva clear ENT: Auricles normal inspection, hearing grossly normal, nares patent, oropharynx clear without exudates. Moist mucosa NECK: Normal ROM, supple, no lymphadenopathy, JVD, or masses LUNGS: No distress, speaks full sentences, clear to auscultation bilaterally HEART: Regular rate and rhythm, normal S1 and S2, no murmurs, rubs or gallops, peripheral pulses normal and equal bilaterally. ABDOMEN: Soft, nontender, normoactive bowel sounds. No guarding, no rebound. No masses EXTREMITIES :left toe amputation, Normal range of motion, no edema. No clubbing or cyanosis NEUROLOGICAL: Cranial nerves II through XII grossly intact. Normal speech, normal gait, no focal sensorimotor deficits SKIN: Warm, Dry, normal turgor, no rashes or lesions noted Heart Score/ECG Review - History History: Slightly suspicious - Electrocardiogram EKG: Non specific repolarization disturbance - Age Age: 45-65 - Risk Factors Risk Factors Heart Score: Yes Hx Hypercholesterolemia, Yes Hx Hypertension, Yes Hx Diabetes Based on the list above the patient has:: >/=3 risk factors or Hx atherosclerotic disease - Troponin Troponin: 1-3x normal limit - Score Heart Score - Total: 5 ED Treatment Course - LABORATORY CBC & Chemistry Diagram: 05/23/19 06:08 05/23/19 06:08 Medical Decision Making - Medical Decision Making 05/21/19 13:25 elevated troponin at 0.11 Lipase 487 repeat troponin in 3 hrs 05/21/19 13:48 Admitted for acs rule out HEART score of 5 05/21/19 13:50 Discharge - Discharge Information Problems reviewed: Yes Clinical Impression/Diagnosis: Nausea & vomiting Qualifiers: Vomiting type: unspecified Vomiting Intractability: non-intractable Qualified Code(s): R11.2 - Nausea with vomiting, unspecified Condition: Improved Disposition: HOME - Follow up/Referral - Patient Discharge Instructions - Post Discharge Activity
[2019-05-21] MEDS ORDERED: ONDANSETRON 4 MG/2 ML VIAL IVPB ONE (11:47)
[2019-05-21] MEDS ORDERED: MAG HYDROX/AL HYDROX/SIMETH 30 ML UNIT-DOSE CUP PO ONE (11:47)
[2019-05-21] MEDS ORDERED: FAMOTIDINE 20 MG/50 ML IVPB 20 MG/50 ML MG IVPB ONE ×2 (11:47→11:55)
[2019-05-21] MEDS ORDERED: SODIUM CHLORIDE 1,000 ML IV STA (11:47)
[2019-05-21] MEDS ORDERED: ONDANSETRON 4 MG/2 ML VIAL ONE (11:55)
[2019-05-21] MEDS ORDERED: MAG HYDROX/AL HYDROX/SIMETH 30 ML UNIT-DOSE CUP ONE (11:55)
[2019-05-21 12:33] LABS: BASO % 1.2 % (0-2.0); EOS % 2.7 % (0-4.5); HEMATOCRIT 37.3 % (35.4-49); MCH 26.6 pg (25.7-33.7); MCHC 32.3 g/dl (32.0-35.9); MEAN CELL VOLUME 82.3 fl (80-96); MEAN PLT VOLUME 8.2 fl (7.5-11.1); MONO % 7.8 % (3.8-10.2); NEUT % 73.3 % (42.8-82.8); PLATELET COUNT 447 K/MM3 (134-434); RBC 4.53 M/mm3 (4.00-5.60); WHITE BLOOD COUNT 8.9 K/mm3 (4.0-10.0)
--- NOTE | 2019-05-21 13:13 | EKG ---
Test Reason : Blood Pressure : / mmHG Vent. Rate : 072 BPM Atrial Rate : 072 BPM P-R Int : 182 ms QRS Dur : 094 ms QT Int : 378 ms P-R-T Axes : 058 000 -15 degrees QTc Int : 413 ms NORMAL SINUS RHYTHM POSSIBLE INFERIOR INFARCT (CITED ON OR BEFORE 30-APR-2019) ABNORMAL ECG WHEN COMPARED WITH ECG OF 30-APR-2019 03:34, NONSPECIFIC T WAVE ABNORMALITY NOW EVIDENT IN ANTEROLATERAL LEADS Confirmed by MD KYRIE, JOSE ([id number]) on 05/21/2019 1:13:04 PM Referred By: Confirmed By:JOSE MITTAL MD
[2019-05-21 13:14] LABS: ALBUMIN 3.4 g/dl (3.4-5.0); BILIRUBIN,TOTAL 0.7 mg/dL (0.2-1); BLOOD UREA NITROGEN 23.1 mg/dL (7-18); CALCIUM 8.6 mg/dL (8.5-10.1); CREATININE 1.9 mg/dL (0.55-1.3); POTASSIUM 5.4 mmol/L (3.5-5.1); TOT PROT 7.7 g/dl (6.4-8.2)
--- NOTE | 2019-05-21 14:10 | HP ---
Admitting History and Physical - Primary Care Physician PCP: Cole Dailey S - Admission Chief Complaint: Nausea and vomiting History of Present Illness: Patient is 59 y/o male with past medical history of CAD s/p stent placement x 5 , peripheral neuropathy, HTN, Type 2 DM, L hallux amputation 05/02/19. Patient presented to ER with complaints of nausea and vomiting since 05/04/19. Patient say since discharge home on 05/04/19 he has nausea and vomiting accompanied with mild epigastric pain. He states he feels as if something is stuck in his throat but denies dysphagia with solids or liquids. He says nausea is exacerbated with eating and relieved with vomiting. History Source: Patient Limitations to Obtaining History: No Limitations - Past Medical History Cardiovascular: Yes: CAD, HTN Endocrine: Yes: Diabetes Mellitus - Past Surgical History Past Surgical History: Yes: Amputation (L hallux), Stent - Smoking History Smoking history: Unknown if ever smoked Have you smoked in the past 12 months: No - Alcohol/Substance Use Hx Alcohol Use: No - Social History ADL: Independent History of Recent Travel: No Home Medications - Allergies Allergies/Adverse Reactions: Allergies Allergy/AdvReac Type Severity Reaction Status Date / Time No Known Allergies Allergy Verified 05/21/19 09:34 - Home Medications Home Medications: Ambulatory Orders Aspirin [ASA -] 81 mg PO DAILY #30 tab.chew 05/04/19 Atorvastatin Ca [Lipitor] 40 mg PO DAILY #30 tablet 05/04/19 Insulin Regular [Novolin R Vial -] 14 unit SQ DAILY 30 Days units 05/04/19 Insulin Sliding Scale [Novolog Vial Sliding Scale -] 1 vial SQ ACHS #2 units Lisinopril [Zestril] 2.5 mg PO DAILY #30 tablet 05/04/19 Mupirocin Ointment [Bactroban] 1 applic TP TID #1 tube 05/04/19 metFORMIN HCL [Metformin HCl] 500 mg PO BID 30 Days #60 tablet 05/04/19 Ondansetron HCl [Zofran] 4 mg PO TID PRN #12 tablet 05/07/19 Review of Systems - Review of Systems Constitutional: reports: Loss of Appetite, Weakness Eyes: reports: No Symptoms HENT: reports: No Symptoms Neck: reports: No Symptoms Cardiovascular: reports: No Symptoms Respiratory: reports: No Symptoms Gastrointestinal: reports: Abdominal Pain, Nausea, Vomiting Genitourinary: reports: No Symptoms Breasts: reports: No Symptoms Reported Neurological: reports: Dizziness Endocrine: reports: No Symptoms Hematology/Lymphatic: reports: No Symptoms Psychiatric: reports: No Symptoms Physical Examination Vital Signs: Vital Signs Temperature 98.1 F 05/21/19 09:37 Pulse Rate 73 05/21/19 09:37 Respiratory Rate 18 05/21/19 09:37 Blood Pressure 124/69 05/21/19 09:37 O2 Sat by Pulse Oximetry (%) 100 05/21/19 09:37 Constitutional: Yes: No Distress, Calm Eyes: Yes: Conjunctiva Clear HENT: Yes: Atraumatic Neck: Yes: Supple Cardiovascular: Yes: Regular Rate and Rhythm Respiratory: Yes: Regular, CTA Bilaterally Gastrointestinal: Yes: Normal Bowel Sounds, Soft, Tenderness, Epigastrium Musculoskeletal: Yes: WNL Extremities: Yes: Amputation (L great toe) Edema: No Wound/Incision: Yes: Dressing Dry and Intact Neurological: Yes: Alert, Oriented Psychiatric: Yes: Alert, Oriented Labs: CBC, BMP 05/21/19 12:14 05/21/19 12:14 Problem List - Problems (1) HTN (hypertension) Assessment/Plan: -Lisinopril -low Na diet Code(s): I10 - ESSENTIAL (PRIMARY) HYPERTENSION (2) CAD (coronary artery disease) Assessment/Plan: -s/p stent placement x 5 -troponin 0.11, repeat trop -Cardiology consult -Aspirin, Atorvastatin Code(s): I25.10 - ATHSCL HEART DISEASE OF [place] CORONARY ARTERY W/O ANG PCTRS (3) Nausea & vomiting Assessment/Plan: -Abdominal US -GI consult -zofran prn for nausea/vomiting -lipase 487 Code(s): R11.2 - NAUSEA WITH VOMITING, UNSPECIFIED (4) Diabetic infection of left foot Assessment/Plan: -s/p L great toe amputation 05/02/2019 -Podiatry consult -hyperbaric treatment -daily dressing changes Code(s): E11.628 - TYPE 2 DIABETES MELLITUS WITH OTHER SKIN COMPLICATIONS; L08.9 - LOCAL INFECTION OF THE SKIN AND SUBCUTANEOUS TISSUE, UNSP (5) Elevated troponin Assessment/Plan: -Tele monitoring -Trop 0.11, repeat troponin -Cardiology consult Code(s): R79.89 - OTHER SPECIFIED ABNORMAL FINDINGS OF BLOOD CHEMISTRY (6) TUSHAR (acute kidney injury) Assessment/Plan: -Renal consult -BUN/Cr 23.1/1.9 -IV hydration Code(s): N17.9 - ACUTE KIDNEY FAILURE, UNSPECIFIED (7) HLD (hyperlipidemia) Assessment/Plan: -Atorvastatin Code(s): E78.5 - HYPERLIPIDEMIA, UNSPECIFIED (8) Diabetes mellitus Assessment/Plan: -Metformin -ISS -HgA1c -diabetic diet Code(s): E11.9 - TYPE 2 DIABETES MELLITUS WITHOUT COMPLICATIONS Assessment/Plan see problem list dvt ppx
[2019-05-21] MEDS ORDERED: ONDANSETRON *ODT* 4 MG TABLET SL PRN (14:15)
--- NOTE | 2019-05-21 14:44 | PDOC ---
Documentation entered by Selwyn Mireles SCRIBE, acting as scribe for Aman Steward MD. Aman Steward MD: This documentation has been prepared by the Chi moore Daniel, SCRIBE, under my direction and personally reviewed by me in its entirety. I confirm that the documentation accurately reflects all work, treatment, procedures, and medical decision making performed by me. Attending Attestation - Resident Resident Name: ShonConsueloalexa - ED Attending Attestation I have performed the following: I have examined & evaluated the patient, The case was reviewed & discussed with the resident, I agree w/resident's findings & plan, Exceptions are as noted - HPI HPI: 05/21/19 13:11 The patient is a 59 year old male with a past medical history of CAD s/p 5 stents, left hallux osteomyelitis, peripheral neuropathy, HTN, and diabetes here today for evaluation of nausea. The patient reports that he has had nausea and NBNB vomiting since 05/04/2019 which worsened today. He states that his vomiting is intermittent and also notes a globus sensation that is worse when lying down and has been coughing to try to alleviate this sensation. On ROS, he also reports LSCP that is dull and non radiating intermittently. CP is not made better or worse with anything. Patient initially presented on 05/07/2019 for nausea and discharged with zofran. He was also recently admitted for osteomyelitis and had a left toe amputation. He presented today for treatment as the wound clinic sent him to the ED. Patient denies headache, lightheadedness. Denies fever, chills. Denies chest pain, shortness of breath. Denies diarrhea, abdominal pain. Allergies: NKA PCP: Cole Dailey - Physicial Exam PE: 05/21/19 13:11 Agree with resident exam - Medical Decision Making 59yo M with MMP presents to the ED with N/V, chest pain Pt is a poorly controlled diabetic DDx includes ACS vs gastropareisis vs pancreatitis Trop+ to 0.11, pt denies current CP, EKG unchanged - possibly demand 2/2 vomiting? Pt admitted to Dr. Clifford's service (case signed out to SULEMA Rincon) for further mgmt Case discussed in detail with admitting physician including history, physical exam and ancillary studies. Admitting physician has assumed care for the patient, will follow all pending diagnostics and will complete the evaluation and treatment.
--- NOTE | 2019-05-21 15:12 | CON.CARD ---
Consult Consult Specialty:: Cardiology Referred by:: Laura Rincon Reason for Consultation:: Abdominal pain, abnl ECG, indeterminate TnI - History of Present Illness Chief Complaint: Nausea History of Present Illness: 8M h/o DM, CAD s/p 5 stents 5-6 years ago, HTN , DM s/p LLE amputation in April. Over last 1-2 days, persistent nausea. Also having vague substernal cp in discrete area to left of sternal notch Denies exertional CP. Denies SOB, palps, edema, pnd, orthopnea, syncope. Reports having 5 stents. All placed at same time in [place] about 2 years ago. Anginal equivalent: severe nausea with syncope. Just moved to this area, does not follow with Cardio here. Of note, elevated Lipase. Indeterminate equivocal TnI with negative CK. ECG shows NSR with old IWMI pattern, TWI III, avF similar to prior - History Source History Provided By: Patient, Medical Record - Past Medical History Cardio/Vascular: Yes: CAD, HTN Pulmonary: No: Asthma, Bronchitis, Cancer, COPD, O2 Dependent, Pneumonia, Previously Intubated, Pulmonary Embolus, Pulmonary Fibrosis, Sleep Apnea, Other Gastrointestinal: No: Ascites, Cancer, Constipation, Crohn's Disease, Diverticulitis, Diverticulosis, Esophageal Varices, Gastritis, GERD, GI Bleed, Hemorrhoids, Hiatal Hernia, Inflamatory Bowel Disease, Irritable Bowel Disease, Pancreatitis, Peptic Ulcer Disease, Ulcerative Colitis, Other Hepatobiliary: No: Cirrhosis, Cholelithiasis, Cholecystitis, Choledocholithiasis , Hepatitis A, Hepatitis B, Hepatitis C, Other Renal/: No: Renal Failure, Renal Inusuff, BPH, Cancer, Hematuria, Hemodialysis , Neurogenic Bladder, Renal Calculi, UTI, Other Heme/Onc: No: Anemia, B12 Deficiency, Bleeding Disorder, Cancer, Current Chemotherapy, Current Radiation Therapy, Hemochromatosis, Hypercoaguable State, Myeloproliferative Synd, Sickle Cell Disease, Sickle Cell Trait, Thrombocytopenia, Other Infectious Disease: No: AIDS, C-Diff, Herpes Zoster, HIV, MRSA, STD's, Tuberculosis, VREF, Other Psych: No: Addictions, Anxiety, Bipolar, Depression, Panic, Psychosis, Schizophrenia, Other Musculoskeletal: No: Bursitis, Chronic low back pain, Hemiparesis, Hemiplegia, Osteoarthritis, Paraplegia, Other Rheumatology: No: Fibromyalgia, Gout, Lupus, Rheumatoid Arthritis, Sarcoidosis, Vasculitis, Other Endocrine: Yes: Diabetes Mellitus - Past Surgical History Past Surgical History: Yes: Amputation (L hallux), Stent - Alcohol/Substance Use Hx Alcohol Use: No - Smoking History Smoking history: Former smoker Have you smoked in the past 12 months: No - Social History ADL: Independent History of Recent Travel: No Home Medications - Allergies Allergies/Adverse Reactions: Allergies Allergy/AdvReac Type Severity Reaction Status Date / Time No Known Allergies Allergy Verified 05/21/19 09:34 - Home Medications Home Medications: Ambulatory Orders Aspirin [ASA -] 81 mg PO DAILY #30 tab.chew 05/04/19 Atorvastatin Ca [Lipitor] 40 mg PO DAILY #30 tablet 05/04/19 Insulin Regular [Novolin R Vial -] 14 unit SQ DAILY 30 Days units 05/04/19 Insulin Sliding Scale [Novolog Vial Sliding Scale -] 1 vial SQ ACHS #2 units Lisinopril [Zestril] 2.5 mg PO DAILY #30 tablet 05/04/19 Mupirocin Ointment [Bactroban] 1 applic TP TID #1 tube 05/04/19 metFORMIN HCL [Metformin HCl] 500 mg PO BID 30 Days #60 tablet 05/04/19 Ondansetron HCl [Zofran] 4 mg PO TID PRN #12 tablet 05/07/19 Family Medical History Family History: Unremarkable Review of Systems - Review of Systems Constitutional: reports: No Symptoms Eyes: reports: No Symptoms HENT: reports: No Symptoms Neck: reports: No Symptoms Cardiovascular: reports: No Symptoms Respiratory: reports: No Symptoms Gastrointestinal: reports: Nausea Genitourinary: reports: No Symptoms Musculoskeletal: reports: No Symptoms Integumentary: reports: No Symptoms Neurological: reports: No Symptoms Hematology/Lymphatic: reports: No Symptoms Psychiatric: reports: No Symptoms - Risk Factors Known Risk Factors: Yes: Diabetes Mellitus, Hypertension, Smoking, Other (Known CAD) Vital Signs: Vital Signs Temperature 98.1 F 05/21/19 09:37 Pulse Rate 73 05/21/19 09:37 Respiratory Rate 18 05/21/19 09:37 Blood Pressure 124/69 05/21/19 09:37 O2 Sat by Pulse Oximetry (%) 100 05/21/19 09:37 Constitutional: Yes: No Distress, Calm Eyes: Yes: Conjunctiva Clear, EOM Intact HENT: Yes: Atraumatic Neck: Yes: Trachea Midline Respiratory: Yes: CTA Bilaterally Gastrointestinal: Yes: Soft (NT, no rebound or guarding) Cardiovascular: Yes: Regular Rate and Rhythm JVD: No Carotid Bruit: No PMI: Non-Displaced Heart Sounds: Yes: S1, S2 (rrr, no m/r/g) Edema: No Peripheral Pulses WNL: Yes Neurological: Yes: Alert, Oriented ...Motor Strength: WNL Psychiatric: Yes: WNL - Other Data Labs, Other Data: CBC, BMP 05/21/19 12:14 05/21/19 12:14 Troponin, BNP 05/21/19 12:14 Troponin I 0.11 H Troponin, BNP 05/21/19 12:14 Troponin I 0.11 H Laboratory Tests 05/21/19 05/21/19 12:14 12:14 WBC 8.9 Hgb 12.0 Plt Count 447 H Sodium 136 Potassium 5.4 H BUN 23.1 H Creatinine 1.9 H Creatine Kinase 78 Troponin I 0.11 H Lipase 487 H See HPI Echo: Report Reviewed Prior Cardiac Procedures: PTCA with Stent Ejection Fraction %: LVEF > or = 40 % Imaging - Results Chest X-ray: Image Reviewed Ultrasound: Pending EKG: Image Reviewed Assessment/Plan DATA: EKG: sinus, low voltage, old inf infarct, nonspecific T wave changes, no sig change from prior echo 04/2019: nl LV/RV function, mildly dilated LA/RA, tr MR, tr TR Nausea: elevated lipase, normal transaminases and bili -GI consulted, abd US pending. -May need CT A/P CAD s/p stents, elevated trop: - no recent cardiac follow up - trop indeterminate range, similar to last admission. ECG stable. Do not suspect ACS at this point. - echo unremarkable - cont aspirin, started statin -Cycle enzymes, telemetry, serial ECGs smoking: - encouraged cessation DM: - manage per primary HTN: - stable, not on meds
[2019-05-21] MEDS ORDERED: metFORMIN HCL 500 MG TABLET (FP) PO SCH (16:30)
[2019-05-21] MEDS ORDERED: metFORMIN HCL 500 MG TABLET (FP) ONE (16:31)
[2019-05-21] MEDS: INSULIN SLIDING SCALE (NOVOLOG) 1 VIAL SQ SCH ×2 (16:45→21:59)
--- NOTE | 2019-05-21 17:56 | CONSULT ---
Consult Consult Specialty:: Nephrology Reason for Consultation:: TUSHAR - History of Present Illness Chief Complaint: nausea and vomiting History of Present Illness: Pt is a 59 year old male with pmhx of cad, htn, dm, and cardiac stents who presents to the ER with nausea and vomiting. He says that this has been happening for the alst 17 days. 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 He denies dysuria or hematuria. He denies fevers or chills. He has been taking advil daily. He denies history of kidney disease. - History Source History Provided By: Patient - Past Medical History Cardio/Vascular: Yes: CAD, HTN Endocrine: Yes: Diabetes Mellitus - Past Surgical History Past Surgical History: Yes: Amputation (L hallux), Stent - Alcohol/Substance Use Hx Alcohol Use: No - Smoking History Smoking history: Former smoker Have you smoked in the past 12 months: No - Social History ADL: Independent History of Recent Travel: No Home Medications - Allergies Allergies/Adverse Reactions: Allergies Allergy/AdvReac Type Severity Reaction Status Date / Time No Known Allergies Allergy Verified 05/21/19 09:34 - Home Medications Home Medications: Ambulatory Orders Aspirin [ASA -] 81 mg PO DAILY #30 tab.chew 05/04/19 Atorvastatin Ca [Lipitor] 40 mg PO DAILY #30 tablet 05/04/19 Insulin Regular [Novolin R Vial -] 14 unit SQ DAILY 30 Days units 05/04/19 Insulin Sliding Scale [Novolog Vial Sliding Scale -] 1 vial SQ ACHS #2 units Lisinopril [Zestril] 2.5 mg PO DAILY #30 tablet 05/04/19 Mupirocin Ointment [Bactroban] 1 applic TP TID #1 tube 05/04/19 metFORMIN HCL [Metformin HCl] 500 mg PO BID 30 Days #60 tablet 05/04/19 Ondansetron HCl [Zofran] 4 mg PO TID PRN #12 tablet 05/07/19 Family Medical History Family History: Denies Review of Systems - Review of Systems Constitutional: reports: Malaise Eyes: reports: No Symptoms HENT: reports: No Symptoms Neck: reports: No Symptoms Cardiovascular: reports: No Symptoms Respiratory: reports: No Symptoms Gastrointestinal: reports: Vomiting Genitourinary: reports: No Symptoms Musculoskeletal: reports: No Symptoms Integumentary: reports: No Symptoms Endocrine: reports: No Symptoms Hematology/Lymphatic: reports: No Symptoms Physical Exam Vital Signs: Vital Signs Temperature 98.3 F 05/21/19 15:00 Pulse Rate 85 05/21/19 15:00 Respiratory Rate 18 05/21/19 15:00 Blood Pressure 156/76 05/21/19 15:00 O2 Sat by Pulse Oximetry (%) 99 05/21/19 15:00 Constitutional: Yes: Calm Eyes: Yes: Conjunctiva Clear HENT: Yes: Atraumatic Cardiovascular: Yes: S1, S2 Respiratory: Yes: CTA Bilaterally Gastrointestinal: Yes: Soft Renal/: Yes: WNL Musculoskeletal: Yes: WNL Edema: No Neurological: Yes: Oriented Psychiatric: Yes: Oriented Labs: CBC, BMP 05/21/19 12:14 05/21/19 12:14 Laboratory Tests 05/21/19 12:14 Creatinine 1.9 H Imaging - Results Chest X-ray: Report Reviewed Ultrasound: Report Reviewed Problem List - Problems (1) TUSHAR (acute kidney injury) Code(s): N17.9 - ACUTE KIDNEY FAILURE, UNSPECIFIED (2) HTN (hypertension) Code(s): I10 - ESSENTIAL (PRIMARY) HYPERTENSION Assessment/Plan Current Medications Generic Name Dose Route Start Last Admin Trade Name Freq PRN Reason Stop Dose Admin Aspirin 81 mg 05/22/19 10:00 Asa - PO DAILY [facility] Atorvastatin Calcium 40 mg 05/22/19 22:00 Lipitor - PO HS [facility] Heparin Sodium (Porcine) 5,000 unit 05/21/19 22:00 Heparin - SQ BID [facility] Insulin Aspart 1 vial 05/21/19 16:30 05/21/19 16:45 Novolog Vial Sliding Scale - SQ Not Given ACHS [facility] Protocol Insulin Human Regular units 05/22/19 10:00 Novolin R Vial *For Ivpush Or Iv Drip Only* SQ DAILY [facility] Lisinopril 2.5 mg 05/22/19 10:00 Prinivil PO DAILY [facility] Metformin HCl 500 mg 05/21/19 16:30 05/21/19 16:44 Glucophage - PO 500 mg BIDAC DORIAN Administration Ondansetron HCl 4 mg 05/21/19 14:15 Zofran Odt - SL TID PRN NAUSEA AND/OR VOMITING Pantoprazole Sodium 40 mg 05/22/19 10:00 Protonix - PO DAILY DORIAN Impression 1. TUSHAR 2. hyperkalemia 3. vomiting 4. htn 5. hld Plan - hold lisinopril for now - stop metformin - monitor glucose on insulin - start fluids - will give a dose of lokelma - monitor potassium
[2019-05-21] MEDS ORDERED: SODIUM CHLORIDE 0.45% 1,000 ML IV SCH (18:15)
[2019-05-21] MEDS ORDERED: SODIUM ZIRCONIUM CYCLOSILICATE (LOKELMA) 5 GM PACKET PO ONE (18:15)
--- NOTE | 2019-05-21 19:48 | CON.GI ---
Consult Consult Specialty:: Gastroenterology Referred by:: Shanta Batres NP Reason for Consultation:: nausea and vomiting - History of Present Illness Chief Complaint: nausea and vomiting History of Present Illness: 59M diabetic underwent left great toe amputation of 05/02/19. Shortly after discharge he developed nausea, vomiting and inability to eat. He denies fever and abdominal pain. His sonogram is unremarkable. No past h/o GI problems. he has been moving his bowels well and denies diarrhea. He has never had a EGD or a colonoscopy. He recently returned from from his [place] where while hunting he stepped on an object that cut his left foot and led to this amputation. He has had diabetes for over 20 years and has stocking-glove neuropathy. 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: Peripheral Neuropathy Cardio/Vascular: Yes: CAD (coronary stenting 2018 in [place]), HTN, Hyperlipdemia, [place] ([place] in 2018 with post [place] stenting in [place]) Endocrine: Yes: Diabetes Mellitus - Past Surgical History Past Surgical History: Yes: Amputation (L hallux), Stent (coronary stenting 2017 ) - Alcohol/Substance Use Hx Alcohol Use: No History of Substance Use: reports: None - Smoking History Smoking history: Former smoker Have you smoked in the past 12 months: No If you are a former smoker, when did you quit?: 3 weeks ago - Social History Usual Living Arrangement: Alone () ADL: Independent 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year[place] age 32 History of Recent Travel: Yes ([place] several weeks ago) Home Medications - Allergies Allergies/Adverse Reactions: Allergies Allergy/AdvReac Type Severity Reaction Status Date / Time No Known Allergies Allergy Verified 05/21/19 09:34 - Home Medications Home Medications: Ambulatory Orders Aspirin [ASA -] 81 mg PO DAILY #30 tab.chew 05/04/19 Atorvastatin Ca [Lipitor] 40 mg PO DAILY #30 tablet 05/04/19 Insulin Regular [Novolin R Vial -] 14 unit SQ DAILY 30 Days units 05/04/19 Insulin Sliding Scale [Novolog Vial Sliding Scale -] 1 vial SQ ACHS #2 units Lisinopril [Zestril] 2.5 mg PO DAILY #30 tablet 05/04/19 Mupirocin Ointment [Bactroban] 1 applic TP TID #1 tube 05/04/19 metFORMIN HCL [Metformin HCl] 500 mg PO BID 30 Days #60 tablet 05/04/19 Ondansetron HCl [Zofran] 4 mg PO TID PRN #12 tablet 05/07/19 Family Medical History Family Hx Cardiac Disorders: Father ( 47 of [place]) Family Hx Diabetes: Father Review of Systems - Review of Systems Constitutional: reports: Loss of Appetite (for past week), Unintentional Wgt. Loss (since surgery) Eyes: reports: No Symptoms HENT: reports: No Symptoms Neck: reports: No Symptoms Cardiovascular: reports: No Symptoms Respiratory: reports: No Symptoms Gastrointestinal: reports: Nausea, Vomiting Genitourinary: reports: No Symptoms Integumentary: reports: Wound (left great toe amputation) Physical Exam-GI Vital Signs: Vital Signs Temperature 98.3 F 05/21/19 15:00 Pulse Rate 85 05/21/19 15:00 Respiratory Rate 18 05/21/19 15:00 Blood Pressure 156/76 05/21/19 15:00 O2 Sat by Pulse Oximetry (%) 99 05/21/19 15:00 CBC,CMP WBC 8.9 K/mm3 (4.0-10.0) 05/21/19 12:14 RBC 4.53 M/mm3 (4.00-5.60) 05/21/19 12:14 Hgb 12.0 GM/dL (11.7-16.9) 05/21/19 12:14 Hct 37.3 % (35.4-49) 05/21/19 12:14 MCV 82.3 fl (80-96) 05/21/19 12:14 MCH 26.6 pg (25.7-33.7) 05/21/19 12:14 MCHC 32.3 g/dl (32.0-35.9) 05/21/19 12:14 RDW 14.0 % (11.9-15.9) 05/21/19 12:14 Plt Count 447 K/MM3 (134-434) H 05/21/19 12:14 MPV 8.2 fl (7.5-11.1) 05/21/19 12:14 Absolute Neuts (auto) 6.5 K/mm3 (1.5-8.0) 05/21/19 12:14 Neutrophils % 73.3 % (42.8-82.8) 05/21/19 12:14 Lymphocytes % 15.0 % (8-40) D 05/21/19 12:14 Monocytes % 7.8 % (3.8-10.2) 05/21/19 12:14 Eosinophils % 2.7 % (0-4.5) D 05/21/19 12:14 Basophils % 1.2 % (0-2.0) 05/21/19 12:14 Nucleated RBC % 0 % (0-0) 05/21/19 12:14 Sodium 136 mmol/L (136-145) 05/21/19 12:14 Potassium 5.4 mmol/L (3.5-5.1) H 05/21/19 12:14 Chloride 105 mmol/L (98-107) 05/21/19 12:14 Carbon Dioxide 26 mmol/L (21-32) 05/21/19 12:14 Anion Gap 5 MMOL/L (8-16) L 05/21/19 12:14 BUN 23.1 mg/dL (7-18) H 05/21/19 12:14 Creatinine 1.9 mg/dL (0.55-1.3) H 05/21/19 12:14 Est GFR (CKD-EPI)AfAm 44.37 05/21/19 12:14 Est GFR (CKD-EPI)NonAf 38.28 05/21/19 12:14 POC Glucometer 81 UNITS (80-120) 05/21/19 16:36 Random Glucose 82 mg/dL (74-106) 05/21/19 12:14 Calcium 8.6 mg/dL (8.5-10.1) 05/21/19 12:14 Total Bilirubin 0.7 mg/dL (0.2-1) 05/21/19 12:14 AST 32 U/L (15-37) 05/21/19 12:14 ALT 24 U/L (13-61) 05/21/19 12:14 Alkaline Phosphatase 62 U/L (45-117) 05/21/19 12:14 Creatine Kinase 78 U/L (26-308) 05/21/19 12:14 Troponin I 0.12 ng/ml (0.00-0.05) H 05/21/19 16:42 Total Protein 7.7 g/dl (6.4-8.2) 05/21/19 12:14 Albumin 3.4 g/dl (3.4-5.0) 05/21/19 12:14 Lipase 487 U/L (73-393) H 05/21/19 12:14 Current Medications Generic Name Dose Route Start Last Admin Trade Name Enrrique PRN Reason Stop Dose Admin Aspirin 81 mg 05/22/19 10:00 Asa - PO DAILY [facility] Atorvastatin Calcium 40 mg 05/22/19 22:00 Lipitor - PO HS [facility] Heparin Sodium (Porcine) 5,000 unit 05/21/19 22:00 Heparin - SQ BID [facility] Sodium Chloride 1,000 mls @ 75 mls/hr 05/21/19 18:15 05/21/19 18:39 1/2 Normal Saline IV 75 mls/hr ASDIR [facility] Administration Insulin Aspart 1 vial 05/21/19 16:30 05/21/19 16:45 Novolog Vial Sliding Scale - SQ Not Given ACHS [facility] Protocol Insulin Human Regular units 05/22/19 10:00 Novolin R Vial *For Ivpush Or Iv Drip Only* SQ DAILY [facility] Ondansetron HCl 4 mg 05/21/19 14:15 Zofran Odt - SL TID PRN NAUSEA AND/OR VOMITING Pantoprazole Sodium 40 mg 05/22/19 10:00 Protonix - PO DAILY [facility] Constitutional: Yes: No Distress Eyes: Yes: Conjunctiva Clear HENT: Yes: Atraumatic Neck: Yes: Supple Cardiovascular: Yes: Regular Rate and Rhythm Respiratory: Yes: CTA Bilaterally Gastrointestinal Inspection: Yes: Distention (mildly distended) ...Auscultate: Yes: Hypoactive Bowel Sounds, Other (succusion splash is heard) ...Palpate: Yes: Soft, Other (nontender) ...Percussion: Yes: Tympanitic ...Rectal Exam: Yes: Deferred (as patient is in ER hallway) Extremities: Yes: Other (left hallux amputation) Edema: No Neurological: Yes: Alert, Oriented Labs: CBC, BMP 05/21/19 12:14 05/21/19 12:14 Imaging - Results Ultrasound: Report Reviewed ( Final Report US ABDOMEN US -LIMITED Show Printer-Friendly Version Patient Name: Shwetha Richards : Apr-1960 ID: [id number] Study Date: 21-May-2019 16:50 Chin Sampson Name: SHWETHA RICHARDS DEPARTMENT OF RADIOLOGY Phys: 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 Real time examination of the abdomen demonstrates the following: The gallbladder is normal in size and free of calculi with no evidence of intra or extrahepatic biliary duct dilatation. The liver is normal in size and texture with no intrahepatic masses seen. Hepatopedal flow is documented within the main portal vein. The pancreas is poorly visualized due to overlying bowel gas. There is no evidence of hydronephrosis or acute abnormalities of the right kidney. There is no evidence of AAA. The IVC is patent. IMPRESSION: Essentially normal abdominal sonogram. Reported By: Jm Estrella MD 05/21/191726 Technologist: Jovita Feliz Transcribed Date/Time: 05/21/191726 Health Service Coordinator: Jm Estrella Printed Date/Time: By: Signed by: Jm Estrella Signed on: 21-May-2019 17:28) Problem List - Problems (1) Nausea & vomiting Code(s): R11.2 - NAUSEA WITH VOMITING, UNSPECIFIED (2) Gastroparesis diabeticorum Code(s): E11.43 - TYPE 2 DIABETES W DIABETIC AUTONOMIC (POLY)NEUROPATHY; K31.84 - GASTROPARESIS (3) 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 Code(s): E13.40 - OTH DIABETES MELLITUS WITH DIABETIC NEUROPATHY, UNSPECIFIED (4) TUSHAR (acute kidney injury) Code(s): N17.9 - ACUTE KIDNEY FAILURE, UNSPECIFIED (5) CAD (coronary artery disease) Code(s): I25.10 - ATHSCL HEART DISEASE OF [place] CORONARY ARTERY W/O ANG PCTRS (6) Diabetes mellitus Code(s): E11.9 - TYPE 2 DIABETES MELLITUS WITHOUT COMPLICATIONS (7) HLD (hyperlipidemia) Code(s): E78.5 - HYPERLIPIDEMIA, UNSPECIFIED (8) HTN (hypertension) Code(s): I10 - ESSENTIAL (PRIMARY) HYPERTENSION (9) Osteomyelitis Code(s): M86.9 - OSTEOMYELITIS, UNSPECIFIED Qualifiers: Osteomyelitis type: other Osteomyelitis location: foot Laterality: unspecified laterality Qualified Code(s): M86.8X7 - Other osteomyelitis, ankle and foot (10) Diabetic infection of left foot Code(s): E11.628 - TYPE 2 DIABETES MELLITUS WITH OTHER SKIN COMPLICATIONS; L08.9 - LOCAL INFECTION OF THE SKIN AND SUBCUTANEOUS TISSUE, UNSP (11) Osteomyelitis Code(s): M86.9 - OSTEOMYELITIS, UNSPECIFIED (12) Anemia Code(s): D64.9 - ANEMIA, UNSPECIFIED Assessment/Plan Assessment: - Given the lack of fever and pain, the succusion splash and the recent left hallux surgery for osteomyelitis I believe that Susie ( this is his first name) have diabetic gastroparesis. This supported by his diabetic neuropathy and duration of diabetes exceeding 10 years. I do not think that he has pancreatitis and attribute his minimally elevated lipase to the gastroparesis and vomiting - Susie is due for colon cancer screening and I informed him of the need for a colonoscopy when his clinical condition permits as an outpatient - Anemia- after colonoscopy he may need an EGD as well. Plan: -- FUA -- Reglan IVPB -- PPI empirically until stool for occult blood returns -- Anemia studies
[2019-05-21] MEDS ORDERED: METOCLOPRAMIDE HCL INJECTION 10 MG/2 ML VIAL IVPUSH SCH (20:15)
[2019-05-21] MEDS ORDERED: METOCLOPRAMIDE HCL INJECTION 10 MG/2 ML VIAL ONE (21:44)
[2019-05-21] MEDS: METOCLOPRAMIDE HCL INJECTION 10 MG/2 ML VIAL IVPUSH SCH (22:01)
[2019-05-21] MEDS ORDERED: HEPARIN NA (PORCINE) 5,000 UNITS/ML 1ML VIAL ONE (22:14)
[2019-05-21] MEDS: HEPARIN NA (PORCINE) 5,000 UNITS/ML 1ML VIAL SQ SCH (22:34)
[2019-05-22] MEDS: METOCLOPRAMIDE HCL INJECTION 10 MG/2 ML VIAL IVPUSH SCH ×4 (02:53→21:25)
[2019-05-22 03:36] VITALS: BMI 26.1
[2019-05-22] MEDS ORDERED: oxyCODONE HCL 5 MG TABLET PO ONE (05:00)
[2019-05-22] MEDS: INSULIN SLIDING SCALE (NOVOLOG) 1 VIAL SQ SCH ×4 (06:07→21:31)
[2019-05-22 08:11] LABS: BASO % 0.7 % (0-2.0); EOS % 3.9 % (0-4.5); HEMATOCRIT 32.7 % (35.4-49); HEMOGLOBIN 10.8 GM/dL (11.7-16.9); LYMPH % 16.8 % (8-40); MCH 26.7 pg (25.7-33.7); MEAN CELL VOLUME 81.1 fl (80-96); MEAN PLT VOLUME 8.2 fl (7.5-11.1); MONO % 7.1 % (3.8-10.2); NEUT % 71.5 % (42.8-82.8); PLATELET COUNT 379 K/MM3 (134-434); RBC 4.03 M/mm3 (4.00-5.60); RDW 13.5 % (11.9-15.9); WHITE BLOOD COUNT 6.5 K/mm3 (4.0-10.0)
[2019-05-22 08:40] LABS: ALBUMIN 3.2 g/dl (3.4-5.0); BILIRUBIN,TOTAL 0.6 mg/dL (0.2-1); BLOOD UREA NITROGEN 21.4 mg/dL (7-18); CALCIUM 8.5 mg/dL (8.5-10.1); CREATININE 1.8 mg/dL (0.55-1.3); MAGNESIUM 1.5 mg/dL (1.8-2.4); PHOSPHOROUS 3.3 mg/dL (2.5-4.9); TOT PROT 7.2 g/dl (6.4-8.2)
[2019-05-22] MEDS ORDERED: INSULIN REGULAR HUMAN 100 UNITS/ML *VIAL SQ SCH (10:00)
[2019-05-22] MEDS ORDERED: LISINOPRIL 5 MG TABLET (FP) PO SCH (10:00)
[2019-05-22] MEDS: ASPIRIN 81 MG CHEWABLE TABLETS PO SCH (10:04)
[2019-05-22] MEDS: PANTOPRAZOLE 40 MG TABLET PO SCH (10:04)
[2019-05-22] MEDS: HEPARIN NA (PORCINE) 5,000 UNITS/ML 1ML VIAL SQ SCH ×2 (10:04→21:25)
[2019-05-22] MEDS ORDERED: LISINOPRIL 5 MG TABLET (FP) PO ONE (10:30)
--- NOTE | 2019-05-22 11:46 | PN ---
Progress Note, Physician Chief Complaint: Elevated Troponin DM Nausea, Vomiting History of Present Illness: Previous notes and events reviewed awake and alert NAD denies further episode of nausea, vomiting troponin 0.11~0.12~0.11 denies complaints of chest pain, SOB - Current Medication List Current Medications: Active Medications Aspirin (Asa -) 81 mg PO DAILY [facility] Last Admin: 05/22/19 10:04 Dose: 81 mg Atorvastatin Calcium (Lipitor -) 40 mg PO HS [facility] Heparin Sodium (Porcine) (Heparin -) 5,000 unit SQ BID [facility] Last Admin: 05/22/19 10:04 Dose: 5,000 unit Sodium Chloride (1/2 Normal Saline) 1,000 mls @ 75 mls/hr IV ASDIR [facility] Last Admin: 05/21/19 18:39 Dose: 75 mls/hr Insulin Aspart (Novolog Vial Sliding Scale -) 1 vial SQ ACHS [facility]; Protocol Last Admin: 05/22/19 06:07 Dose: Not Given Insulin Human Regular (Novolin R Vial *For Ivpush Or Iv Drip Only*) units SQ DAILY [facility] Metoclopramide HCl (Reglan Injection -) 10 mg IVPUSH Q6H-IV [facility] Last Admin: 05/22/19 10:03 Dose: Not Given Ondansetron HCl (Zofran Odt -) 4 mg SL TID PRN PRN Reason: NAUSEA AND/OR VOMITING Pantoprazole Sodium (Protonix -) 40 mg PO DAILY [facility] Last Admin: 05/22/19 10:04 Dose: 40 mg - Objective Vital Signs: Vital Signs Temperature 98.5 F 05/22/19 10:00 Pulse Rate 65 05/22/19 10:00 Respiratory Rate 20 05/22/19 10:00 Blood Pressure 165/83 05/22/19 10:00 O2 Sat by Pulse Oximetry (%) 100 05/22/19 09:00 Constitutional: Yes: No Distress, Calm Eyes: Yes: Conjunctiva Clear HENT: Yes: Atraumatic Cardiovascular: Yes: Regular Rate and Rhythm Respiratory: Yes: Regular, CTA Bilaterally Gastrointestinal: Yes: Normal Bowel Sounds, Soft Musculoskeletal: Yes: WNL Extremities: Yes: WNL Edema: No Wound/Incision: Yes: Dressing Dry and Intact Neurological: Yes: Alert, Oriented Psychiatric: Yes: Alert, Oriented Labs: CBC, BMP 05/22/19 06:45 05/22/19 06:45 Problem List - Problems (1) HTN (hypertension) Assessment/Plan: -Lisinopril -low Na diet Code(s): I10 - ESSENTIAL (PRIMARY) HYPERTENSION (2) CAD (coronary artery disease) Assessment/Plan: -s/p stent placement x 5 -troponin 0.11, 0.12, 0.11 -Cardiology on board -Nuclear Stress Test -Aspirin, Atorvastatin Code(s): I25.10 - ATHSCL HEART DISEASE OF [place] CORONARY ARTERY W/O ANG PCTRS (3) Nausea & vomiting Assessment/Plan: -Abdominal US shows normal abdominal sonogram -FUA shows large amount of retained stool compatible with constipation, no sign of fecal impaction -GI on board -zofran prn for nausea/vomiting -lipase 487 Code(s): R11.2 - NAUSEA WITH VOMITING, UNSPECIFIED (4) Diabetic infection of left foot Assessment/Plan: -s/p L great toe amputation 05/02/2019 -Podiatry consult -hyperbaric treatment -daily dressing changes Code(s): E11.628 - TYPE 2 DIABETES MELLITUS WITH OTHER SKIN COMPLICATIONS; L08.9 - LOCAL INFECTION OF THE SKIN AND SUBCUTANEOUS TISSUE, UNSP (5) Elevated troponin Assessment/Plan: -Tele monitoring -Trop 0.11,0.12, 0.11 -pending Nuclear Stress test -Cardiology on board Code(s): R79.89 - OTHER SPECIFIED ABNORMAL FINDINGS OF BLOOD CHEMISTRY (6) TUSHAR (acute kidney injury) Assessment/Plan: -Renal consult -BUN/Cr 21.4/1.8 -IV hydration Code(s): N17.9 - ACUTE KIDNEY FAILURE, UNSPECIFIED (7) HLD (hyperlipidemia) Assessment/Plan: -Atorvastatin Code(s): E78.5 - HYPERLIPIDEMIA, UNSPECIFIED (8) Diabetes mellitus Assessment/Plan: -Metformin held due to renal function -ISS -HgA1c 10.9% -diabetic diet -Endocrinology consult -dietary consult Code(s): E11.9 - TYPE 2 DIABETES MELLITUS WITHOUT COMPLICATIONS Assessment/Plan see problem list dvt ppx
--- NOTE | 2019-05-22 11:50 | PN.GI ---
GI Progress Note Subjective: GI NOte: No further vomiting. Tolerated liquid breakfast. Has some residual nausea but is willing to try solids. FUA reveals retained stool but no SBO - Objective Vital Signs: Vital Signs Temperature 98.5 F 05/22/19 10:00 Pulse Rate 65 05/22/19 10:00 Respiratory Rate 20 05/22/19 10:00 Blood Pressure 165/83 05/22/19 10:00 O2 Sat by Pulse Oximetry (%) 100 05/22/19 09:00 Laboratory Tests 04/30/19 05/01/19 05/07/19 03:40 07:24 15:57 WBC Hgb 12.6 10.5 L 11.5 L Iron TIBC Iron Saturation Unsaturated IBC Ferritin Vitamin B12 Serum Folate 05/21/19 05/22/19 05/22/19 12:14 06:45 06:45 WBC 8.9 6.5 Hgb 12.0 10.8 L Iron TIBC Iron Saturation Unsaturated IBC Ferritin Vitamin B12 Serum Folate 17 05/22/19 06:45 WBC Hgb Iron 83 TIBC 239 L Iron Saturation 34 Unsaturated IBC 156 L Ferritin 217.6 Vitamin B12 517 Serum Folate Constitutional: No Distress ...Auscultate: Yes: Normoactive Bowel Sounds ...Palpate: Yes: Soft, Other (nontender) Labs: CBC, BMP 05/22/19 06:45 05/22/19 06:45 Assessment/Plan Assessment: - Diabetic gastroparesis. This supported by his elevated HbA1C. - Susie is due for colon cancer screening and I informed him of the need for a colonoscopy when his clinical condition permits as an outpatient . I gave him my business card. - Anemia- after colonoscopy he may need an EGD as well. Plan: -- Trial of soft diet -- Miralax -- Reglan IVPB -- PPI empirically until stool for occult blood returns Problem List - Problems (1) Nausea & vomiting Code(s): R11.2 - NAUSEA WITH VOMITING, UNSPECIFIED (2) Gastroparesis diabeticorum Code(s): E11.43 - TYPE 2 DIABETES W DIABETIC AUTONOMIC (POLY)NEUROPATHY; K31.84 - GASTROPARESIS (3) 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 Code(s): E13.40 - OTH DIABETES MELLITUS WITH DIABETIC NEUROPATHY, UNSPECIFIED (4) TUSHAR (acute kidney injury) Code(s): N17.9 - ACUTE KIDNEY FAILURE, UNSPECIFIED (5) CAD (coronary artery disease) Code(s): I25.10 - ATHSCL HEART DISEASE OF [place] CORONARY ARTERY W/O ANG PCTRS (6) Diabetes mellitus Code(s): E11.9 - TYPE 2 DIABETES MELLITUS WITHOUT COMPLICATIONS (7) HLD (hyperlipidemia) Code(s): E78.5 - HYPERLIPIDEMIA, UNSPECIFIED (8) HTN (hypertension) Code(s): I10 - ESSENTIAL (PRIMARY) HYPERTENSION (9) Osteomyelitis Code(s): M86.9 - OSTEOMYELITIS, UNSPECIFIED Qualifiers: Osteomyelitis type: other Osteomyelitis location: foot Laterality: unspecified laterality Qualified Code(s): M86.8X7 - Other osteomyelitis, ankle and foot (10) Diabetic infection of left foot Code(s): E11.628 - TYPE 2 DIABETES MELLITUS WITH OTHER SKIN COMPLICATIONS; L08.9 - LOCAL INFECTION OF THE SKIN AND SUBCUTANEOUS TISSUE, UNSP (11) Osteomyelitis Code(s): M86.9 - OSTEOMYELITIS, UNSPECIFIED (12) Anemia Code(s): D64.9 - ANEMIA, UNSPECIFIED
--- NOTE | 2019-05-22 12:29 | PN ---
Progress Note (short form) - Note Progress Note: s: intermittent chest pain. no palps, dizziness, dyspnea. nausea improving. Current Medications Aspirin (Asa -) 81 mg PO DAILY [facility] Last Admin: 05/22/19 10:04 Dose: 81 mg Atorvastatin Calcium (Lipitor -) 40 mg PO HS [facility] Heparin Sodium (Porcine) (Heparin -) 5,000 unit SQ BID [facility] Last Admin: 05/22/19 10:04 Dose: 5,000 unit Sodium Chloride (1/2 Normal Saline) 1,000 mls @ 75 mls/hr IV ASDIR [facility] Last Admin: 05/21/19 18:39 Dose: 75 mls/hr Insulin Aspart (Novolog Vial Sliding Scale -) 1 vial SQ ACHS [facility]; Protocol Last Admin: 05/22/19 06:07 Dose: Not Given Insulin Human Regular (Novolin R Vial *For Ivpush Or Iv Drip Only*) units SQ DAILY [facility] Lisinopril (Prinivil) 2.5 mg PO DAILY [facility] Metoclopramide HCl (Reglan Injection -) 10 mg IVPUSH Q6H-IV [facility] Last Admin: 05/22/19 10:03 Dose: Not Given Ondansetron HCl (Zofran Odt -) 4 mg SL TID PRN PRN Reason: NAUSEA AND/OR VOMITING Pantoprazole Sodium (Protonix -) 40 mg PO DAILY [facility] Last Admin: 05/22/19 10:04 Dose: 40 mg Polyethylene Glycol (Miralax (For Daily Use) -) 17 gm PO TID [facility] Vital Signs Period Temp Pulse Resp BP Sys/[place] Pulse Ox Last 24 Hr 97.8 F-98.5 F 65-92 18-20 147-165/73-90 98-100 Constitutional: Yes: No Distress, Calm Eyes: Yes: Conjunctiva Clear, EOM Intact HENT: Yes: Atraumatic Neck: Yes: Trachea Midline Respiratory: Yes: CTA Bilaterally Gastrointestinal: Yes: Soft (NT, no rebound or guarding) Cardiovascular: Yes: Regular Rate and Rhythm JVD: No Carotid Bruit: No PMI: Non-Displaced Heart Sounds: Yes: S1, S2 (rrr, no m/r/g) Edema: No Peripheral Pulses WNL: Yes Neurological: Yes: Alert, Oriented ...Motor Strength: WNL Psychiatric: Yes: WNL DATA: EKG: sinus, low voltage, old inf infarct, nonspecific T wave changes, no sig change from prior echo 04/2019: nl LV/RV function, mildly dilated LA/RA, tr MR, tr TR Nausea: elevated lipase, normal transaminases and bili - manage per GI CAD s/p stents, elevated trop: - no recent cardiac follow up - trop indeterminate range, similar to last admission. ECG stable - echo unremarkable - cont aspirin, started statin - unlikely ACS - epigastric pain more likely 2/2 diabetic gastroparesis, however given hx will eval with mibi smoking: - encouraged cessation DM: - manage per primary HTN: - stable, not on meds
--- NOTE | 2019-05-22 12:44 | PN ---
Progress Note, Physician History of Present Illness: Pt seen and examined at bedside. He is awaek and alert. He has not vomited but did feel nausea after breakfast. - Current Medication List Current Medications: Active Medications Aspirin (Asa -) 81 mg PO DAILY [facility] Last Admin: 05/22/19 10:04 Dose: 81 mg Atorvastatin Calcium (Lipitor -) 40 mg PO HS [facility] Heparin Sodium (Porcine) (Heparin -) 5,000 unit SQ BID [facility] Last Admin: 05/22/19 10:04 Dose: 5,000 unit Sodium Chloride (1/2 Normal Saline) 1,000 mls @ 75 mls/hr IV ASDIR [facility] Last Admin: 05/21/19 18:39 Dose: 75 mls/hr Insulin Aspart (Novolog Vial Sliding Scale -) 1 vial SQ ACHS [facility]; Protocol Last Admin: 05/22/19 06:07 Dose: Not Given Insulin Human Regular (Novolin R Vial *For Ivpush Or Iv Drip Only*) units SQ DAILY [facility] Lisinopril (Prinivil) 2.5 mg PO DAILY [facility] Metoclopramide HCl (Reglan Injection -) 10 mg IVPUSH Q6H-IV [facility] Last Admin: 05/22/19 10:03 Dose: Not Given Ondansetron HCl (Zofran Odt -) 4 mg SL TID PRN PRN Reason: NAUSEA AND/OR VOMITING Pantoprazole Sodium (Protonix -) 40 mg PO DAILY [facility] Last Admin: 05/22/19 10:04 Dose: 40 mg Polyethylene Glycol (Miralax (For Daily Use) -) 17 gm PO TID [facility] - Objective Vital Signs: Vital Signs Temperature 98.5 F 05/22/19 10:00 Pulse Rate 65 05/22/19 10:00 Respiratory Rate 20 05/22/19 10:00 Blood Pressure 165/83 05/22/19 10:00 O2 Sat by Pulse Oximetry (%) 100 05/22/19 09:00 Constitutional: Yes: Calm Eyes: Yes: Conjunctiva Clear HENT: Yes: Atraumatic Neck: Yes: Supple Cardiovascular: Yes: S1, S2 Respiratory: Yes: CTA Bilaterally Gastrointestinal: Yes: Soft Genitourinary: Yes: WNL Musculoskeletal: Yes: WNL Edema: No Neurological: Yes: Oriented Psychiatric: Yes: Oriented Labs: CBC, BMP 05/22/19 06:45 05/22/19 06:45 Problem List - Problems (1) TUSHAR (acute kidney injury) Code(s): N17.9 - ACUTE KIDNEY FAILURE, UNSPECIFIED (2) HTN (hypertension) Code(s): I10 - ESSENTIAL (PRIMARY) HYPERTENSION Assessment/Plan Current Medications Generic Name Dose Route Start Last Admin Trade Name Freq PRN Reason Stop Dose Admin Aspirin 81 mg 05/22/19 10:00 05/22/19 10:04 Asa - PO 81 mg DAILY [facility] Administration Atorvastatin Calcium 40 mg 05/22/19 22:00 Lipitor - PO HS [facility] Heparin Sodium (Porcine) 5,000 unit 05/21/19 22:00 05/22/19 10:04 Heparin - SQ 5,000 unit BID [facility] Administration Sodium Chloride 1,000 mls @ 75 mls/hr 05/21/19 18:15 05/21/19 18:39 1/2 Normal Saline IV 75 mls/hr ASDIR [facility] Administration Insulin Aspart 1 vial 05/21/19 16:30 05/22/19 06:07 Novolog Vial Sliding Scale - SQ Not Given ACHS [facility] Protocol Insulin Human Regular units 05/22/19 10:00 Novolin R Vial *For Ivpush Or Iv Drip Only* SQ DAILY [facility] Lisinopril 2.5 mg 05/23/19 10:00 Prinivil PO DAILY [facility] Metoclopramide HCl 10 mg 05/21/19 20:19 05/22/19 10:03 Reglan Injection - IVPUSH Not Given Q6H-IV [facility] Ondansetron HCl 4 mg 05/21/19 14:15 Zofran Odt - SL TID PRN NAUSEA AND/OR VOMITING Pantoprazole Sodium 40 mg 05/22/19 10:00 05/22/19 10:04 Protonix - PO 40 mg DAILY [facility] Administration Polyethylene Glycol 17 gm 05/22/19 14:00 Miralax (For Daily Use) - PO TID [facility] Impression 1. TUSHAR 2. hyperkalemia 3. vomiting 4. htn 5. hld Plan - potassium improved - will decrease rate of fluids - repeat labs in am - pt tolerated breakfast without vomiting - monitor potassium - follow urine studies
[2019-05-22] MEDS: SODIUM CHLORIDE 0.45% 1,000 ML IV SCH (12:50)
[2019-05-22] MEDS: POLYETHYLENE GLYCOL 3350 119 GM BTL PO SCH ×2 (15:20→21:24)
--- NOTE | 2019-05-22 15:53 | CONSULT ---
Consult Consult Specialty:: podiatry Reason for Consultation:: s/p amputaoitn - History of Present Illness History of Present Illness: 59 y/o male s/p hallux amputation which is healing well seen at bedside. Is being seen by my parnter now in the wound care center for continued healing after th eamputation. Been doing well but states that he has had stomach upset and not been able to tolerate any diet recently so was sent in to the hospital for further workup. 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: Peripheral Neuropathy Cardio/Vascular: Yes: CAD, HTN Pulmonary: No: Asthma, Bronchitis, Cancer, COPD, O2 Dependent, Pneumonia, Previously Intubated, Pulmonary Embolus, Pulmonary Fibrosis, Sleep Apnea, Other Gastrointestinal: No: Ascites, Cancer, Constipation, Crohn's Disease, Diverticulitis, Diverticulosis, Esophageal Varices, Gastritis, GERD, GI Bleed, Hemorrhoids, Hiatal Hernia, Inflamatory Bowel Disease, Irritable Bowel Disease, Pancreatitis, Peptic Ulcer Disease, Ulcerative Colitis, Other Hepatobiliary: No: Cirrhosis, Cholelithiasis, Cholecystitis, Choledocholithiasis , Hepatitis A, Hepatitis B, Hepatitis C, Other Renal/: No: Renal Failure, Renal Inusuff, BPH, Cancer, Hematuria, Hemodialysis , Neurogenic Bladder, Renal Calculi, UTI, Other Infectious Disease: No: AIDS, C-Diff, Herpes Zoster, HIV, MRSA, STD's, Tuberculosis, VREF, Other Psych: No: Addictions, Anxiety, Bipolar, Depression, Panic, Psychosis, Schizophrenia, Other Musculoskeletal: No: Bursitis, Chronic low back pain, Hemiparesis, Hemiplegia, Osteoarthritis, Paraplegia, Other Rheumatology: No: Fibromyalgia, Gout, Lupus, Rheumatoid Arthritis, Sarcoidosis, Vasculitis, Other Endocrine: Yes: Diabetes Mellitus - Past Surgical History Past Surgical History: Yes: Amputation (L hallux), Stent - Alcohol/Substance Use Hx Alcohol Use: No History of Substance Use: reports: None - Smoking History Smoking history: Unknown if ever smoked Have you smoked in the past 12 months: No If you are a former smoker, when did you quit?: 3 weeks ago - Social History Usual Living Arrangement: Alone () ADL: Independent 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 History of Recent Travel: No Home Medications - Allergies Allergies/Adverse Reactions: Allergies Allergy/AdvReac Type Severity Reaction Status Date / Time No Known Allergies Allergy Verified 05/21/19 09:34 - Home Medications Home Medications: Ambulatory Orders Aspirin [ASA -] 81 mg PO DAILY #30 tab.chew 05/04/19 Atorvastatin Ca [Lipitor] 40 mg PO DAILY #30 tablet 05/04/19 Insulin Regular [Novolin R Vial -] 14 unit SQ DAILY 30 Days units 05/04/19 Insulin Sliding Scale [Novolog Vial Sliding Scale -] 1 vial SQ ACHS #2 units Lisinopril [Zestril] 2.5 mg PO DAILY #30 tablet 05/04/19 Mupirocin Ointment [Bactroban] 1 applic TP TID #1 tube 05/04/19 metFORMIN HCL [Metformin HCl] 500 mg PO BID 30 Days #60 tablet 05/04/19 Ondansetron HCl [Zofran] 4 mg PO TID PRN #12 tablet 05/07/19 Review of Systems - Review of Systems Musculoskeletal: reports: Other (amputation site with sutures intact, no necrosis, no erythema, no edema, no drainge, healing well, no signs of infection.) Physical Exam Vital Signs: Vital Signs Temperature 98.5 F 05/22/19 10:00 Pulse Rate 65 05/22/19 10:00 Respiratory Rate 20 05/22/19 10:00 Blood Pressure 165/83 05/22/19 10:00 O2 Sat by Pulse Oximetry (%) 100 05/22/19 09:00 Labs: CBC, BMP 05/22/19 06:45 05/22/19 06:45 Assessment/Plan 59 y/o sp hallux amp evaluated and reviewed while admitted can change dressing every 3rd day with xeroform and DSD to the surgical site no podiatric intervention needed for now will f/u at the wound care center upon d/c and will cont to follow as outpatient thank you for this consult.
[2019-05-22 17:11] LABS: URINE APPEARANCE CLEAR; URINE BILIRUBIN NEGATIVE (NEGATIVE); URINE COLOR YELLOW; URINE GLUCOSE (UA) NEGATIVE (NEGATIVE); URINE KETONE NEGATIVE (NEGATIVE); URINE LEUK ESTERASE NEGATIVE (NEGATIVE); URINE NITRITE NEGATIVE (NEGATIVE); URINE PROTEIN NEGATIVE (NEGATIVE); URINE UROBILINOGEN 0.2 mg/dL (0.2-1.0)
[2019-05-22] MEDS ORDERED: ACETAMINOPHEN 325 MG TABLET (FP) PO ONE (20:52)
[2019-05-22] MEDS: ATORVASTATIN CA 40 MG TABLET (FP) PO SCH (21:22)
[2019-05-22] MEDS: MELATONIN 5 MG TABLETS PO PRN (22:07)
--- NOTE | 2019-05-22 23:28 | CONSULT ---
Consult Consult Specialty:: endocrine Referred by:: catia linda Reason for Consultation:: dmt2 uncontrolled - History of Present Illness Chief Complaint: high sugars History of Present Illness: 59 y/o male with past medical history of DMT2,Diabetic neuropathy,ckd,CAD s/p stent placement x 5, peripheral neuropathy, HTN, L hallux amputation 05/02/19. admitted with nausea and vomiting since 05/04/19. Patient say since discharge home on 05/04/19 he has nausea and vomiting accompanied with mild epigastric pain. He states he feels as if something is stuck in his throat but denies dysphagia with solids or liquids. He says nausea is exacerbated with eating and relieved with vomiting,has had difficulty with diet and diabetic control of sugars. 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: Peripheral Neuropathy Cardio/Vascular: Yes: CAD, HTN Pulmonary: No: Asthma, Bronchitis, Cancer, COPD, O2 Dependent, Pneumonia, Previously Intubated, Pulmonary Embolus, Pulmonary Fibrosis, Sleep Apnea, Other Gastrointestinal: No: Ascites, Cancer, Constipation, Crohn's Disease, Diverticulitis, Diverticulosis, Esophageal Varices, Gastritis, GERD, GI Bleed, Hemorrhoids, Hiatal Hernia, Inflamatory Bowel Disease, Irritable Bowel Disease, Pancreatitis, Peptic Ulcer Disease, Ulcerative Colitis, Other Hepatobiliary: No: Cirrhosis, Cholelithiasis, Cholecystitis, Choledocholithiasis , Hepatitis A, Hepatitis B, Hepatitis C, Other Renal/: No: Renal Failure, Renal Inusuff, BPH, Cancer, Hematuria, Hemodialysis , Neurogenic Bladder, Renal Calculi, UTI, Other Infectious Disease: No: AIDS, C-Diff, Herpes Zoster, HIV, MRSA, STD's, Tuberculosis, VREF, Other Psych: No: Addictions, Anxiety, Bipolar, Depression, Panic, Psychosis, Schizophrenia, Other Musculoskeletal: No: Bursitis, Chronic low back pain, Hemiparesis, Hemiplegia, Osteoarthritis, Paraplegia, Other Rheumatology: No: Fibromyalgia, Gout, Lupus, Rheumatoid Arthritis, Sarcoidosis, Vasculitis, Other Endocrine: Yes: Diabetes Mellitus - Past Surgical History Past Surgical History: Yes: Amputation (L hallux), Stent - Alcohol/Substance Use Hx Alcohol Use: No History of Substance Use: reports: None - Smoking History Smoking history: Unknown if ever smoked Have you smoked in the past 12 months: No If you are a former smoker, when did you quit?: 3 weeks ago - Social History Usual Living Arrangement: Alone () ADL: Independent 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 History of Recent Travel: No Home Medications - Allergies Allergies/Adverse Reactions: Allergies Allergy/AdvReac Type Severity Reaction Status Date / Time No Known Allergies Allergy Verified 05/21/19 09:34 - Home Medications Home Medications: Ambulatory Orders Aspirin [ASA -] 81 mg PO DAILY #30 tab.chew 05/04/19 Atorvastatin Ca [Lipitor] 40 mg PO DAILY #30 tablet 05/04/19 Insulin Regular [Novolin R Vial -] 14 unit SQ DAILY 30 Days units 05/04/19 Insulin Sliding Scale [Novolog Vial Sliding Scale -] 1 vial SQ ACHS #2 units Lisinopril [Zestril] 2.5 mg PO DAILY #30 tablet 05/04/19 Mupirocin Ointment [Bactroban] 1 applic TP TID #1 tube 05/04/19 metFORMIN HCL [Metformin HCl] 500 mg PO BID 30 Days #60 tablet 05/04/19 Ondansetron HCl [Zofran] 4 mg PO TID PRN #12 tablet 05/07/19 Review of Systems - Review of Systems Constitutional: reports: Lethargy, Unintentional Wgt. Loss Eyes: reports: Blurred Vision HENT: reports: Difficult Swallowing Neck: reports: No Symptoms Cardiovascular: reports: No Symptoms Respiratory: reports: No Symptoms Gastrointestinal: reports: Bloating, Constipation Breasts: reports: No Symptoms Reported Musculoskeletal: reports: Muscle Pain, Muscle Weakness Integumentary: reports: Pruritis Neurological: reports: Numbness Endocrine: reports: Unexplained Weight Loss Physical Exam Vital Signs: Vital Signs Temperature 97.8 F 05/22/19 17:00 Pulse Rate 66 05/22/19 17:00 Respiratory Rate 20 05/22/19 17:00 Blood Pressure 141/80 05/22/19 17:00 O2 Sat by Pulse Oximetry (%) 100 05/22/19 09:00 Constitutional: Yes: Calm Eyes: Yes: EOM Intact HENT: Yes: Normocephalic Neck: Yes: Trachea Midline Cardiovascular: Yes: Regular Rate and Rhythm Respiratory: Yes: CTA Bilaterally Gastrointestinal: Yes: Normal Bowel Sounds ...Rectal Exam: Yes: Deferred Renal/: Yes: WNL Extremities: Yes: Cold Edema: No Integumentary: Yes: Onychomycosis, Venous Stasis Changes Wound/Incision: Yes: Dressing Dry and Intact Neurological: Yes: Alert, Oriented Labs: CBC, BMP 05/22/19 06:45 05/22/19 06:45 Problem List - Problems (1) TUSHAR (acute kidney injury) Problems reviewed: Yes Code(s): N17.9 - ACUTE KIDNEY FAILURE, UNSPECIFIED (2) Anemia Problems reviewed: Yes Code(s): D64.9 - ANEMIA, UNSPECIFIED (3) CAD (coronary artery disease) Code(s): I25.10 - ATHSCL HEART DISEASE OF [place] CORONARY ARTERY W/O ANG PCTRS (4) Diabetes mellitus Code(s): E11.9 - TYPE 2 DIABETES MELLITUS WITHOUT COMPLICATIONS (5) Elevated troponin Code(s): R79.89 - OTHER SPECIFIED ABNORMAL FINDINGS OF BLOOD CHEMISTRY (6) Gastroparesis diabeticorum Code(s): E11.43 - TYPE 2 DIABETES W DIABETIC AUTONOMIC (POLY)NEUROPATHY; K31.84 - GASTROPARESIS (7) HLD (hyperlipidemia) Code(s): E78.5 - HYPERLIPIDEMIA, UNSPECIFIED (8) HTN (hypertension) Code(s): I10 - ESSENTIAL (PRIMARY) HYPERTENSION Assessment/Plan Current Active Problems TUSHAR (acute kidney injury) (Acute) Anemia (Acute) CAD (coronary artery disease) (Acute) Diabetes mellitus (Acute) Elevated troponin (Acute) Gastroparesis diabeticorum (Acute) HLD (hyperlipidemia) (Acute) HTN (hypertension) (Acute) 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 (Acute) Abnormal Lab Results 05/22/19 05/22/19 05/22/19 06:45 06:45 06:45 Hgb 10.8 L Hct 32.7 L Anion Gap 6 L BUN 21.4 H Creatinine 1.8 H Random Glucose 117 H Hemoglobin A1c % 10.9 H Magnesium 1.5 L TIBC Unsaturated IBC Troponin I 0.11 H Albumin 3.2 L Ur Specific [place] Ur Random Creatinine Ur Random Potassium Ur Random Chloride 05/22/19 05/22/19 05/22/19 06:45 16:00 16:00 Hgb Hct Anion Gap BUN Creatinine Random Glucose Hemoglobin A1c % Magnesium TIBC 239 L Unsaturated IBC 156 L Troponin I Albumin Ur Specific [place] 1.006 L Ur Random Creatinine Ur Random Potassium 12.0 L Ur Random Chloride 89 L 05/22/19 16:00 Hgb Hct Anion Gap BUN Creatinine Random Glucose Hemoglobin A1c % Magnesium TIBC Unsaturated IBC Troponin I Albumin Ur Specific [place] Ur Random Creatinine 17.0 L Ur Random Potassium Ur Random Chloride Laboratory Results - last 24 hr 05/22/19 05/22/19 05/22/19 03:09 05:03 06:45 WBC 6.5 RBC 4.03 Hgb 10.8 L Hct 32.7 L MCV 81.1 MCH 26.7 MCHC 33.0 RDW 13.5 Plt Count 379 MPV 8.2 Absolute Neuts (auto) 4.6 Neutrophils % 71.5 Lymphocytes % 16.8 Monocytes % 7.1 Eosinophils % 3.9 Basophils % 0.7 Nucleated RBC % 0 Sodium Potassium Chloride Carbon Dioxide Anion Gap BUN Creatinine Est GFR (CKD-EPI)AfAm Est GFR (CKD-EPI)NonAf POC Glucometer 92 168 Random Glucose Hemoglobin A1c % Calcium Phosphorus Magnesium Iron TIBC Iron Saturation Unsaturated IBC Ferritin Total Bilirubin AST ALT Alkaline Phosphatase Creatine Kinase Troponin I Total Protein Albumin Triglycerides Cholesterol Total LDL Cholesterol HDL Cholesterol Vitamin B12 Serum Folate TSH Urine Color Urine Appearance Urine pH Ur Specific [place] Urine Protein Urine Glucose (UA) Urine Ketones Urine Blood Urine Nitrite Urine Bilirubin Urine Urobilinogen Ur Leukocyte Esterase Ur Random Creatinine Ur Random Sodium Ur Random Potassium Ur Random Chloride 05/22/19 05/22/19 05/22/19 06:45 06:45 06:45 WBC RBC Hgb Hct MCV MCH MCHC RDW Plt Count MPV Absolute Neuts (auto) Neutrophils % Lymphocytes % Monocytes % Eosinophils % Basophils % Nucleated RBC % Sodium 139 Potassium 5.0 Chloride 105 Carbon Dioxide 29 Anion Gap 6 L BUN 21.4 H Creatinine 1.8 H Est GFR (CKD-EPI)AfAm 47.37 Est GFR (CKD-EPI)NonAf 40.87 POC Glucometer Random Glucose 117 H Hemoglobin A1c % 10.9 H Calcium 8.5 Phosphorus 3.3 Magnesium 1.5 L Iron 83 TIBC 239 L Iron Saturation 34 Unsaturated IBC 156 L Ferritin 217.6 Total Bilirubin 0.6 AST 17 ALT 23 Alkaline Phosphatase 55 Creatine Kinase 51 Troponin I 0.11 H Total Protein 7.2 Albumin 3.2 L Triglycerides 69 Cholesterol 112 Total LDL Cholesterol 52 HDL Cholesterol 49 Vitamin B12 517 Serum Folate 17 TSH 0.69 Urine Color Urine Appearance Urine pH Ur Specific [place] Urine Protein Urine Glucose (UA) Urine Ketones Urine Blood Urine Nitrite Urine Bilirubin Urine Urobilinogen Ur Leukocyte Esterase Ur Random Creatinine Ur Random Sodium Ur Random Potassium Ur Random Chloride 05/22/19 05/22/19 05/22/19 11:33 16:00 16:00 WBC RBC Hgb Hct MCV MCH MCHC RDW Plt Count MPV Absolute Neuts (auto) Neutrophils % Lymphocytes % Monocytes % Eosinophils % Basophils % Nucleated RBC % Sodium Potassium Chloride Carbon Dioxide Anion Gap BUN Creatinine Est GFR (CKD-EPI)AfAm Est GFR (CKD-EPI)NonAf POC Glucometer 104 Random Glucose Hemoglobin A1c % Calcium Phosphorus Magnesium Iron TIBC Iron Saturation Unsaturated IBC Ferritin Total Bilirubin AST ALT Alkaline Phosphatase Creatine Kinase Troponin I Total Protein Albumin Triglycerides Cholesterol Total LDL Cholesterol HDL Cholesterol Vitamin B12 Serum Folate TSH Urine Color Yellow Urine Appearance Clear Urine pH 8.0 D Ur Specific [place] 1.006 L Urine Protein Negative Urine Glucose (UA) Negative Urine Ketones Negative Urine Blood Negative Urine Nitrite Negative Urine Bilirubin Negative Urine Urobilinogen 0.2 Ur Leukocyte Esterase Negative Ur Random Creatinine Ur Random Sodium 93 Ur Random Potassium 12.0 L Ur Random Chloride 89 L 05/22/19 05/22/19 05/22/19 16:00 17:40 20:57 WBC RBC Hgb Hct MCV MCH MCHC RDW Plt Count MPV Absolute Neuts (auto) Neutrophils % Lymphocytes % Monocytes % Eosinophils % Basophils % Nucleated RBC % Sodium Potassium Chloride Carbon Dioxide Anion Gap BUN Creatinine Est GFR (CKD-EPI)AfAm Est GFR (CKD-EPI)NonAf POC Glucometer 152 211 Random Glucose Hemoglobin A1c % Calcium Phosphorus Magnesium Iron TIBC Iron Saturation Unsaturated IBC Ferritin Total Bilirubin AST ALT Alkaline Phosphatase Creatine Kinase Troponin I Total Protein Albumin Triglycerides Cholesterol Total LDL Cholesterol HDL Cholesterol Vitamin B12 Serum Folate TSH Urine Color Urine Appearance Urine pH Ur Specific [place] Urine Protein Urine Glucose (UA) Urine Ketones Urine Blood Urine Nitrite Urine Bilirubin Urine Urobilinogen Ur Leukocyte Esterase Ur Random Creatinine 17.0 L Ur Random Sodium Ur Random Potassium Ur Random Chloride plan: bgm achs novolog scale once vomiting stops diet nutrition levemir 20 units am titirate to control fasting below 100mg/dl gi evaluation metaclorpromaide for gastroparesis
[2019-05-22 23:55] LABS: RETICULOCYTES 0.48 % (0.5-1.5)
[2019-05-23] MEDS: INSULIN (LEVEMIR) 100 UNITS/ML UNITS SQ SCH (06:25)
[2019-05-23] MEDS: METOCLOPRAMIDE HCL INJECTION 10 MG/2 ML VIAL IVPUSH SCH ×4 (06:25→21:01)
[2019-05-23] MEDS: POLYETHYLENE GLYCOL 3350 119 GM BTL PO SCH ×3 (06:25→21:01)
[2019-05-23] MEDS: INSULIN SLIDING SCALE (NOVOLOG) 1 VIAL SQ SCH ×4 (06:26→21:01)
[2019-05-23 07:32] LABS: HEMATOCRIT 33.9 % (35.4-49); HEMOGLOBIN 11.1 GM/dL (11.7-16.9); MCH 26.3 pg (25.7-33.7); MCHC 32.7 g/dl (32.0-35.9); MEAN CELL VOLUME 80.5 fl (80-96); MEAN PLT VOLUME 8.4 fl (7.5-11.1); PLATELET COUNT 355 K/MM3 (134-434); RBC 4.21 M/mm3 (4.00-5.60); RDW 13.7 % (11.9-15.9); WHITE BLOOD COUNT 5.7 K/mm3 (4.0-10.0)
[2019-05-23 08:27] LABS: BLOOD UREA NITROGEN 22.6 mg/dL (7-18); CALCIUM 9.1 mg/dL (8.5-10.1); CREATININE 1.9 mg/dL (0.55-1.3); POTASSIUM 5.1 mmol/L (3.5-5.1); TOT PROT 6.9 g/dl (6.4-8.2)
[2019-05-23] MEDS ORDERED: REGADENOSON 0.4 MG/5 ML PRE-FILLED SYRINGE IVPUSH ONE ×2 (09:32→10:00)
[2019-05-23] MEDS ORDERED: LISINOPRIL 5 MG TABLET (FP) PO SCH (10:00)
--- NOTE | 2019-05-23 11:10 | PN ---
Progress Note (short form) - Note Progress Note: s: no cp sob palps dizzy Current Medications Generic Name Dose Route Start Last Admin Trade Name Freq PRN Reason Stop Dose Admin Aspirin 81 mg 05/22/19 10:00 05/22/19 10:04 Asa - PO 81 mg DAILY DORIAN Administration Atorvastatin Calcium 40 mg 05/22/19 22:00 05/22/19 21:22 Lipitor - PO 40 mg HS DORIAN Administration Heparin Sodium (Porcine) 5,000 unit 05/21/19 22:00 05/22/19 21:25 Heparin - SQ 5,000 unit BID DORIAN Administration Sodium Chloride 1,000 mls @ 50 mls/hr 05/22/19 12:46 05/22/19 12:50 1/2 Normal Saline IV 50 mls/hr ASDIR DORIAN Administration Insulin Aspart 1 vial 05/23/19 07:00 05/23/19 06:26 Novolog Vial Sliding Scale - SQ Not Given ACHS [facility] Protocol Insulin Detemir 12 units 05/23/19 07:00 05/23/19 06:25 Levemir Vial SQ Not Given AM [facility] Insulin Human Regular units 05/22/19 10:00 Novolin R Vial *For Ivpush Or Iv Drip Only* SQ DAILY [facility] Lisinopril 2.5 mg 05/23/19 10:00 Prinivil PO DAILY [facility] Melatonin 5 mg 05/22/19 21:45 05/22/19 22:07 Melatonin PO 5 mg HS PRN Administration INSOMNIA Metoclopramide HCl 10 mg 05/21/19 20:19 05/23/19 06:25 Reglan Injection - IVPUSH Not Given Q6H-IV [facility] Ondansetron HCl 4 mg 05/21/19 14:15 Zofran Odt - SL TID PRN NAUSEA AND/OR VOMITING Pantoprazole Sodium 40 mg 05/22/19 10:00 05/22/19 10:04 Protonix - PO 40 mg DAILY DORIAN Administration Polyethylene Glycol 17 gm 05/22/19 14:00 05/23/19 06:25 Miralax (For Daily Use) - PO Not Given TID DORIAN Vital Signs Period Temp Pulse Resp BP Sys/[place] Pulse Ox Last 24 Hr 97.8 F-99.8 F 61-72 20-20 141-161/78-93 99-100 Constitutional: Yes: No Distress, Calm Eyes: Yes: Conjunctiva Clear HENT: Yes: Atraumatic Neck: Yes: Trachea Midline Respiratory: Yes: CTA Bilaterally Gastrointestinal: Yes: Soft (NT, no rebound or guarding) Cardiovascular: Yes: Regular Rate and Rhythm JVD: No Carotid Bruit: No PMI: Non-Displaced Heart Sounds: Yes: S1, S2 (rrr, no m/r/g) Edema: No Peripheral Pulses WNL: Yes Neurological: Yes: Alert, Oriented CBC, BMP 05/23/19 06:08 05/23/19 06:08 DATA: EKG: sinus, low voltage, old inf infarct, nonspecific T wave changes, no sig change from prior echo 04/2019: nl LV/RV function, mildly dilated LA/RA, tr MR, tr TR tele: sr Nausea: elevated lipase, normal transaminases and bili - manage per GI CAD s/p stents, elevated trop: - no recent cardiac follow up - trop indeterminate range, similar to last admission. ECG stable - echo unremarkable - cont aspirin, started statin - unlikely ACS - epigastric pain more likely 2/2 diabetic gastroparesis, however given hx will eval with mibi, if benign then ok for dc from cardiac pov smoking: - encouraged cessation DM: - manage per primary HTN: - stable, not on meds
--- NOTE | 2019-05-23 12:07 | PN ---
Progress Note, Physician Chief Complaint: AWAKE ALERT EVENTS AND NOTES REVIEWED AWAITING STRESS TEST RESULTS - Current Medication List Current Medications: Active Medications Aspirin (Asa -) 81 mg PO DAILY [facility] Last Admin: 05/22/19 10:04 Dose: 81 mg Atorvastatin Calcium (Lipitor -) 40 mg PO HS [facility] Last Admin: 05/22/19 21:22 Dose: 40 mg Heparin Sodium (Porcine) (Heparin -) 5,000 unit SQ BID [facility] Last Admin: 05/22/19 21:25 Dose: 5,000 unit Sodium Chloride (1/2 Normal Saline) 1,000 mls @ 50 mls/hr IV ASDIR [facility] Last Admin: 05/22/19 12:50 Dose: 50 mls/hr Insulin Aspart (Novolog Vial Sliding Scale -) 1 vial SQ ACHS [facility]; Protocol Last Admin: 05/23/19 11:52 Dose: Not Given Insulin Detemir (Levemir Vial) 12 units SQ AM [facility] Last Admin: 05/23/19 06:25 Dose: Not Given Insulin Human Regular (Novolin R Vial *For Ivpush Or Iv Drip Only*) units SQ DAILY [facility] Lisinopril (Prinivil) 2.5 mg PO DAILY [facility] Melatonin (Melatonin) 5 mg PO HS PRN PRN Reason: INSOMNIA Last Admin: 05/22/19 22:07 Dose: 5 mg Metoclopramide HCl (Reglan Injection -) 10 mg IVPUSH Q6H-IV [facility] Last Admin: 05/23/19 06:25 Dose: Not Given Ondansetron HCl (Zofran Odt -) 4 mg SL TID PRN PRN Reason: NAUSEA AND/OR VOMITING Pantoprazole Sodium (Protonix -) 40 mg PO DAILY [facility] Last Admin: 05/22/19 10:04 Dose: 40 mg Polyethylene Glycol (Miralax (For Daily Use) -) 17 gm PO TID [facility] Last Admin: 05/23/19 06:25 Dose: Not Given - Objective Vital Signs: Vital Signs Temperature 99.8 F H 05/23/19 08:29 Pulse Rate 65 05/23/19 08:29 Respiratory Rate 20 05/23/19 08:29 Blood Pressure 161/93 05/23/19 08:29 O2 Sat by Pulse Oximetry (%) 99 05/23/19 08:29 Constitutional: Yes: Mild Distress Cardiovascular: Yes: Regular Rate and Rhythm Respiratory: Yes: WNL Gastrointestinal: Yes: Soft Musculoskeletal: Yes: WNL Extremities: Yes: Deformity Peripheral Pulses WNL: Yes Integumentary: Yes: Other Wound/Incision: Yes: Dressing Dry and Intact (LEFT TOE) Neurological: Yes: Numbness, Paresthesia, Pre-Existing Deficit ...Motor Strength: LLE Psychiatric: Yes: WNL Labs: CBC, BMP 05/23/19 06:08 05/23/19 06:08 Problem List - Problems (1) TUSHAR (acute kidney injury) Code(s): N17.9 - ACUTE KIDNEY FAILURE, UNSPECIFIED (2) Anemia Code(s): D64.9 - ANEMIA, UNSPECIFIED (3) CAD (coronary artery disease) Code(s): I25.10 - ATHSCL HEART DISEASE OF [place] CORONARY ARTERY W/O ANG PCTRS (4) Diabetes mellitus Code(s): E11.9 - TYPE 2 DIABETES MELLITUS WITHOUT COMPLICATIONS (5) Gastroparesis diabeticorum Code(s): E11.43 - TYPE 2 DIABETES W DIABETIC AUTONOMIC (POLY)NEUROPATHY; K31.84 - GASTROPARESIS (6) HLD (hyperlipidemia) Code(s): E78.5 - HYPERLIPIDEMIA, UNSPECIFIED (7) HTN (hypertension) Code(s): I10 - ESSENTIAL (PRIMARY) HYPERTENSION (8) 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 Code(s): E13.40 - OTH DIABETES MELLITUS WITH DIABETIC NEUROPATHY, UNSPECIFIED (9) Nausea & vomiting Code(s): R11.2 - NAUSEA WITH VOMITING, UNSPECIFIED Assessment/Plan PATIENT HAD STRESS TEST TODAY AWAITING RESULTS RENAL FUNCTION CREAT 1.9 REGLAN FOR GASTROPARESIS WILL NEED GI WORKUP OUTPATIENT IF CARDIAC WORKUP NEGATIVE WILL DC HOME TOMORROW WITH STRICT DIABETIC REGIMEN AND A1C CONTROL. I RECOMMENDED A MICROBIOLOGY LAB ANALYST WITH [facility] TO FOLLOW SO THAT HE CAN MANAGE HIS DM/CAD. WOUND [facility]ARE CLINIC ON THE 5TH FLOOR OUTPATIENT FOLLOW UP MondayMay
[2019-05-23] MEDS: PANTOPRAZOLE 40 MG TABLET PO SCH (12:08)
[2019-05-23] MEDS: HEPARIN NA (PORCINE) 5,000 UNITS/ML 1ML VIAL SQ SCH ×2 (12:09→21:01)
[2019-05-23] MEDS: ASPIRIN 81 MG CHEWABLE TABLETS PO SCH (12:09)
[2019-05-23] MEDS: SODIUM CHLORIDE 0.45% 1,000 ML IV SCH (13:03)
[2019-05-23 13:15] LABS: TRANSGLUTAMINASE IGA < 2 U/mL (0-3); TRANSGLUTAMINASE IGG < 2 U/mL (0-5)
--- NOTE | 2019-05-23 15:30 | PN ---
Progress Note, Physician History of Present Illness: Pt seen and examined at bedside. He is awake and alert. He is tolerating diet. - Current Medication List Current Medications: Active Medications Aspirin (Asa -) 81 mg PO DAILY [facility] Last Admin: 05/23/19 12:09 Dose: 81 mg Atorvastatin Calcium (Lipitor -) 40 mg PO HS [facility] Last Admin: 05/22/19 21:22 Dose: 40 mg Heparin Sodium (Porcine) (Heparin -) 5,000 unit SQ BID [facility] Last Admin: 05/23/19 12:09 Dose: 5,000 unit Sodium Chloride (1/2 Normal Saline) 1,000 mls @ 50 mls/hr IV ASDIR [facility] Last Admin: 05/22/19 12:50 Dose: 50 mls/hr Insulin Aspart (Novolog Vial Sliding Scale -) 1 vial SQ ACHS [facility]; Protocol Last Admin: 05/23/19 11:52 Dose: Not Given Insulin Detemir (Levemir Vial) 12 units SQ AM [facility] Last Admin: 05/23/19 06:25 Dose: Not Given Insulin Human Regular (Novolin R Vial *For Ivpush Or Iv Drip Only*) units SQ DAILY [facility] Lisinopril (Prinivil) 2.5 mg PO DAILY [facility] Last Admin: 05/23/19 12:08 Dose: 2.5 mg Melatonin (Melatonin) 5 mg PO HS PRN PRN Reason: INSOMNIA Last Admin: 05/22/19 22:07 Dose: 5 mg Metoclopramide HCl (Reglan Injection -) 10 mg IVPUSH Q6H-IV [facility] Last Admin: 05/23/19 12:20 Dose: Not Given Ondansetron HCl (Zofran Odt -) 4 mg SL TID PRN PRN Reason: NAUSEA AND/OR VOMITING Pantoprazole Sodium (Protonix -) 40 mg PO DAILY [facility] Last Admin: 05/23/19 12:08 Dose: 40 mg Polyethylene Glycol (Miralax (For Daily Use) -) 17 gm PO TID [facility] Last Admin: 05/23/19 14:30 Dose: Not Given - Objective Vital Signs: Vital Signs Temperature 99.8 F H 05/23/19 08:29 Pulse Rate 77 05/23/19 12:00 Respiratory Rate 20 05/23/19 12:00 Blood Pressure 157/92 05/23/19 12:00 O2 Sat by Pulse Oximetry (%) 99 02/06/20 08:29 Constitutional: Yes: Calm Eyes: Yes: Conjunctiva Clear HENT: Yes: Atraumatic Neck: Yes: Supple Cardiovascular: Yes: S1, S2 Respiratory: Yes: CTA Bilaterally Gastrointestinal: Yes: Soft Genitourinary: Yes: WNL Musculoskeletal: Yes: WNL Edema: No Neurological: Yes: Oriented Psychiatric: Yes: Oriented Labs: CBC, BMP 05/23/19 06:08 05/23/19 06:08 Problem List - Problems (1) TUSHAR (acute kidney injury) Code(s): N17.9 - ACUTE KIDNEY FAILURE, UNSPECIFIED (2) HTN (hypertension) Code(s): I10 - ESSENTIAL (PRIMARY) HYPERTENSION Assessment/Plan Current Medications Generic Name Dose Route Start Last Admin Trade Name Freq PRN Reason Stop Dose Admin Aspirin 81 mg 05/22/19 10:00 05/23/19 12:09 Asa - PO 81 mg DAILY [facility] Administration Atorvastatin Calcium 40 mg 05/22/19 22:00 05/22/19 21:22 Lipitor - PO 40 mg HS [facility] Administration Heparin Sodium (Porcine) 5,000 unit 05/21/19 22:00 05/23/19 12:09 Heparin - SQ 5,000 unit BID [facility] Administration Sodium Chloride 1,000 mls @ 50 mls/hr 05/22/19 12:46 05/22/19 12:50 1/2 Normal Saline IV 50 mls/hr ASDIR [facility] Administration Insulin Aspart 1 vial 05/23/19 07:00 05/23/19 11:52 Novolog Vial Sliding Scale - SQ Not Given ACHS [facility] Protocol Insulin Detemir 12 units 05/23/19 07:00 05/23/19 06:25 Levemir Vial SQ Not Given AM [facility] Insulin Human Regular units 05/22/19 10:00 Novolin R Vial *For Ivpush Or Iv Drip Only* SQ DAILY [facility] Lisinopril 2.5 mg 05/23/19 10:00 05/23/19 12:08 Prinivil PO 2.5 mg DAILY [facility] Administration Melatonin 5 mg 05/22/19 21:45 05/22/19 22:07 Melatonin PO 5 mg HS PRN Administration INSOMNIA Metoclopramide HCl 10 mg 05/21/19 20:19 05/23/19 12:20 Reglan Injection - IVPUSH Not Given Q6H-IV [facility] Ondansetron HCl 4 mg 05/21/19 14:15 Zofran Odt - SL TID PRN NAUSEA AND/OR VOMITING Pantoprazole Sodium 40 mg 05/22/19 10:00 05/23/19 12:08 Protonix - PO 40 mg DAILY [facility] Administration Polyethylene Glycol 17 gm 05/22/19 14:00 05/23/19 14:30 Miralax (For Daily Use) - PO Not Given TID [facility] Laboratory Tests 05/22/19 16:00 Urine Protein Negative Urine Blood Negative Impression 1. TUSHAR 2. hyperkalemia 3. vomiting 4. htn 5. hld Plan - ua neg for blood or protein - will need outpt renal workup - pt tolerating diet - low potassium diet - will stop fluids
[2019-05-23] MEDS: ATORVASTATIN CA 40 MG TABLET (FP) PO SCH (21:01)
[2019-05-23] MEDS: MELATONIN 5 MG TABLETS PO PRN (21:01)
--- NOTE | 2019-05-23 22:02 | PN ---
Progress Note, Physician Chief Complaint: comfortable sugar improving - Current Medication List Current Medications: Active Medications Aspirin (Asa -) 81 mg PO DAILY [facility] Last Admin: 05/23/19 12:09 Dose: 81 mg Atorvastatin Calcium (Lipitor -) 40 mg PO HS [facility] Last Admin: 05/23/19 21:01 Dose: 40 mg Heparin Sodium (Porcine) (Heparin -) 5,000 unit SQ BID [facility] Last Admin: 05/23/19 21:01 Dose: 5,000 unit Insulin Aspart (Novolog Vial Sliding Scale -) 1 vial SQ ACHS [facility]; Protocol Last Admin: 05/23/19 21:01 Dose: 2 units Insulin Detemir (Levemir Vial) 12 units SQ AM [facility] Last Admin: 05/23/19 06:25 Dose: Not Given Insulin Human Regular (Novolin R Vial *For Ivpush Or Iv Drip Only*) units SQ DAILY [facility] Lisinopril (Prinivil) 2.5 mg PO DAILY [facility] Last Admin: 05/23/19 12:08 Dose: 2.5 mg Melatonin (Melatonin) 5 mg PO HS PRN PRN Reason: INSOMNIA Last Admin: 05/23/19 21:01 Dose: 5 mg Metoclopramide HCl (Reglan Injection -) 10 mg IVPUSH Q6H-IV [facility] Last Admin: 05/23/19 21:01 Dose: Not Given Ondansetron HCl (Zofran Odt -) 4 mg SL TID PRN PRN Reason: NAUSEA AND/OR VOMITING Pantoprazole Sodium (Protonix -) 40 mg PO DAILY [facility] Last Admin: 05/23/19 12:08 Dose: 40 mg Polyethylene Glycol (Miralax (For Daily Use) -) 17 gm PO TID [facility] Last Admin: 05/23/19 21:01 Dose: Not Given - Objective Vital Signs: Vital Signs Temperature 98.0 F 05/23/19 17:00 Pulse Rate 80 05/23/19 18:00 Respiratory Rate 20 05/23/19 17:00 Blood Pressure 135/92 05/23/19 17:00 O2 Sat by Pulse Oximetry (%) 99 05/23/19 19:56 Constitutional: Yes: Calm Eyes: Yes: EOM Intact HENT: Yes: Normocephalic Neck: Yes: Trachea Midline Cardiovascular: Yes: Regular Rate and Rhythm Respiratory: Yes: CTA Bilaterally Gastrointestinal: Yes: Normal Bowel Sounds ...Rectal Exam: Yes: Deferred Breast(s): Yes: WNL Musculoskeletal: Yes: WNL Edema: No Wound/Incision: Yes: Dressing Dry and Intact Labs: CBC, BMP 05/23/19 06:08 05/23/19 06:08 Problem List - Problems (1) TUSHAR (acute kidney injury) Code(s): N17.9 - ACUTE KIDNEY FAILURE, UNSPECIFIED (2) Anemia Code(s): D64.9 - ANEMIA, UNSPECIFIED (3) CAD (coronary artery disease) Code(s): I25.10 - ATHSCL HEART DISEASE OF [place] CORONARY ARTERY W/O ANG PCTRS (4) Diabetes mellitus Code(s): E11.9 - TYPE 2 DIABETES MELLITUS WITHOUT COMPLICATIONS (5) Elevated troponin Code(s): R79.89 - OTHER SPECIFIED ABNORMAL FINDINGS OF BLOOD CHEMISTRY (6) Gastroparesis diabeticorum Code(s): E11.43 - TYPE 2 DIABETES W DIABETIC AUTONOMIC (POLY)NEUROPATHY; K31.84 - GASTROPARESIS (7) HLD (hyperlipidemia) Code(s): E78.5 - HYPERLIPIDEMIA, UNSPECIFIED (8) HTN (hypertension) Code(s): I10 - ESSENTIAL (PRIMARY) HYPERTENSION Assessment/Plan Current Active Problems TUSHAR (acute kidney injury) (Acute) Anemia (Acute) CAD (coronary artery disease) (Acute) Diabetes mellitus (Acute) Elevated troponin (Acute) Gastroparesis diabeticorum (Acute) HLD (hyperlipidemia) (Acute) HTN (hypertension) (Acute) 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 (Acute) Abnormal Lab Results 05/22/19 05/23/19 05/23/19 06:45 06:08 06:08 Hgb 10.8 L 11.1 L Hct 32.7 L 33.9 L Retic Count 0.48 L Anion Gap 4 L BUN 22.6 H Creatinine 1.9 H Albumin 3.0 L Laboratory Results - last 24 hr 05/22/19 05/22/19 05/22/19 06:45 06:45 06:45 WBC 6.5 RBC 4.03 Hgb 10.8 L Hct 32.7 L MCV 81.1 MCH 26.7 MCHC 33.0 RDW 13.5 Plt Count 379 MPV 8.2 Absolute Neuts (auto) 4.6 Neutrophils % 71.5 Lymphocytes % 16.8 Monocytes % 7.1 Eosinophils % 3.9 Basophils % 0.7 Nucleated RBC % 0 Retic Count 0.48 L Sodium Potassium Chloride Carbon Dioxide Anion Gap BUN Creatinine Est GFR (CKD-EPI)AfAm Est GFR (CKD-EPI)NonAf POC Glucometer Random Glucose Calcium Total Bilirubin AST ALT Alkaline Phosphatase Total Protein Total Protein (PEP) 6.7 Albumin Albumin (PEP) 3.4 Globulin 3.3 Albumin/Globulin Ratio 1.0 Beta Globulins 0.9 PER M-Abdifatah Not observed Tiss Transglutamin IgG < 2 Tiss Transglutamin IgA < 2 05/23/19 05/23/19 05/23/19 06:01 06:08 06:08 WBC 5.7 RBC 4.21 Hgb 11.1 L Hct 33.9 L MCV 80.5 MCH 26.3 MCHC 32.7 RDW 13.7 Plt Count 355 MPV 8.4 Absolute Neuts (auto) Neutrophils % Lymphocytes % Monocytes % Eosinophils % Basophils % Nucleated RBC % Retic Count Sodium 139 Potassium 5.1 Chloride 106 Carbon Dioxide 30 Anion Gap 4 L BUN 22.6 H Creatinine 1.9 H Est GFR (CKD-EPI)AfAm 44.37 Est GFR (CKD-EPI)NonAf 38.28 POC Glucometer 110 Random Glucose 106 Calcium 9.1 Total Bilirubin 1.0 AST 24 ALT 20 Alkaline Phosphatase 50 Total Protein 6.9 Total Protein (PEP) Albumin 3.0 L Albumin (PEP) Globulin Albumin/Globulin Ratio Beta Globulins PER M-Abdifatah Tiss Transglutamin IgG Tiss Transglutamin IgA 05/23/19 05/23/19 05/23/19 11:46 16:59 20:58 WBC RBC Hgb Hct MCV MCH MCHC RDW Plt Count MPV Absolute Neuts (auto) Neutrophils % Lymphocytes % Monocytes % Eosinophils % Basophils % Nucleated RBC % Retic Count Sodium Potassium Chloride Carbon Dioxide Anion Gap BUN Creatinine Est GFR (CKD-EPI)AfAm Est GFR (CKD-EPI)NonAf POC Glucometer 138 226 171 Random Glucose Calcium Total Bilirubin AST ALT Alkaline Phosphatase Total Protein Total Protein (PEP) Albumin Albumin (PEP) Globulin Albumin/Globulin Ratio Beta Globulins PER M-Abdifatah Tiss Transglutamin IgG Tiss Transglutamin IgA plan: bgm qid novolog scale levemir 12 units amm continue wound care
[2019-05-24 03:29] VITALS: TEMP 97.9
[2019-05-24] MEDS: INSULIN SLIDING SCALE (NOVOLOG) 1 VIAL SQ SCH (06:38)
[2019-05-24] MEDS: POLYETHYLENE GLYCOL 3350 119 GM BTL PO SCH (06:39)
[2019-05-24] MEDS: INSULIN (LEVEMIR) 100 UNITS/ML UNITS SQ SCH (06:41)
[2019-05-24] MEDS: METOCLOPRAMIDE HCL INJECTION 10 MG/2 ML VIAL IVPUSH SCH (06:41)
[2019-05-24 07:59] VITALS: BP 145/84; PULSE 61
--- NOTE | 2019-05-24 08:27 | DS ---
Physical Examination Vital Signs: Vital Signs Temperature 97.9 F 05/24/19 02:00 Pulse Rate 61 05/24/19 07:56 Respiratory Rate 20 05/24/19 07:56 Blood Pressure 145/84 05/24/19 07:56 O2 Sat by Pulse Oximetry (%) 100 05/24/19 07:52 Findings/Remarks: FEELS BETTER , STRESS TEST SHOWS SOME CHANGES AND CAN FOLLOW UP WITH CARDIOLOGY OUTPATIENT Constitutional: Yes: No Distress HENT: Yes: WNL Neck: Yes: WNL Cardiovascular: Yes: WNL Respiratory: Yes: WNL Gastrointestinal: Yes: WNL Extremities: Yes: Other (LEFT TOE DRESSING FOR ULCER) Wound/Incision: Yes: Dressing Dry and Intact ...Motor Strength: LLE Labs: CBC, BMP 05/23/19 06:08 05/23/19 06:08 Discharge Summary Problems reviewed: Yes Reason For Visit: ELEVATED TROPONIN I LEVEL Current Active Problems TUSHAR (acute kidney injury) (Acute) Anemia (Acute) CAD (coronary artery disease) (Acute) Diabetes mellitus (Acute) Elevated troponin (Acute) Gastroparesis diabeticorum (Acute) HLD (hyperlipidemia) (Acute) HTN (hypertension) (Acute) 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 (Acute) Procedures: Principal: STRESS TEST, LABS Hospital Course: ADMITTED CARDIAC WORKUP, WILL NEED CARDIOLOGY OUTPATIENT CONSULT FOLLOW UP, WOUND CARE CLINIC FOR LEFT TOE ULCER, APPOINTMENT May 5TH FLOOR [facility], HOME HEALTH AID SENT FOR DIABETES EDUCATION, WOUND CARE Plan of Treatment: DIABETES CONTROL, CARDIOLOGY FOLLOW UP CLINIC FOR WOUND LEFT TOE FOLLOW UP Condition: Improved - Instructions Diet, Activity, Other Instructions: SEE DR RASMUSSEN IN 3 DAYS SEE WOUND CLINIC MondayMay CARDIOLOGY OUTPATIENT FOLLOW UP FOR STRESS TEST ABNORMALITY ADA/LOW FAT/CAD DIET Referrals: Cole Rasmussen MD [Primary Care Provider] - Disposition: [facility]/HOME HEALTH CARE - Home Medications Comprehensive Discharge Medication List: Ambulatory Orders Aspirin [ASA -] 81 mg PO DAILY #30 tab.chew 05/04/19 Atorvastatin Ca [Lipitor] 40 mg PO DAILY #30 tablet 05/04/19 Mupirocin Ointment [Bactroban 2% Ointment -] 1 applic TP TID #1 tube 05/04/19 metFORMIN HCL [Metformin HCl] 500 mg PO BID 30 Days #60 tablet 05/04/19 Ondansetron HCl [Zofran] 4 mg PO TID PRN #12 tablet 05/07/19 Insulin Glargine,Hum.rec.anlog [Basaglar Kwikpen U-100] 100 unit SQ DAILY #4 insuln.pen 05/24/19 Insulin Lispro [Humalog Kwikpen U-100] 100 unit SQ TID #4 insuln.pen 05/24/19 Lisinopril [Prinivil] 2.5 mg PO DAILY #30 tablet 05/24/19 Melatonin 5 mg PO HS PRN tab 05/24/19 Ondansetron [Zofran *Odt*] 4 mg SL TID PRN #30 tab.rapdis 05/24/19 Pantoprazole Sodium [Protonix -] 40 mg PO DAILY #30 tablet.ec 05/24/19 Polyethylene Glycol 3350 [Miralax 119 gm Btl -] 17 gm PO TID bottle 05/24/19
== END 2019-05-24 09:29 | disposition home health service (06) | DRG 48 ==
LOC: JER 09:26 → OBSVTOIN 13:45 → JERBED 13:45 → J4W 05-22 02:40
PROVIDERS: ADMIT Family Medicine; ATTEND Family Medicine
DX: E11.43 Type 2 diabetes mellitus with diabetic autonomic (poly)neuropathy (principal); K31.84 Gastroparesis; I10 Essential (primary) hypertension; I25.10 Atherosclerotic heart disease of native coronary artery without angina pectoris; R11.2 Nausea with vomiting, unspecified; E78.5 Hyperlipidemia, unspecified; R07.9 Chest pain, unspecified; F17.210 Nicotine dependence, cigarettes, uncomplicated; R79.89 Other specified abnormal findings of blood chemistry; E11.40 Type 2 diabetes mellitus with diabetic neuropathy, unspecified; E87.5 Hyperkalemia; E11.621 Type 2 diabetes mellitus with foot ulcer; N17.9 Acute kidney failure, unspecified; D64.9 Anemia, unspecified; Z95.5 Presence of coronary angioplasty implant and graft; E11.65 Type 2 diabetes mellitus with hyperglycemia
CPT/HCPCS: 36415; 71045-TC-FY; 74190-TC-FY; 76705-TC; 76775-TC; 78452-TC; 80053; 80061; 81003; 82436; 82550; 82565; 82607; 82728; 82746; 82962; 83036; 83516; 83540; 83550; 83690; 83721; 83735; 84100; 84133; 84155; 84165; 84300; 84443; 84484; 85025; 85027; 85044; 93005; 93010; 93017; 99285-25; A9502; J1644; J2785; J7030